=== PATIENT | female | born 1940 | race Caucasian/White ===

== ENCOUNTER → 2017-04-17 | Outpatient (CLI) | payer OTHER ==
--- NOTE | 2017-04-17 13:41 | DIAGNOSTIC IMAGING REPORT ---
LEFT TIBIA/FIBULA 2 VIEWS ROUTINE, LEFT ANKLE MIN 3 VIEWS ROUTINE CLINICAL HISTORY: M79.605 Leg pain, central, left. Left ankle pain. COMPARISON STUDY: None. FINDINGS: There is a left total knee arthroplasty. The bones are osteopenic. Soft tissue swelling within the distal left lower leg and left ankle. Severe osteoarthritis within the left ankle with [id number] articulation and subchondral sclerosis. No acute fracture or dislocation. Plantar heel spur. IMPRESSION: 1. No acute fracture or dislocation within the left tibia, fibula, or left ankle. 2. Severe osteoarthritis within the left ankle. Electronically signed by: Junior Howe M.D. 04/17/2017 1:40 PM Dictated Date/Time: 04/17/2017 1:36 PM
--- NOTE | 2017-04-17 13:42 | DIAGNOSTIC IMAGING REPORT ---
LEFT LOWER EXTREMITY VENOUS DOPPLER HISTORY: M79.605 Leg pain, central, left COMPARISON STUDY: None. FINDINGS: There is normal compressibility, flow, and augmentation within the left lower extremity deep venous system. IMPRESSION: No DVT within the left lower extremity. Electronically signed by: Junior Howe M.D. 04/17/2017 1:41 PM Dictated Date/Time: 04/17/2017 1:40 PM
--- NOTE | 2017-04-17 13:42 | DIAGNOSTIC IMAGING REPORT ---
LEFT TIBIA/FIBULA 2 VIEWS ROUTINE, LEFT ANKLE MIN 3 VIEWS ROUTINE CLINICAL HISTORY: M79.605 Leg pain, central, left. Left ankle pain. COMPARISON STUDY: None. FINDINGS: There is a left total knee arthroplasty. The bones are osteopenic. Soft tissue swelling within the distal left lower leg and left ankle. Severe osteoarthritis within the left ankle with [id number] articulation and subchondral sclerosis. No acute fracture or dislocation. Plantar heel spur. IMPRESSION: 1. No acute fracture or dislocation within the left tibia, fibula, or left ankle. 2. Severe osteoarthritis within the left ankle. Electronically signed by: Junior Howe M.D. 04/17/2017 1:40 PM Dictated Date/Time: 04/17/2017 1:36 PM
== END | disposition home or self-care (01) ==
PROVIDERS: ATTEND Physician Assistant Medical
DX: M79.605 Pain in left leg (principal); M19.072 Primary osteoarthritis, left ankle and foot

== ENCOUNTER → 2017-06-22 | Outpatient (CLI) | payer OTHER ==
--- NOTE | 2017-06-22 15:33 | MAMMOGRAPHY REPORT ---
BILATERAL DIGITAL SCREENING MAMMOGRAM WITH CAD: 06/22/2017 CLINICAL HISTORY: Routine screening. Patient has no complaints. TECHNIQUE: Bilateral CC, MLO and repeat left MLO views were obtained. Current study was also evaluat ed with a Computer Aided Detection (CAD) system. COMPARISON: Comparison is made to exams dated: 06/19/2016 mammogram, 06/18/2015 mammogram, 06/15/2014 m ammogram, 06/13/2013 mammogram, 06/09/2012 mammogram, and 05/28/2011 mammogram - [facility] nter. BREAST COMPOSITION: The tissue of both breasts is almost entirely fatty. FINDINGS: There is minimal vascular calcification in the breasts. A few stable benign-appearing pun ctate microcalcifications. No new suspicious mass, architectural distortion or cluster of microcalci fications is seen. IMPRESSION: ACR BI-RADS CATEGORY 1: NEGATIVE There is no mammographic evidence of malignancy. A 1 year screening mammogram is recommended. The pa tient will receive written notification of the results. Approximately 10% of breast cancers are not detected with mammography. A negative mammographic report should not delay biopsy if a clinically suggestive mass is present. Graciela Herrera M.D. ay/:06/22/2017 14:43:07 Drag Down: Merari NEVAREZ(R)(M), [facility] letter sent: Normal 1/2 BI-RADS Code: ACR BI-RADS Category 1: Negative
== END | disposition home or self-care (01) ==
LOC: C.MAMM 08:16
PROVIDERS: ATTEND Internal Medicine
DX: Z12.31 Encounter for screening mammogram for malignant neoplasm of breast (principal)

== ENCOUNTER → 2017-10-09 | Outpatient (CLI) | payer OTHER ==
[2017-10-09 12:21] LABS: BASO % 0.4 %; BASO ABS # 0.02 K/uL (0-0.2); COMPLETE YES; EOS % 1.8 %; HEMATOCRIT 39.8 % (37-47); IG% 0.2 %; LYMPH % 36.5 %; LYMPH ABS # 1.63 K/uL (1.2-3.4); MEAN CELL VOLUME 100.3 fL (80-100); MEAN CORPUSCULAR HEMOGLOBIN 33.2 pg (25-34); MEAN CORPUSCULAR HGB CONC 33.2 g/dl (32-36); MEAN PLATELET VOLUME 9.3 fL (7.4-10.4); MONO % 7.8 %; NEUT % 53.3 %; PLATELET COUNT 217 K/uL (130-400); RED BLOOD COUNT 3.97 M/uL (4.2-5.4); WHITE BLOOD COUNT 4.46 K/uL (4.8-10.8)
[2017-10-09 12:40] LABS: ALT/SGPT 34 U/L (12-78); AST/SGOT 22 U/L (15-37); BLOOD UREA NITROGEN 23 mg/dl (7-18); BUN/CREATININE RATIO 29.6 (10-20); CALCIUM 8.8 mg/dl (8.5-10.1); CARBON DIOXIDE 31 mmol/L (21-32); CHLORIDE 105 mmol/L (98-107); CHOLESTEROL 178 mg/dl (0-200); CREATININE 0.76 mg/dl (0.60-1.20); GLUCOSE 97 mg/dl (70-99); POTASSIUM 4.4 mmol/L (3.5-5.1); SODIUM 140 mmol/L (136-145); TRIGLYCERIDES 115 mg/dl (0-150); URIC ACID 4.4 mg/dl (2.6-7.2); VERY LOW DENSITY LIPOPROT CALC 23 mg/dl
[2017-10-09 12:50] LABS: ALB/GLOB RATIO 1.1 (0.9-2); ALKALINE PHOSPHATASE 71 U/L (45-117); HDL CHOLESTEROL 60 mg/dl; LDL CHOLESTEROL CALCULATED 95 mg/dl; THYROID STIMULATING HORMONE 0.806 uIu/ml (0.300-4.500)
== END | disposition home or self-care (01) ==
LOC: C.LABBFT 10:08
PROVIDERS: ATTEND Physician Assistant Medical
DX: M19.079 Primary osteoarthritis, unspecified ankle and foot (principal); E78.00 Pure hypercholesterolemia, unspecified

== ENCOUNTER → 2017-10-13 | Outpatient (CLI) | payer OTHER ==
--- NOTE | 2017-10-13 15:23 | DIAGNOSTIC IMAGING REPORT ---
L FOOT MIN 3 VIEWS ROUTINE CLINICAL HISTORY: 77 years-old Female presenting with M19.079 Osteoarthritis of [id number]. TECHNIQUE: Frontal, oblique, and lateral views of the left foot were obtained. COMPARISON: None. FINDINGS: Mild diffuse subcutaneous edema suggested. No acute fracture or malalignment. Prominent bone spur at the origin of the plantar fascia. Degenerative changes noted in the midfoot. IMPRESSION: Degenerative changes in the midfoot. Electronically signed by: Ivan Cary M.D. 10/13/2017 3:22 PM Dictated Date/Time: 10/13/2017 3:19 PM
[2017-10-13 17:10] LABS: FERRITIN 55.1 ng/ml (8.0-388.0)
== END | disposition home or self-care (01) ==
LOC: C.RAD1850 15:07
PROVIDERS: ATTEND Physician Assistant Medical
DX: M19.079 Primary osteoarthritis, unspecified ankle and foot (principal); D64.9 Anemia, unspecified

== ENCOUNTER 2021-01-29 11:20 | Inpatient (IN) ==
[2021-01-29] MEDS ORDERED: DEXAMETHASONE SOD INJ 4 MG/ML VIAL IV STA (11:29)
[2021-01-29] MEDS ORDERED: SODIUM CHLORIDE 0.9% 1000ML 1,000 ML IV STA (11:31)
--- NOTE | 2021-01-29 12:05 | XRay Report ---
XR chest 1V portable CLINICAL HISTORY: Chest pain. COMPARISON STUDY: No previous studies for comparison. FINDINGS: There are median sternotomy wires. No pneumothorax is noted. There may be trace bilateral p leural effusions. Lung volumes are diminished. Interstitial thickening is noted. There is suspected m ild bilateral airspace opacities. There is moderate cardiomegaly. Right hilar prominence is noted. IMPRESSION: 1. Interstitial thickening and suspected bilateral airspace opacities. The findings may reflect pulmo nary edema or an infectious process. Radiographic follow-up is recommended. 2. Possible trace bilateral pleural effusions. 3. Low lung volumes. 4. Cardiomegaly. 5. Right hilar prominence, likely due to pulmonary vessels. However, this should be assessed on follo w-up chest radiographs. ACT 112: Negative or not required by law. Electronically signed by: Chiki Jaime M.D. 01/29/2021 12:04 PM
[2021-01-29 12:21] LABS: Basophils # (auto) 0.03 K/uL (0-0.2); Basophils % (auto) 0.5 %; Eosinophils # (auto) 0.04 K/uL (0-0.5); Eosinophils % (auto) 0.7 %; Hematocrit (blood only) 36.6 % (37-47); Hemoglobin 12.3 g/dL (12.0-16.0); Immature Granulocytes # (auto) 0.01 K/uL (0.00-0.02); Immature Granulocytes % (auto) 0.2 %; Lymphocytes # (auto) 0.99 K/uL (1.2-3.4); Lymphocytes % (auto) 17.9 %; Mean Corpuscular Hemoglobin 33.3 pg (25-34); Mean Corpuscular Hgb Conc 33.6 g/dL (32-36); Mean Corpuscular Volume 99.2 fL (80-100); Mean Platelet Volume 9.5 fL (7.4-10.4); Monocytes # (auto) 0.41 K/uL (0.11-0.59); Monocytes % (auto) 7.4 %; Neutrophils # (auto) 4.06 K/uL (1.4-6.5); Neutrophils % (auto) 73.3 %; Platelet Count 211 K/uL (130-400); RDW Coefficient of Variation 15.3 % (11.5-14.5); RDW Standard Deviation 54.7 fL (36.4-46.3); Red Blood Count 3.69 M/uL (4.2-5.4); White Blood Count 5.54 K/uL (4.8-10.8)
[2021-01-29 12:35] LABS: Partial Thromboplastin Ratio 1.2; Partial Thromboplastin Time 30.7 Seconds (21.0-31.0); Prothrombin Time 10.3 Seconds (9.0-12.0)
[2021-01-29 12:49] LABS: BUN Creatinine Ratio 18.9 (10-20); Creatinine Clr Calc Pharmacy 57.4 ml/min; Est GFR (Non-African American) 60.4; Magnesium 2.3 mg/dl (1.8-2.4); Potassium 4.1 mmol/L (3.5-5.1)
[2021-01-29 12:54] LABS: Troponin I 0.032 ng/ml (0-0.045)
[2021-01-29 12:58] LABS: Influenza A virus by PCR Negative (Neg); Influenza B virus by PCR Negative (Neg); RSV by PCR Negative (Neg); SARS CoV2 RNA(COVID-19) InHosp NEGATIVE (Negative)
[2021-01-29] MEDS ORDERED: FUROSEMIDE 40 MG/4 ML VIAL IV STA (13:10)
[2021-01-29] MEDS ORDERED: OPTIRAY 320 125ml IV ONE (13:26)
--- NOTE | 2021-01-29 13:44 | CT Scan Report ---
CT ANGIOGRAM OF THE CHEST CLINICAL HISTORY: Atypical chest pain. Dyspnea. COMPARISON STUDY: Chest x-ray dated 01/29/2021. TECHNIQUE: Following the IV administration of 120 cc of Optiray 320, CT angiogram of the chest was pe rformed from the upper abdomen to the thoracic inlet utilizing the pulmonary embolus protocol. Images are reviewed in the axial, sagittal, and coronal planes. 3-D MIPS images are created and assessed. I V contrast was administered without complication. A dose lowering technique was utilized adhering to the principles of ALARA. CT DOSE: 654.16 mGy.cm FINDINGS: Thyroid: Normal in size and heterogeneous in attenuation. Thoracic aorta: There is atherosclerotic calcification of the thoracic aorta, which is normal in kimber kalpesh and demonstrates standard 3-vessel arch anatomy. No dissection is seen. Pulmonary vasculature: The pulmonary trunk is normal in caliber. There are no filling defects identif ied in main, lobar, or segmental pulmonary branches to suggest pulmonary embolus. Evaluation of the p eripheral branches is degraded by motion artifact. Heart: The patient is status post midline sternotomy. The heart is enlarged and without pericardial e ffusion. The coronary arteries, aortic valve leaflets, and mitral annulus are densely calcified. Lungs and pleural spaces: Evaluation of the lung parenchyma is degraded by motion artifact. Diffuse i ntralobular septal thickening is seen throughout both lungs with associated groundglass change. There are moderate pleural effusions with associated atelectasis. There are scattered calcified granulomas . Mediastinum: There is no mediastinal lymphadenopathy. Cassi: Clear. Axillae: There is no axillary lymphadenopathy. Upper abdomen: Calcified gallstones and/or gallbladder wall calcifications are partially imaged. A sm all hiatal hernia is noted. Partially visualized upper abdominal viscera is otherwise within normal l imits. Skeletal structures: The skeletal structures are osteopenic. Degenerative change is noted in the shou lders and thoracic spine. No lytic or blastic bony lesions are seen. IMPRESSION: 1. There is no evidence of pulmonary embolus in the main, lobar, or segmental pulmonary arteries. 2. Cardiomegaly with evidence of congestive failure. 3. Diffuse groundglass change likely represents pulmonary edema. Correlate clinically for evidence of a superimposed infectious/inflammatory pneumonitis. 4. Moderate pleural effusions. 5. Calcified gallstones and/or gallbladder wall calcifications are partially visualized. This could b e further assessed with a right upper quadrant ultrasound if clinically warranted. 6. Additional findings as above. ACT 112: Negative or not required by law. Electronically signed by: Ricky Hammer M.D. 01/29/2021 1:43 PM
--- NOTE | 2021-01-29 14:51 | Electrocardiogram Report ---
Test Reason : Blood Pressure : / mmHG Vent. Rate : 084 BPM Atrial Rate : 084 BPM P-R Int : 200 ms QRS Dur : 108 ms QT Int : 406 ms P-R-T Axes : 060 039 183 degrees QTc Int : 479 ms Normal sinus rhythm Possible Left atrial enlargement Abnormal ECG When compared with ECG of 25-FEB-2005 14:14, QRS duration has increased Nonspecific T wave abnormality, worse in Inferior leads T wave inversion now evident in Lateral leads QT has lengthened Confirmed by Myron Brown ([id number]) on 01/29/2021 2:51:04 PM Referred By: REFERRED SELF Confirmed By:Myron Brown
--- NOTE | 2021-01-29 15:42 | History & Physical Report ---
Date of Service January 29, 2021 Assessment & Plan (1) CHF (congestive heart failure): Patient with acute on chronic failure, currently her physical exam and activity restrictions are likely potentiating each other symptoms - Will get an ECHO to evaluate her valves- high suspicion for Aortic and Mitral Valve dysfunction - Diurese with another 40mg lasix tonight- then re-assess in morning- do not want to drop her pre-load to aggressivly - Continue her Metoprolol and may need an increase- evaluate following ECHo - Pulmonary congestion evident on CT scan and CXR- with likely transudative pleural effusions- diurese (2) Murmur: As above, consistent with Aortic and Mitral systolic murmurs. (3) History of aortic valve replacement: As above - Cardiology consulted to assist with medical evaluation (4) HTN (hypertension): Well controlled - Continue metoprolol - Continue risk reduction with ASA, statin - Consider SEAN following ECHO - Will get one more set of Troponins. (5) Arthritis: Chronic with bilateral knees - Hold NSAIDs while in house - Tylenol 650mg Q4 - Can add on lidocaine patch or cream if needed for discomfort (6) Pleural effusion: Likely transudative with history and physical exam - no acute need for intervention - diurese will be slow but should decrease - follow clinically History of Present Illness Chief Complaint: shortness of breath Primary Care Provider: Chester Garcia MD 80 YOF with past medical history of Arthritis, bilateral knee replacements, Aortic-bioprosthetic valve replacement (2008), mild mitral regurge, HTN, HLD, obesity. Patient came to the emergency room for 3 days of increased dyspnea and chest pain. The pain is in the center of her chest and is a burning pain, not a pain that she normal gets with her reflex. The pain would come and go, she does NOT notice that it gets worse with activity. The pain does not radiate and maybe associated with her shortness of breath. Denies any nausea vomiting. Her dyspnea is significantly worse, she gets short of breath walking ~25-30 feet, she normally has 1 pillow orthopnea and used 3 pillows last night and unable to sleep much, she also has 12 steps at home to go up and has to stop about every 3 steps to take a break. She thinks that possibly the dyspnea has been going on a little longer but is unsure. She is followed by Dr. Carney for cardiology was last seen in May and had an ECHO done at that time (EF 60-65%, normal prosthetic valve, mild MR diastolic dysfunction grade II). In the ER the patient had a CT scan of the chest which was negative for PE, CXR, ECG, elevated BNP. Was given 40 mg IV Lasix and Decadron 6mg IV. Hospitalist team was notified for admission. Patient will be admitted to obtain an ECHO to evaluate her heart valve and function, diurese, and monitor telemetry. Allergies Allergy/AdvReac Type Severity Reaction Status Date / Time No Known Allergies Allergy Unknown PT NOT Verified 01/29/21 14:02 ALLERGIC TO OXYCODONE-HAD BEFORE WITHOUT PROB Home Medications Medication Instructions Recorded Confirmed Type aspirin 325 mg tablet 325 mg PO DAILY tab 05/24/19 01/29/21 History cholecalciferol (vitamin D3) 25 1,000 units PO DAILY cap 05/24/19 01/29/21 History mcg (1,000 unit) capsule coenzyme Q10 100 mg capsule 100 mg PO DAILY cap 05/24/19 01/29/21 History cranberry 400 mg capsule 400 mg PO DAILY 05/24/19 01/29/21 History multivitamin 1 tab PO DAILY 05/24/19 01/29/21 History potassium 99 mg tablet 99 mg PO DAILY tab 06/06/19 01/29/21 History vitamin E acetate 1 tab PO DAILY 06/06/20 01/29/21 History zinc sulfate 1 tab PO DAILY 06/06/20 01/29/21 History atorvastatin 80 mg tablet 80 mg PO DAILY #90 tab 08/28/20 01/29/21 Rx celecoxib 200 mg capsule 200 mg PO DAILY #90 cap 01/08/21 01/29/21 Rx metoprolol tartrate 25 mg tablet 25 mg PO BID #180 tab 01/28/21 01/29/21 Rx Past Med/Surg History Medical History (Updated 01/29/21 @ 18:05 by Ricky Enriquez) Arthritis HLD (hyperlipidemia) HTN (hypertension) Hypercholesterolemia Spinal stenosis Surgical History (Updated 01/29/21 @ 15:29 by MEGAN Blancas) History of aortic valve replacement 2008, Dr Quintero, [facility] [place] History of back surgery History of cataract surgery History of total knee arthroplasty B/L, 2004, Dr Tavares History of tubal ligation Hx of repair of rotator cuff right, 1992, Dr Tavares Family History Mother Coronary heart disease Father Malignant neoplasm of pancreas Denies family history of Ovarian cancer Prostate cancer Myocardial infarction Breast cancer Colorectal cancer Social History Smoking Status: Former smoker Tobacco Type: Cigarettes Age Started Using Tobacco: 15; Age Quit Using Tobacco: 52; packs per day: 1; Years Smoked: 37; Cigarettes Per Day: 20; Number of Years Since Quit: 27; Second Hand Exposure: No; Do You Dip or Chew Tobacco: No; Hx Alcohol Use: No Hx Substance Use: No Preferred Language: Bulgarian Communication Ability: Effective Visual Impairment: No Limitations Hearing Ability: Normal Embedded Software Developer Required: No Beliefs That Will Affect Care: None marital status: Current Living Situation: Significant Other current occupational status: retired Feels Safe at Home: Yes Safety Concerns: Feels Safe At This Time Childhood Exposure to Second-Hand Smoke: No Dental Care, Regularly: No Physical Activity Frequency: Does not Exercise Seatbelt Use: always Sunscreen Use: Yes Assistive Devices: None Review of Systems Review of Systems: REVIEW OF SYSTEMS: Constitutional: No fever, sweats or chills Eyes: No diplopia, no worsening or blurred vision ENT: normal hearing, no trouble swallowing Respiratory: (+) dyspnea at rest or on exertion, No cough, sputum, Cardiovascular: (+) chest pain, (-) tightness or palpitations Abdomen: No pain, nausea, vomiting, diarrhea or constipation Musculoskeletal: No joint pain, calf pain, swelling Neurologic: No weakness, numbness/tingling, or balance problems Psychiatric: No anxiety or depression Skin: No rash or itch Physical Exam Physical Exam: PHYSICAL EXAM: General: awake, alert, no apparent distress Head: Normocephalic, atraumatic ENT: PERRL, EOMI, no pharyngeal exudate, mucous membranes moist Neuro: AAO x 3, speech clear and appropriate, strength intact bilaterally 5/5, sensation intact and equal all extremities and dermatomes, no pronator drift Chest: equal rise and fall of the chest, no accessory muscle use, can not lay flat, no heaves or thrills, bilateral scattered crackles to auscultation, on 2lNC Cardiac: Regular rate and rhythm, telemetry, reviewed, skin warm dry, cap refill <3 seconds, peripheral pulses +2 no JVD, systolic murmurs best heard at RSB and LSB with radiation to the carotids as well as to the axillae. Mitral is high pitched crescendo decrescendo, Aortic is crescendo. GI: NABS x 4 quadrants, soft, nontender to palpation, no rebound, guarding or tenderness : Spontaneously voiding, no pain, no CVA tenderness, Extremities: Normal inspection, no peripheral edema or erythema, calfs nontender to palpation Psych: Normal mood and affect Skin: no rash or erythema Results & Data Results & Data ([facility]) Vital Signs (Past 12 Hours) Vital Signs Temp Pulse Resp BP Pulse Ox 01/29/21 14:00 64 20 149/74 H 98 01/29/21 13:38 76 28 H 126/72 99 01/29/21 13:16 61 18 131/63 100 01/29/21 13:00 64 19 117/68 100 01/29/21 12:45 62 24 119/52 L 99 01/29/21 12:30 62 23 119/51 L 100 01/29/21 12:16 68 22 123/55 L 99 01/29/21 12:03 70 24 142/56 H 99 01/29/21 12:01 76 23 132/60 99 01/29/21 12:00 71 22 98 01/29/21 11:45 70 22 122/65 98 01/29/21 11:42 72 18 98 01/29/21 11:34 70 18 148/79 H 98 01/29/21 11:32 89 L 01/29/21 11:23 36.2 C L 101 H 20 145/71 H 89 L Laboratory Results Abnormal lab results 01/29/21 01/29/21 Range/Units 11:54 11:54 RBC 3.69 L (4.2-5.4) M/uL Hct 36.6 L (37-47) % RDW Std Deviation 54.7 H (36.4-46.3) fL RDW Coeff of Lynnette 15.3 H (11.5-14.5) % Lymph # (Auto) 0.99 L (1.2-3.4) K/uL Chloride 108 H (98-107) mmol/L Glucose 116 H (70-99) mg/dl NT-Pro-B Natriuret Pep 6993 H (0-1800) pg/ml Diagnostic Findings XR chest 1V portable CLINICAL HISTORY: Chest pain. COMPARISON STUDY: No previous studies for comparison. FINDINGS: There are median sternotomy wires. No pneumothorax is noted. There may be trace bilateral pleural effusions. Lung volumes are diminished. Interstitial thickening is noted. There is suspected mild bilateral airspace opacities. There is moderate cardiomegaly. Right hilar prominence is noted. IMPRESSION: 1. Interstitial thickening and suspected bilateral airspace opacities. The findings may reflect pulmonary edema or an infectious process. Radiographic follow-up is recommended. 2. Possible trace bilateral pleural effusions. 3. Low lung volumes. 4. Cardiomegaly. 5. Right hilar prominence, likely due to pulmonary vessels. However, this should be assessed on follow-up chest radiographs. CT ANGIOGRAM OF THE CHEST CLINICAL HISTORY: Atypical chest pain. Dyspnea. COMPARISON STUDY: Chest x-ray dated 01/29/2021. TECHNIQUE: Following the IV administration of 120 cc of Optiray 320, CT angiogram of the chest was performed from the upper abdomen to the thoracic inlet utilizing the pulmonary embolus protocol. Images are reviewed in the axial, sagittal, and coronal planes. 3-D MIPS images are created and assessed. IV contrast was administered without complication. A dose lowering technique was utilized adhering to the principles of ALARA. CT DOSE: 654.16 mGy.cm FINDINGS: Thyroid: Normal in size and heterogeneous in attenuation. Thoracic aorta: There is atherosclerotic calcification of the thoracic aorta, which is normal in caliber and demonstrates standard 3-vessel arch anatomy. No dissection is seen. Pulmonary vasculature: The pulmonary trunk is normal in caliber. There are no filling defects identified in main, lobar, or segmental pulmonary branches to suggest pulmonary embolus. Evaluation of the peripheral branches is degraded by motion artifact. Heart: The patient is status post midline sternotomy. The heart is enlarged and without pericardial effusion. The coronary arteries, aortic valve leaflets, and mitral annulus are densely calcified. Lungs and pleural spaces: Evaluation of the lung parenchyma is degraded by motion artifact. Diffuse intralobular septal thickening is seen throughout both lungs with associated groundglass change. There are moderate pleural effusions with associated atelectasis. There are scattered calcified granulomas. Mediastinum: There is no mediastinal lymphadenopathy. Cassi: Clear. Axillae: There is no axillary lymphadenopathy. Upper abdomen: Calcified gallstones and/or gallbladder wall calcifications are partially imaged. A small hiatal hernia is noted. Partially visualized upper abdominal viscera is otherwise within normal limits. Skeletal structures: The skeletal structures are osteopenic. Degenerative change is noted in the shoulders and thoracic spine. No lytic or blastic bony lesions are seen. IMPRESSION: 1. There is no evidence of pulmonary embolus in the main, lobar, or segmental pulmonary arteries. 2. Cardiomegaly with evidence of congestive failure. 3. Diffuse groundglass change likely represents pulmonary edema. Correlate clinically for evidence of a superimposed infectious/inflammatory pneumonitis. 4. Moderate pleural effusions. 5. Calcified gallstones and/or gallbladder wall calcifications are partially visualized. This could be further assessed with a right upper quadrant ultrasound if clinically warranted. 6. Additional findings as above. Medications Administered Home Medications aspirin 325 mg tablet 325 mg PO DAILY tab 05/24/19 [History Confirmed 01/29/21] cholecalciferol (vitamin D3) 25 mcg (1,000 unit) capsule 1,000 units PO DAILY cap 05/24/19 [History Confirmed 01/29/21] coenzyme Q10 100 mg capsule 100 mg PO DAILY cap 05/24/19 [History Confirmed 01/29/21] cranberry 400 mg capsule 400 mg PO DAILY 05/24/19 [History Confirmed 01/29/21] multivitamin 1 tab PO DAILY 05/24/19 [History Confirmed 01/29/21] potassium 99 mg tablet 99 mg PO DAILY tab 06/06/19 [History Confirmed 01/29/21] vitamin E acetate 1 tab PO DAILY 06/06/20 [History Confirmed 01/29/21] zinc sulfate 1 tab PO DAILY 06/06/20 [History Confirmed 01/29/21] atorvastatin 80 mg tablet 80 mg PO DAILY #90 tab 08/28/20 [Rx Confirmed 01/29/21] celecoxib 200 mg capsule 200 mg PO DAILY #90 cap 01/08/21 [Rx Confirmed 01/29/21] metoprolol tartrate 25 mg tablet 25 mg PO BID #180 tab 01/28/21 [Rx Confirmed 01/29/21] Dexamethasone (Dexamethasone Sod Inj 4 Mg/Ml Vial) 6 mg IV NOW STA Stop: 01/29/21 11:30 Last Admin: 01/29/21 11:55 Dose: 6 mg Documented by: [id number] Furosemide (Furosemide 40 Mg/4 Ml Vial) 40 mg IV NOW STA Stop: 01/29/21 13:11 Last Admin: 01/29/21 13:20 Dose: 40 mg Documented by: [id number] Sodium Chloride (Nss 1000ml) 1,000 mls @ 999 mls/hr IV .Q1H1M STA Stop: 01/29/21 12:31 Last Admin: 01/29/21 11:55 Dose: Not Given Documented by: [id number] Ioversol (Optiray 320 125ml) 120 ml IV ONCE ONE Stop: 01/29/21 13:27 Last Admin: 01/29/21 13:26 Dose: 120 ml Documented by: [id number] ECG Additional Comments: Test Reason : Vent. Rate : 084 BPM Atrial Rate : 084 BPM P-R Int : 200 ms QRS Dur : 108 ms QT Int : 406 ms P-R-T Axes : 060 039 183 degrees QTc Int : 479 ms Normal sinus rhythm Possible Left atrial enlargement Abnormal ECG When compared with ECG of 25-FEB-2005 14:14, QRS duration has increased Nonspecific T wave abnormality, worse in Inferior leads T wave inversion now evident in Lateral leads QT has lengthened Confirmed by Myron Brown ([id number]) on 01/29/2021 2:51:04 PM Code Status & VTE Plan Code Status CODE: FULL VTE: Lovenox 40 QD VTE Prophylaxis Plan VTE Prophylaxis will be ordered: Yes Supervising Physician Co-Signing Physician Notes Attending Attestation: Pt seen and examined, chart reviewed, admit care plan d/w MEGAN Ames. I agree w/ the ortiz components of his documentation. 80yo female with known valvular heart disease - s/p AVR (bovine) in 2008 - follows w/ Dr Carney. Presents with worsening dyspnea and edema with clinical/radiographic evidence of decompensated CHF. PMH, PSH, allergies, meds, sochx, famhx - reviewed of note - patient is not on diuretics at home VSS, mild hypoxia gen - NAD, obese neck - JVD present heart - 3/6 holosystolic murmur RUSB; 1-2/6 systolic murmur LLSB w/ radiation to axillae; RRR, s1 s2 lungs - bibasilar rales abd - soft ext - 1+ edema b/l labs reviewed imaging and EKG reviewed A/P: 1. acute/chronic diastolic CHF 2. h/o valvular heart disease s/p AVR 2008; now with significant aortic murmur worrisome for worsening AVR function diurese echo cards consult cont beta daniel, asa, statin Branden Ramirez MD PG Care Time/CCT Total # of Minutes Spent Total Time Spent with Patient: Total time spent is greater than 50% in coordination of care (as documented) at patient's floor/unit and/or counseling patient: Coding Level of Care Code 95744 Initial Inpt Care Lvl 2 Diagnoses CHF (congestive heart failure) I50.31 Heart failure chronicity: acute Heart failure type: diastolic Murmur R01.1 History of aortic valve replacement Z95.2 HTN (hypertension) I10 Hypertension type: essential hypertension Arthritis M19.90 Pleural effusion J90 (1) CHF (congestive heart failure) Heart failure chronicity: acute Heart failure type: diastolic Qualified Code(s): I50.31 - Acute diastolic (congestive) heart failure (2) HTN (hypertension) Hypertension type: essential hypertension Qualified Code(s): I10 - Essential (primary) hypertension
[2021-01-29] MEDS ORDERED: ONDANSETRON INJ 2 MG/ML 2 ML VIAL IV PRN (17:49)
[2021-01-29] MEDS ORDERED: POLYETHYLENE (MIRALAX) 17 GM PACK PO PRN (17:49)
[2021-01-29] MEDS ORDERED: ACETAMINOPHEN 325 MG TAB PO PRN (17:49)
--- NOTE | 2021-01-29 17:57 | Emergency Department Note ---
History of Present Illness General Chief complaint: Shortness of Breath/Dyspnea Stated complaint: SOB, CHEST PAIN Time Seen by Provider: 01/29/21 11:28 History of Present Illness Provider complaint: Shortness of breath Onset (ago): week(s) 1 Location: chest Radiation: non-radiation Severity: mild Pain Consistency: + intermittent Maximum Pain Intensity: 3 Current Pain Intensity: 0 Quality: + aching Relieved By: + none Exacerbated By: + none Associated symptoms: + chest pain and + shortness of breath; no cough, no fever/chills, no headaches, no nausea/vomiting and no syncope 72-year-old female presents emergency department for chest pain difficulty breathing. Patient reports her symptoms on for last week. No hemoptysis. Patient does not use home oxygen. No recent travel. Patient does state that she has been vaccinated against COVID-19. No fevers or loss of taste or smell. No nausea vomiting diarrhea hematuria. Home Medications Medication Instructions Recorded Confirmed Type aspirin 325 mg tablet 325 mg PO DAILY tab 05/24/19 01/29/21 History cholecalciferol (vitamin D3) 25 1,000 units PO DAILY cap 05/24/19 01/29/21 History mcg (1,000 unit) capsule coenzyme Q10 100 mg capsule 100 mg PO DAILY cap 05/24/19 01/29/21 History cranberry 400 mg capsule 400 mg PO DAILY 05/24/19 01/29/21 History multivitamin 1 tab PO DAILY 05/24/19 01/29/21 History potassium 99 mg tablet 99 mg PO DAILY tab 06/06/19 01/29/21 History vitamin E acetate 1 tab PO DAILY 06/06/20 01/29/21 History zinc sulfate 1 tab PO DAILY 06/06/20 01/29/21 History atorvastatin 80 mg tablet 80 mg PO DAILY #90 tab 08/28/20 01/29/21 Rx celecoxib 200 mg capsule 200 mg PO DAILY #90 cap 01/08/21 01/29/21 Rx metoprolol tartrate 25 mg tablet 25 mg PO BID #180 tab 01/28/21 01/29/21 Rx Allergies Allergy/AdvReac Type Severity Reaction Status Date / Time No Known Allergies Allergy Unknown PT NOT Verified 01/29/21 14:02 ALLERGIC TO OXYCODONE-HAD BEFORE WITHOUT PROB Past Med/Surg History Medical History (Updated 01/29/21 @ 18:05 by Ricky Enriquez) Arthritis HLD (hyperlipidemia) HTN (hypertension) Hypercholesterolemia Spinal stenosis Surgical History (Updated 01/29/21 @ 15:29 by MEGAN Blancas) History of aortic valve replacement 2008, Dr Quintero, [facility] [place] History of back surgery History of cataract surgery History of total knee arthroplasty B/L, 2004, Dr Tavares History of tubal ligation Hx of repair of rotator cuff right, 1992, Dr Tavares Family History Mother Coronary heart disease Father Malignant neoplasm of pancreas Denies family history of Ovarian cancer Prostate cancer Myocardial infarction Breast cancer Colorectal cancer Social History Smoking Status: Former smoker Tobacco Type: Cigarettes Age Started Using Tobacco: 15; Age Quit Using Tobacco: 52; packs per day: 1; Years Smoked: 37; Cigarettes Per Day: 20; Number of Years Since Quit: 27; Second Hand Exposure: No; Hx Alcohol Use: No Hx Substance Use: No Preferred Language: Belarusian Visual Impairment: No Limitations Hearing Ability: Normal marital status: Current Living Situation: Significant Other current occupational status: retired Feels Safe at Home: Yes Childhood Exposure to Second-Hand Smoke: No Dental Care, Regularly: No Physical Activity Frequency: Does not Exercise Seatbelt Use: always Sunscreen Use: Yes Review of Systems A total of 10 systems reviewed and were otherwise negative Physical Exam Vital Signs Vital Signs - 24 hr 01/29/21 11:23 01/29/21 11:32 01/29/21 11:34 Temperature 36.2 C L Temperature Source Temporal Artery Scan Pulse Rate 101 H 70 Pulse Rate from SpO2 Sensor 72 Respiratory Rate 20 18 Blood Pressure 145/71 H 148/79 H Blood Pressure Mean 95 102 Pulse Oximetry 89 L 89 L 98 Oxygen Delivery Method Room Air Room Air Oxygen Flow Rate 0 Sepsis Recent Fever Within 48 Hours No Sepsis New/Unexplained Change in Mental Status No Sepsis Action Taken by Nursing No Action Required Oxygen Flow Rate - Titration 2 Pulse Oximetry Post Tiitration 91 01/29/21 11:42 01/29/21 11:45 01/29/21 12:00 Temperature Temperature Source Pulse Rate 72 70 71 Pulse Rate from SpO2 Sensor 73 70 72 Respiratory Rate 18 22 22 Blood Pressure 122/65 Blood Pressure Mean 84 Pulse Oximetry 98 98 98 Oxygen Delivery Method Oxygen Flow Rate Sepsis Recent Fever Within 48 Hours Sepsis New/Unexplained Change in Mental Status Sepsis Action Taken by Nursing Oxygen Flow Rate - Titration Pulse Oximetry Post Tiitration 01/29/21 12:01 01/29/21 12:03 01/29/21 12:16 Temperature Temperature Source Pulse Rate 76 70 68 Pulse Rate from SpO2 Sensor 68 70 67 Respiratory Rate 23 24 22 Blood Pressure 132/60 142/56 H 123/55 L Blood Pressure Mean 84 84 77 Pulse Oximetry 99 99 99 Oxygen Delivery Method Oxygen Flow Rate Sepsis Recent Fever Within 48 Hours Sepsis New/Unexplained Change in Mental Status Sepsis Action Taken by Nursing Oxygen Flow Rate - Titration Pulse Oximetry Post Tiitration 01/29/21 12:30 01/29/21 12:45 01/29/21 13:00 Temperature Temperature Source Pulse Rate 62 62 64 Pulse Rate from SpO2 Sensor 63 62 64 Respiratory Rate 23 24 19 Blood Pressure 119/51 L 119/52 L 117/68 Blood Pressure Mean 73 74 84 Pulse Oximetry 100 99 100 Oxygen Delivery Method Nasal Cannula Nasal Cannula Oxygen Flow Rate 2 2 Sepsis Recent Fever Within 48 Hours Sepsis New/Unexplained Change in Mental Status Sepsis Action Taken by Nursing Oxygen Flow Rate - Titration Pulse Oximetry Post Tiitration 01/29/21 13:16 01/29/21 13:38 01/29/21 14:00 Temperature Temperature Source Pulse Rate 61 76 64 Pulse Rate from SpO2 Sensor 64 76 64 Respiratory Rate 18 28 H 20 Blood Pressure 131/63 126/72 149/74 H Blood Pressure Mean 85 90 99 Pulse Oximetry 100 99 98 Oxygen Delivery Method Nasal Cannula Nasal Cannula Nasal Cannula Oxygen Flow Rate 2 2 2 Sepsis Recent Fever Within 48 Hours Sepsis New/Unexplained Change in Mental Status Sepsis Action Taken by Nursing Oxygen Flow Rate - Titration Pulse Oximetry Post Tiitration 01/29/21 14:15 01/29/21 14:31 01/29/21 14:46 Temperature Temperature Source Pulse Rate 64 92 H 70 Pulse Rate from SpO2 Sensor 66 73 65 Respiratory Rate 23 25 H 24 Blood Pressure 153/90 H 145/68 H 129/73 Blood Pressure Mean 111 93 91 Pulse Oximetry 98 99 99 Oxygen Delivery Method Oxygen Flow Rate Sepsis Recent Fever Within 48 Hours Sepsis New/Unexplained Change in Mental Status Sepsis Action Taken by Nursing Oxygen Flow Rate - Titration Pulse Oximetry Post Tiitration Physical Exam GENERAL: He is oriented to person, place, and time. He appears well-developed and well-nourished. He does not appear distressed. HENT: Exam performed. - Head: Normocephalic and atraumatic. - Right Ear: External ear normal. No mastoid tenderness. - Left Ear: External ear normal. No mastoid tenderness. - Mouth/Throat: The oropharynx is clear and moist. No trismus in the jaw. No dental abscesses or uvula swelling. No oropharyngeal exudate or tonsillar abscesses. EYES: Conjunctivae and EOM are normal. Pupils are equal, round, and reactive to light. Right eye exhibits no discharge. Left eye exhibits no discharge. No scleral icterus. NECK: Normal range of motion. Neck supple. No JVD present. No spinous process tenderness present. No carotid bruit present. No rigidity. No tracheal deviation and normal range of motion present. No Brudzinski's sign and no Kernig's sign noted. CV: Normal rate, regular rhythm, systolic murmur and intact distal pulses. There is no peripheral edema. Palpable radial pulses bue. PULM/CHEST: Effort normal and breath sounds normal. No respiratory distress. No stridor. He has no wheezes. He has no rales. - Chest Wall: He exhibits no tenderness. ABD: The abdomen is soft. Bowel sounds are normal. He has no distension. No mass is present. There is no tenderness. There is no rebound, no guarding, no Donato's sign and no tenderness at McBurney's point. Rovsig negative. MUSC/SKEL: Normal range of motion. There is no peripheral edema, tenderness or deformity. LYMPH: No cervical adenopathy. NEURO: He is alert and oriented to person, place, and time. He has normal strength. No cranial nerve deficit or sensory deficit. Coordination and gait normal. GCS eye subscore is 4. GCS verbal subscore is 5. GCS motor subscore is 6. Cerebellar tests wnl. SKIN: Skin is warm and dry. He is not diaphoretic. PSYCH: He has a normal mood and affect. Behavior is normal. Judgment and thought content normal. Course Course 1128: The patient was evaluated in room B7. A complete history and physical exam was performed Cardiac monitoring: An order was placed for continuous cardiac monitoring. The monitor shows a rate of 80 with sinus rhythm Patient was found to be hypoxic on room air on arrival in the emergency department. Patient is placed on 2 L nasal cannula supplemental oxygen which improved the patient's oxygen saturation. 1410: Vital signs stable on supplemental oxygen. Labs show an elevated proBNP of 6993. Chest x-ray does show fluid overload and cardiomegaly on chest x-ray. Patient be given Lasix 40 mg IV push [facility] will be [facility]. Administered Medications Discontinued Medications Dexamethasone (Dexamethasone Sod Inj 4 Mg/Ml Vial) 6 mg IV NOW STA Stop: 01/29/21 11:30 Last Admin: 01/29/21 11:55 Dose: 6 mg Documented by: [id number] Furosemide (Furosemide 40 Mg/4 Ml Vial) 40 mg IV NOW STA Stop: 01/29/21 13:11 Last Admin: 01/29/21 13:20 Dose: 40 mg Documented by: [id number] Sodium Chloride (Nss 1000ml) 1,000 mls @ 999 mls/hr IV .Q1H1M STA Stop: 01/29/21 12:31 Last Admin: 01/29/21 11:55 Dose: Not Given Documented by: [id number] Ioversol (Optiray 320 125ml) 120 ml IV ONCE ONE Stop: 01/29/21 13:27 Last Admin: 01/29/21 13:26 Dose: 120 ml Documented by: [id number] Critical Care Time Critical Care Time: Yes Total Critical Care Time: 46 I have personally spent greater than 46 minutes of critical care time in the direct management of this patient. This includes bedside care, interpretation of diagnostic studies, and testing, discussion with consultants, patient, and family members, and other required patient management activities. This 46 m inutes is in excess of all separately billable procedures. Medical Decision Making Laboratory Data Result diagrams: 01/29/21 11:54 01/29/21 11:54 Lab Results 01/29/21 01/29/21 01/29/21 Range/Units 11:54 11:54 11:54 WBC 5.54 (4.8-10.8) K/uL RBC 3.69 L (4.2-5.4) M/uL Hgb 12.3 (12.0-16.0) g/dL Hct 36.6 L (37-47) % MCV 99.2 (80-100) fL MCH 33.3 (25-34) pg MCHC 33.6 (32-36) g/dL RDW Std Deviation 54.7 H (36.4-46.3) fL RDW Coeff of Lynnette 15.3 H (11.5-14.5) % Plt Count 211 (130-400) K/uL MPV 9.5 (7.4-10.4) fL Immature Gran % (Auto) 0.2 % Neut % (Auto) 73.3 % Lymph % (Auto) 17.9 % [place] % (Auto) 7.4 % Eos % (Auto) 0.7 % Baso % (Auto) 0.5 % Neut # (Auto) 4.06 (1.4-6.5) K/uL Lymph # (Auto) 0.99 L (1.2-3.4) K/uL [place] # (Auto) 0.41 (0.11-0.59) K/uL Eos # (Auto) 0.04 (0-0.5) K/uL Baso # (Auto) 0.03 (0-0.2) K/uL Immature Gran # (Auto) 0.01 (0.00-0.02) K/uL PT 10.3 (9.0-12.0) Seconds INR 1.0 (0.9-1.1) APTT 30.7 (21.0-31.0) Seconds PTT Ratio 1.2 Sodium 140 (136-145) mmol/L Potassium 4.1 (3.5-5.1) mmol/L Chloride 108 H (98-107) mmol/L Carbon Dioxide 29 (21-32) mmol/L Anion Gap 3.0 (3-11) BUN 17 (7-18) mg/dl Creatinine 0.91 (0.6-1.2) mg/dl Est Cr Clr Drug Dosing 57.4 ml/min Est GFR ( Amer) 70.0 Est GFR (Non-Af Amer) 60.4 BUN/Creatinine Ratio 18.9 (10-20) Glucose 116 H (70-99) mg/dl Calcium 9.0 (8.5-10.1) mg/dl Magnesium 2.3 (1.8-2.4) mg/dl Troponin I 0.032 (0-0.045) ng/ml NT-Pro-B Natriuret Pep 6993 H (0-1800) pg/ml Lipase 114 (73-393) U/L COVID-19 Eval Order SARS-CoV-2 (PCR) (Negative) Influenza Type A (PCR) (Neg) Influ A Molecular Assay Influenza Type B (PCR) (Neg) Influ B Molecular Assay RSV (RT-PCR) (Neg) 01/29/21 01/29/21 01/29/21 Range/Units 11:54 11:58 11:58 WBC (4.8-10.8) K/uL RBC (4.2-5.4) M/uL Hgb (12.0-16.0) g/dL Hct (37-47) % MCV (80-100) fL MCH (25-34) pg MCHC (32-36) g/dL RDW Std Deviation (36.4-46.3) fL RDW Coeff of Lynnette (11.5-14.5) % Plt Count (130-400) K/uL MPV (7.4-10.4) fL Immature Gran % (Auto) % Neut % (Auto) % Lymph % (Auto) % [place] % (Auto) % Eos % (Auto) % Baso % (Auto) % Neut # (Auto) (1.4-6.5) K/uL Lymph # (Auto) (1.2-3.4) K/uL [place] # (Auto) (0.11-0.59) K/uL Eos # (Auto) (0-0.5) K/uL Baso # (Auto) (0-0.2) K/uL Immature Gran # (Auto) (0.00-0.02) K/uL PT (9.0-12.0) Seconds INR (0.9-1.1) APTT (21.0-31.0) Seconds PTT Ratio Sodium (136-145) mmol/L Potassium (3.5-5.1) mmol/L Chloride (98-107) mmol/L Carbon Dioxide (21-32) mmol/L Anion Gap (3-11) BUN (7-18) mg/dl Creatinine (0.6-1.2) mg/dl Est Cr Clr Drug Dosing ml/min Est GFR ( Amer) Est GFR (Non-Af Amer) BUN/Creatinine Ratio (10-20) Glucose (70-99) mg/dl Calcium (8.5-10.1) mg/dl Magnesium (1.8-2.4) mg/dl Troponin I (0-0.045) ng/ml NT-Pro-B Natriuret Pep (0-1800) pg/ml Lipase (73-393) U/L COVID-19 Eval Order CovFluRsv at [facility] SARS-CoV-2 (PCR) NEGATIVE (Negative) Influenza Type A (PCR) Negative (Neg) Influ A Molecular Assay Cancelled Influenza Type B (PCR) Negative (Neg) Influ B Molecular Assay Cancelled RSV (RT-PCR) Negative (Neg) Imaging Data Radiologist's Impression: Chest CTA 01/29/21 11:31 CT ANGIOGRAM OF THE CHEST CLINICAL HISTORY: Atypical chest pain. Dyspnea. COMPARISON STUDY: Chest x-ray dated 01/29/2021. TECHNIQUE: Following the IV administration of 120 cc of Optiray 320, CT angiogram of the chest was performed from the upper abdomen to the thoracic inlet utilizing the pulmonary embolus protocol. Images are reviewed in the axial, sagittal, and coronal planes. 3-D MIPS images are created and assessed. IV contrast was administered without complication. A dose lowering technique wa s utilized adhering to the principles of ALARA. CT DOSE: 654.16 mGy.cm FINDINGS: Thyroid: Normal in size and heterogeneous in attenuation. Thoracic aorta: There is atherosclerotic calcification of the thoracic aorta, which is normal in caliber and demonstrates standard 3-vessel arch anatomy. No dissection is seen. Pulmonary vasculature: The pulmonary trunk is normal in caliber. There are no filling defects identified in main, lobar, or segmental pulmonary branches to suggest pulmonary embolus. Evaluation of the peripheral branches is degraded by motion artifact. Heart: The patient is status post midline sternotomy. The heart is enlarged and without pericardial effusion. The coronary arteries, aortic valve leaflets, and mitral annulus are densely calcified. Lungs and pleural spaces: Evaluation of the lung parenchyma is degraded by motion artifact. Diffuse intralobular septal thickening is seen throughout both lungs with associated groundglass change. There are moderate pleural effusions with associated atelectasis. There are scattered calcified granulomas. Mediastinum: There is no mediastinal lymphadenopathy. Cassi: Clear. Axillae: There is no axillary lymphadenopathy. Upper abdomen: Calcified gallstones and/or gallbladder wall calcifications are partially imaged. A small hiatal hernia is noted. Partially visualized upper abdominal viscera is otherwise within normal limits. Skeletal structures: The skeletal structures are osteopenic. Degenerative change is noted in the shoulders and thoracic spine. No lytic or blastic bony lesions are seen. IMPRESSION: 1. There is no evidence of pulmonary embolus in the main, lobar, or segmental pulmonary arteries. 2. Cardiomegaly with evidence of congestive failure. 3. Diffuse groundglass change likely represents pulmonary edema. Correlate clinically for evidence of a superimposed infectious/inflammatory pneumonitis. 4. Moderate pleural effusions. 5. Calcified gallstones and/or gallbladder wall calcifications are partially visualized. This could be further assessed with a right upper quadrant ultrasound if clinically warranted. 6. Additional findings as above. ACT 112: Negative or not required by law. Electronically signed by: Ricky Hammer M.D. 01/29/2021 1:43 PM Chest X-Ray 01/29/21 11:31 XR chest 1V portable CLINICAL HISTORY: Chest pain. COMPARISON STUDY: No previous studies for comparison. FINDINGS: There are median sternotomy wires. No pneumothorax is noted. There may be trace bilateral pleural effusions. Lung volumes are diminished. Interstitial thickening is noted. There is suspected mild bilateral airspace opacities. There is moderate cardiomegaly. Right hilar prominence is noted. IMPRESSION: 1. Interstitial thickening and suspected bilateral airspace opacities. The findings may reflect pulmonary edema or an infectious process. Radiographic follow-up is recommended. 2. Possible trace bilateral pleural effusions. 3. Low lung volumes. 4. Cardiomegaly. 5. Right hilar prominence, likely due to pulmonary vessels. However, this should be assessed on follow-up chest radiographs. ACT 112: Negative or not required by law. Electronically signed by: Chiki Jaime M.D. 01/29/2021 12:04 PM ECG Data Indication: + SOB/dyspnea Rate (beats per minute): 84 Rhythm: + normal sinus ECG Intervals/blocks: + Normal QRS, + Normal VA and + Normal QT-c ECG ST segments: + Normal ST segments MDM Narrative 1128: The patient was evaluated in room B7. A complete history and physical exam was performed Cardiac monitoring: An order was placed for continuous cardiac monitoring. The monitor shows a rate of 80 with sinus rhythm Patient was found to be hypoxic on room air on arrival in the emergency department. Patient is placed on 2 L nasal cannula supplemental oxygen which improved the patient's oxygen saturation. 1410: Vital signs stable on supplemental oxygen. Labs show an elevated proBNP of 6993. Chest x-ray does show fluid overload and cardiomegaly on chest x-ray. Patient be given Lasix 40 mg IV push [facility] will be notified. Impression & Plan Hypoxia, CHF (congestive heart failure) Discharge Plan Visit Data Chief Complaint: Shortness of Breath/Dyspnea Stated Complaint: SOB, CHEST PAIN ED Provider: Ricky Enriquez Discharge Problem: Hypoxia, CHF (congestive heart failure) Patient Disposition: Admitted As Inpatient Discharge Instructions Interventions: ED Discharge Assessment Last Done: 01/29/21 17:50 Discharge Problem: CHF (congestive heart failure) Qualifiers: Heart failure type: unspecified Heart failure chronicity: unspecified Qualified Code(s): I50.9 - Heart failure, unspecified
[2021-01-29] MEDS ORDERED: FUROSEMIDE 40 MG in SYRINGE 0 ML IV ONE (21:00)
[2021-01-29] MEDS ORDERED: FUROSEMIDE 40 MG/4 ML VIAL IV ONE (21:00)
[2021-01-29] MEDS: ENOXAPARIN INJ 40 MG/0.4 ML SYR SQ SCH (22:33)
[2021-01-29] MEDS: METOPROLOL TARTRATE 25 MG TAB PO SCH (22:34)
[2021-01-30 07:18] LABS: Basophils # (auto) 0.01 K/uL (0-0.2); Basophils % (auto) 0.1 %; Hematocrit (blood only) 34.9 % (37-47); Hemoglobin 11.4 g/dL (12.0-16.0); Immature Granulocytes # (auto) 0.01 K/uL (0.00-0.02); Immature Granulocytes % (auto) 0.1 %; Lymphocytes # (auto) 1.17 K/uL (1.2-3.4); Lymphocytes % (auto) 17.2 %; Mean Corpuscular Hemoglobin 32.2 pg (25-34); Mean Corpuscular Hgb Conc 32.7 g/dL (32-36); Mean Corpuscular Volume 98.6 fL (80-100); Mean Platelet Volume 9.2 fL (7.4-10.4); Monocytes # (auto) 0.56 K/uL (0.11-0.59); Monocytes % (auto) 8.2 %; Neutrophils # (auto) 5.04 K/uL (1.4-6.5); Neutrophils % (auto) 74.4 %; Platelet Count 190 K/uL (130-400); RDW Coefficient of Variation 15.2 % (11.5-14.5); RDW Standard Deviation 54.5 fL (36.4-46.3); Red Blood Count 3.54 M/uL (4.2-5.4); White Blood Count 6.79 K/uL (4.8-10.8)
[2021-01-30 07:46] LABS: BUN Creatinine Ratio 24.2 (10-20); Calcium 8.5 mg/dl (8.5-10.1); Creatinine Clr Calc Pharmacy 60.8 ml/min; Est GFR (African American) 76.1; Est GFR (Non-African American) 65.6; Magnesium 2.2 mg/dl (1.8-2.4); Potassium 3.5 mmol/L (3.5-5.1)
[2021-01-30] MEDS: ATORVASTATIN 40 MG TAB PO SCH (08:42)
[2021-01-30] MEDS: METOPROLOL TARTRATE 25 MG TAB PO SCH (08:42)
[2021-01-30] MEDS: ASPIRIN 325 MG ECTAB PO SCH (08:42)
[2021-01-30] MEDS: ZINC SULFATE 220 MG CAPSULE PO SCH (08:42)
[2021-01-30] MEDS: CHOLECALCIFEROL 1,000 UNITS 25 MCG TAB PO SCH (08:42)
[2021-01-30] MEDS ORDERED: NON-FORMULARY MEDICATION (Coenzyme Q10 100 mg capsule) PO SCH (09:00)
--- NOTE | 2021-01-30 09:22 | Cardiology Consultation ---
Date of Consultation January 30, 2021 Assessment & Plan (1) Aortic stenosis, severe: Mrs. De Luna is a 80 year old female with a history of Hypertension, Hypercholesterolemia, Aortic Valve Disease s/p Bioprosthetic AVR 2008, Arthritis, Spinal Stenosis, and LV Diastolic Dysfunction who was admitted on 01/29/21 with Acute Diastolic CHF secondary to Severely Narrowed Bioprosthetic Aortic Valve, LVH, and Diastolic Dysfunction. She presented to [facility] ER on 01/29/21 after presenting with SOB/STOUT which began late last year and has gradually worsened over time. Over the past week her SOB/STOUT has gotten much worse -- to the point that she could only climb up 3 stairs and then would need to stop to catch her breath. She has also had orthopnea and PND. Within the past 3 days she has developed intermittent burning chest pain that appears to be pleuritic and/or related to the increased work of breathing -- this does not radiate, is not exertional, and is without any associated symptoms. She specifically denies any associated nausea, vomiting, or diaphoresis. Her Pro-BNP on admission was elevated at 6993 pg/ml. CXR showed pulmonary edema, bilateral pleural effusions, and cardiomegaly. CTA Chest showed bilateral pleural effusions, and pulmonary edema consistent with CHF. Echocardiogram 01/30/21 shows normal LV systolic function with normal wall motion, LVH, bioprosthetic AVR is severely narrowed (SILVIO 0.38 cm2) with a velocity > 5 meters/sec and a peak gradient 100 mmHg, and mild to moderate mitral regurgitation. Patient has responded to IV Lasix with a negative fluid balance 3510 mL, and she is much less SOB today. We had a long discussion today regarding her echocardiographic findings at length, and we discussed how valvular heart disease contributes to the development of heart failure. Patient verbalized understanding of these discussions. Recommend the followin. Increase Lopressor to 50 mg b.i.d.. 2. She received IV Lasix 20 mg today x 1 dose -- she continues to diurese. Consider discharging her on Dyazide 37.5-25 mg every other day. 3. Maintain a low sodium diet. 4. Monitor daily body weights. 5. Daily BMP and serum Mg level. 6. Refer patient back to [facility] for further evaluation and treatment. She can be seen there as an outpatient. (2) Acute diastolic CHF (congestive heart failure): -- As outlined above. (3) History of aortic valve replacement: Bioprosthetic AVR was performed by Dr. Quintero in 2008. -- Calculated aortic valve area on Echocardiogram 01/30/21 is 0.38 cm2, with a velocity > 5 meters/sec, and a peak gradient of 100 mmHg. (4) HTN (hypertension): -- Blood pressures have been elevated earlier in this hospitalization, however with medication changes and diuretic -- her blood pressures have improved. -- Increase Lopressor to 50 mg b.i.d. to treat both diastolic CHF and hypertension. -- At discharge consider starting her on Dyazide 37.5-25 mg every other day, although diuretics should be used with caution due to her severe aortic stenosis. (5) Hypercholesterolemia: -- Continue Atorvastatin 80 mg daily. History of Present Illness Reason for Consultation: -- CHF. Requesting Physician: Theresa Butterfield MD Attending Physician: Gilberto Carney MD History of Present Illness Mrs. De Luna is a 80 year old female with a history of Hypertension, Hypercholesterolemia, Aortic Valve Disease s/p Bioprosthetic AVR 2008, Arthritis, Spinal Stenosis, and LV Diastolic Dysfunction who presented to [facility] on 01/29/21 complaining of SOB/STOUT which began late last year and has gradually worsened over time. Over the past week her SOB/STOUT has gotten much worse -- to the point that she could only climb up 3 stairs and then would need to stop to catch her breath. She has also had orthopnea and PND. Within the past 3 days she has developed intermittent burning chest pain that appears to be pleuritic or related to the increased work of breathing -- this does not radiate, and is without any associated symptoms. She specifically denies any associated nausea, vomiting, or diaphoresis. Patient states that she has lost about 20 pounds over the past several months and has not had a recent body or fluid weight gain. She denies any exertional chest pain, heaviness, tightness, or pressure. She denies any exertional neck, back, jaw, or arm pain. She denies any syncope or near syncope. Patient did eat ham this past Thursday at [facility]. Her Pro-BNP on admission was elevated at 6993 pg/ml. CXR showed pulmonary edema, bilateral pleural effusions, and cardiomegaly. CTA Chest showed bilateral pleural effusions, and pulmonary edema consistent with CHF. Allergies Allergy/AdvReac Type Severity Reaction Status Date / Time No Known Allergies Allergy Unknown PT NOT Verified 01/29/21 14:02 ALLERGIC TO OXYCODONE-HAD BEFORE WITHOUT PROB Home Medications Medication Instructions Recorded Confirmed Type aspirin 325 mg tablet 325 mg PO DAILY tab 05/24/19 01/29/21 History cholecalciferol (vitamin D3) 25 1,000 units PO DAILY cap 05/24/19 01/29/21 History mcg (1,000 unit) capsule coenzyme Q10 100 mg capsule 100 mg PO DAILY cap 05/24/19 01/29/21 History cranberry 400 mg capsule 400 mg PO DAILY 05/24/19 01/29/21 History multivitamin 1 tab PO DAILY 05/24/19 01/29/21 History potassium 99 mg tablet 99 mg PO DAILY tab 06/06/19 01/29/21 History vitamin E acetate 1 tab PO DAILY 06/06/20 01/29/21 History zinc sulfate 1 tab PO DAILY 06/06/20 01/29/21 History atorvastatin 80 mg tablet 80 mg PO DAILY #90 tab 08/28/20 01/29/21 Rx celecoxib 200 mg capsule 200 mg PO DAILY #90 cap 01/08/21 01/29/21 Rx metoprolol tartrate 25 mg tablet 25 mg PO BID #180 tab 01/28/21 01/29/21 Rx Patient History Medical History (Updated 01/30/21 @ 10:07 by Cuauhtemoc Abdi PA-C) Arthritis HLD (hyperlipidemia) HTN (hypertension) Hypercholesterolemia Spinal stenosis Surgical History (Updated 01/29/21 @ 15:29 by MEGAN Blancas) History of aortic valve [place] 2008, [place] [facility] [place] of [place] surgery History of cataract surgery History of total knee arthroplasty B/L, 2004, Dr Tavares History of tubal ligation Hx of repair of rotator cuff right, 1992, Dr Tavares Family History Mother Coronary heart disease Father Malignant neoplasm of pancreas Denies family history of Ovarian cancer Prostate cancer Myocardial infarction Breast cancer Colorectal cancer Social History (Reviewed 01/29/21 @ 15:19 by BIBI Blancas Smoking Status: Former smoker Tobacco Type: Cigarettes Age Started Using Tobacco: 15; Age Quit Using Tobacco: 52; packs per day: 1; Years Smoked: 37; Cigarettes Per Day: 20; Number of Years Since Quit: 27; Second Hand Exposure: No; Do You Dip or Chew Tobacco: No; Hx Alcohol Use: No Hx Substance Use: No Preferred Language: Portuguese Communication Ability: Effective Visual Impairment: No Limitations Hearing Ability: Normal Lead Assistant Manager Required: No Beliefs That Will Affect Care: None marital status: Current Living Situation: Significant Other current occupational status: retired Feels Safe at Home: Yes Safety Concerns: Feels Safe At This Time Childhood Exposure to Second-Hand Smoke: No Dental Care, Regularly: No Physical Activity Frequency: Does not Exercise Seatbelt Use: always Sunscreen Use: Yes Assistive Devices: Denture - Lower and Glasses Review of Systems Review of Systems: All systems reviewed & are unremarkable except as noted in Subjective Physical Exam Physical Exam: GENERAL: Patient in no acute distress. HEENT: Head is atraumatic, normocephalic. EOM's intact. Facies symmetric. No perioral cyanosis. NECK: No JVD. JVP is elevated. Carotid upstrokes are + 2 bilaterally with a transmitted murmur vs bruits. CHEST/LUNGS: Absent breath sounds in bilateral bases, scattered crackles in lower lung taylor. CVS: S1 and S2 are regular with a grade 3-4/6 basal systolic murmur heard best at the right 2nd ICS that radiates to the LSB, suprasternal notch and bilateral carotids. No diastolic murmurs. No gallops or rubs. PMI is nonpalpable. No lifts, heaves, or thrills. No abdominal aortic or renal bruits. Median sternotomy scar is present. ABDOMINAL EXAM: Bowel sounds are present. No masses, organomegaly, or tenderness. EXTREMITIES: No clubbing or cyanosis. Trace bipedal and ankle edema. Intact radial pulses bilaterally. NEUROLOGIC EXAM: Patient is awake, alert, and oriented. Pleasant and cooperative. Answers questions appropriately. Speech is clear. Normal movement in all 4 extremities. Gait pattern was not assessed. ECHOCARDIOGRAM 01/30/21: -- Normal LV systolic function, normal wall motion. -- LVH. -- Bioprosthetic AVR is severely narrowed, velocity > 5 meters/sec, peak gradient 100 mmHg. -- Mild to moderate mitral regurgitation. EKG 01/29/21: -- NSR with possible left atrial enlargement, ST and T wave abnormality, consider lateral ischemia. -- Abnormal EKG. -- When compared to 02/25/05 tracing: QRS duration increased, QT lengthened, non- specific T wave abnormality worse in inferior leads, T wave inversion in lateral leads. Results & Data ([facility]) Vital Signs (Past 12 Hours) Vital Signs Temp Pulse Pulse Resp BP Pulse Ox 01/30/21 07:00 36.9 C 77 20 139/60 98 01/30/21 03:36 36.7 C 79 15 106/68 98 01/30/21 00:30 36.4 C L 67 20 117/69 98 01/29/21 22:30 83 Laboratory Results Laboratory Results - last 24 hr 01/29/21 01/29/21 01/29/21 11:54 11:54 11:54 WBC 5.54 RBC 3.69 L Hgb 12.3 Hct 36.6 L MCV 99.2 MCH 33.3 MCHC 33.6 RDW Std Deviation 54.7 H RDW Coeff of Lynnette 15.3 H Plt Count 211 MPV 9.5 Immature Gran % (Auto) 0.2 Neut % (Auto) 73.3 Lymph % (Auto) 17.9 [place] % (Auto) 7.4 Eos % (Auto) 0.7 Baso % (Auto) 0.5 Neut # (Auto) 4.06 Lymph # (Auto) 0.99 L [place] # (Auto) 0.41 Eos # (Auto) 0.04 Baso # (Auto) 0.03 Immature Gran # (Auto) 0.01 PT 10.3 INR 1.0 APTT 30.7 PTT Ratio 1.2 Sodium 140 Potassium 4.1 Chloride 108 H Carbon Dioxide 29 Anion Gap 3.0 BUN 17 Creatinine 0.91 Est Cr Clr Drug Dosing 57.4 Est GFR ( Amer) 70.0 Est GFR (Non-Af Amer) 60.4 BUN/Creatinine Ratio 18.9 Glucose 116 H Calcium 9.0 Magnesium 2.3 Troponin I 0.032 NT-Pro-B Natriuret Pep 6993 H Triglycerides Cholesterol LDL Cholesterol, Calc VLDL Cholesterol, Calc HDL Cholesterol Cholesterol/HDL Ratio Lipase 114 COVID-19 Eval Order SARS-CoV-2 (PCR) Influenza Type A (PCR) Influ A Molecular Assay Influenza Type B (PCR) Influ B Molecular Assay RSV (RT-PCR) 01/29/21 01/29/21 01/29/21 11:54 11:58 11:58 WBC RBC Hgb Hct MCV MCH MCHC RDW Std Deviation RDW Coeff of Lynnette Plt Count MPV Immature Gran % (Auto) Neut % (Auto) Lymph % (Auto) [place] % (Auto) Eos % (Auto) Baso % (Auto) Neut # (Auto) Lymph # (Auto) [place] # (Auto) Eos # (Auto) Baso # (Auto) Immature Gran # (Auto) PT INR APTT PTT Ratio Sodium Potassium Chloride Carbon Dioxide Anion Gap BUN Creatinine Est Cr Clr Drug Dosing Est GFR ( Amer) Est GFR (Non-Af Amer) BUN/Creatinine Ratio Glucose Calcium Magnesium Troponin I NT-Pro-B Natriuret Pep Triglycerides Cholesterol LDL Cholesterol, Calc VLDL Cholesterol, Calc HDL Cholesterol Cholesterol/HDL Ratio Lipase COVID-19 Eval Order CovFluRsv at [facility] SARS-CoV-2 (PCR) NEGATIVE Influenza Type A (PCR) Negative Influ A Molecular Assay Cancelled Influenza Type B (PCR) Negative Influ B Molecular Assay Cancelled RSV (RT-PCR) Negative 01/29/21 01/30/21 01/30/21 18:49 06:37 06:37 WBC 6.79 RBC 3.54 L Hgb 11.4 L Hct 34.9 L MCV 98.6 MCH 32.2 MCHC 32.7 RDW Std Deviation 54.5 H RDW Coeff of Lynnette 15.2 H Plt Count 190 MPV 9.2 Immature Gran % (Auto) 0.1 Neut % (Auto) 74.4 Lymph % (Auto) 17.2 [place] % (Auto) 8.2 Eos % (Auto) 0.0 Baso % (Auto) 0.1 Neut # (Auto) 5.04 Lymph # (Auto) 1.17 L [place] # (Auto) 0.56 Eos # (Auto) 0.00 Baso # (Auto) 0.01 Immature Gran # (Auto) 0.01 PT INR APTT PTT Ratio Sodium 139 Potassium 3.5 Chloride 103 Carbon Dioxide 30 Anion Gap 6.0 BUN 21 H Creatinine 0.85 Est Cr Clr Drug Dosing 60.8 Est GFR ( Amer) 76.1 Est GFR (Non-Af Amer) 65.6 BUN/Creatinine Ratio 24.2 H Glucose 107 H Calcium 8.5 Magnesium 2.2 Troponin I 0.039 NT-Pro-B Natriuret Pep Triglycerides 72 Cholesterol 119 LDL Cholesterol, Calc 60 VLDL Cholesterol, Calc 14 HDL Cholesterol 45 Cholesterol/HDL Ratio 3 Lipase COVID-19 Eval Order SARS-CoV-2 (PCR) Influenza Type A (PCR) Influ A Molecular Assay Influenza Type B (PCR) Influ B Molecular Assay RSV (RT-PCR) Diagnostic Findings CTA CHEST 01/29/21: 1. There is no evidence of pulmonary embolus in the main, lobar, or segmental pulmonary arteries. 2. Cardiomegaly with evidence of congestive failure. 3. Diffuse ground glass change likely represents pulmonary edema. Correlate clinically for evidence of a superimposed infectious/inflammatory pneumonitis. 4. Moderate pleural effusions. 5. Calcified gallstones and/or gallbladder wall calcifications are partially visualized. This could be further assessed with a right upper quadrant ultrasound if clinically warranted. CXR 01/29/21: 1. Interstitial thickening and suspected bilateral airspace opacities. The findings may reflect pulmonary edema or an infectious process. Radiographic follow-up is recommended. 2. Possible trace bilateral pleural effusions. 3. Low lung volumes. 4. Cardiomegaly. 5. Right hilar prominence, likely due to pulmonary vessels. However, this should be assessed on follow-up chest radiographs. Medications Administered Medications aspirin 325 mg tablet 325 mg PO DAILY tab 05/24/19 [History Confirmed 01/29/21] cholecalciferol (vitamin D3) 25 mcg (1,000 unit) capsule 1,000 units PO DAILY cap 05/24/19 [History Confirmed 01/29/21] coenzyme Q10 100 mg capsule 100 mg PO DAILY cap 05/24/19 [History Confirmed 01/29/21] cranberry 400 mg capsule 400 mg PO DAILY 05/24/19 [History Confirmed 01/29/21] multivitamin 1 tab PO DAILY 05/24/19 [History Confirmed 01/29/21] potassium 99 mg tablet 99 mg PO DAILY tab 06/06/19 [History Confirmed 01/29/21] vitamin E acetate 1 tab PO DAILY 06/06/20 [History Confirmed 01/29/21] zinc sulfate 1 tab PO DAILY 06/06/20 [History Confirmed 01/29/21] atorvastatin 80 mg tablet 80 mg PO DAILY #90 tab 08/28/20 [Rx Confirmed 01/29/21] celecoxib 200 mg capsule 200 mg PO DAILY #90 cap 01/08/21 [Rx Confirmed 01/29/21] metoprolol tartrate 25 mg tablet 25 mg PO BID #180 tab 01/28/21 [Rx Confirmed 01/29/21] Home Medications Acetaminophen (Acetaminophen 325 Mg Tab) 650 mg PO Q4H PRN PRN Reason: Pain or Fever Stop: 02/28/21 17:48 Aspirin (Aspirin 325 Mg Ectab) 325 mg PO DAILY WADE Stop: 03/01/21 08:59 Last Admin: 01/30/21 08:42 Dose: 325 mg Documented by: Atorvastatin Calcium (Atorvastatin 40 Mg Tab) 80 mg PO DAILY [facility] Stop: 03/01/21 08:59 Last Admin: 01/30/21 08:42 Dose: 80 mg Documented by: Enoxaparin Sodium (Enoxaparin Inj 40 Mg/0.4 Ml Syr) 40 mg SQ Q24H [facility] Stop: 02/28/21 18:59 Last Admin: 01/29/21 22:33 Dose: 40 mg Documented by: Furosemide 20 mg/ Syringe 2 mls @ 4 mls/min IV 0945 ONE Stop: 01/30/21 09:46 Metoprolol Tartrate (Metoprolol Tartrate 25 Mg Tab) 25 mg PO BID [facility] Stop: 02/28/21 20:59 Last Admin: 01/30/21 08:42 Dose: 25 mg Documented by: Ondansetron HCl (Ondansetron Inj 2 Mg/Ml 2 Ml Vial) 4 mg IV Q6H PRN PRN Reason: Nausea Stop: 02/28/21 17:48 Polyethylene Glycol (Polyethylene (Miralax) 17 Gm Pack) 17 gm PO DAILY PRN PRN Reason: Constipation Stop: 02/28/21 17:48 Vitamin D (Cholecalciferol 1,000 Units 25 Mcg Tab) 1,000 units PO DAILY [facility] Stop: 03/01/21 08:59 Last Admin: 01/30/21 08:42 Dose: 1,000 units Documented by: Zinc Sulfate (Zinc Sulfate 220 Mg Capsule) 220 mg PO DAILY WADE Stop: 03/01/21 08:59 Last Admin: 01/30/21 08:42 Dose: 220 mg Documented by: PG Care Time/CCT Total # of Minutes Spent Total Time Spent with Patient: Total time spent is greater than 50% in coordination of care (as documented) at patient's floor/unit and/or counseling patient:65 Coding Level of Care Code 27279 Initial Inpt Care Lvl 3 Diagnoses Aortic stenosis, severe I35.0 Acute diastolic CHF (congestive heart failure) I50.31 History of aortic valve replacement Z95.2 HTN (hypertension) I10 Hypercholesterolemia E78.00
[2021-01-30] MEDS ORDERED: FUROSEMIDE 20 MG in SYRINGE 0 ML IV ONE (09:45)
--- NOTE | 2021-01-30 18:21 | Hospitalist Progress Note ---
Date of Service January 30, 2021 Assessment & Plan (1) CHF (congestive heart failure): Patient with acute on chronic diastolic congestive heart failure, presented with increasing shortness of breath, PND, and orthopnea With elevated proBNP at 6993, chest x-ray with pulmonary edema and bilateral pleural effusions and cardiomegaly; CTA chest showed bilateral pleural effusions and pulmonary edema. Now significantly improved after IV diuresis, is net -3.5 L Echocardiogram with preserved EF but with development of severe aortic stenosis of her bioprosthetic valve, as well as mild/moderate MR -Gave 1 dose of IV Lasix this morning -We will hold off on further IV diuretics for now but may give another dose in the morning if needed- do not want to drop her pre-load too aggressively - Continue her Metoprolol and increase to 50 mg p.o. twice daily - Pulmonary congestion evident on CT scan and CXR- with likely transudative pleural effusions- diurese, hypoxia has now resolved Cardiology suggest sending home on Dyazide every other day upon discharge (2) Hypoxia: With acute respiratory failure with hypoxia upon admission Pulse ox was 89% and required 2 L She is now weaned off oxygen with diuresis (3) Aortic stenosis, severe: Echocardiogram on 01/30 shows severe aortic stenosis of the bioprosthetic aortic valve Symptom management as above, increasing beta-daniel, diuresis cautiously Will need referral for valve replacement as an outpatient as per cardiology Appreciate cardiology consultation (4) History of aortic valve replacement: As above - Cardiology consulted to assist with medical evaluation (5) HTN (hypertension): Well controlled - Continue metoprolol but increase to 50 mg p.o. twice daily - Continue risk reduction with ASA, statin (6) Arthritis: Chronic with bilateral knees - Hold NSAIDs while in house - Tylenol 650mg Q4 - Can add on lidocaine patch or cream if needed for discomfort (7) Pleural effusion: Likely transudative with history and physical exam - no acute need for intervention - diurese will be slow but should decrease - follow clinically (8) Hypercholesterolemia: Continue atorvastatin, aspirin (9) CKD (chronic kidney disease) stage 2, GFR 60-89 ml/min: -Avoid nephrotoxins -renally dose meds when appropriate -follow BMP Creatinine is at baseline (10) DVT prophylaxis: Lovenox SQ Disposition-continued stay, but possible discharge to home tomorrow if continues to improve Admission and Anticipated Discharge Date Admission Date: January 29, 2021 Results & Data Results & Data ([facility]) Vital Signs (Past 12 Hours) Vital Signs Temp Pulse Pulse Resp BP Pulse Ox 01/30/21 16:36 36.7 C 78 19 117/75 94 01/30/21 16:00 74 01/30/21 12:00 36.5 C 74 18 132/74 93 01/30/21 10:19 69 01/30/21 07:00 36.9 C 77 20 139/60 98 PG Care Time/CCT Total # of Minutes Spent Total Time Spent with Patient: Total time spent is greater than 50% in coordination of care (as documented) at patient's floor/unit and/or counseling patient: Coding Level of Care Code 22414 Subseq Hosp Care Lvl 3 Diagnoses CHF (congestive heart failure) I50.9 Heart failure chronicity: unspecified Heart failure type: unspecified Hypoxia R09.02 Aortic stenosis, severe I35.0 History of aortic valve replacement Z95.2 HTN (hypertension) I10 Hypertension type: essential hypertension Arthritis M19.90 Pleural effusion J90 Hypercholesterolemia E78.00 CKD (chronic kidney disease) stage 2, GFR 60-89 ml/min N18.2 DVT prophylaxis Z29.9 (1) CHF (congestive heart failure) Heart failure chronicity: unspecified Heart failure type: unspecified Qualified Code(s): I50.9 - Heart failure, unspecified (2) HTN (hypertension) Hypertension type: essential hypertension Qualified Code(s): I10 - Essential (primary) hypertension
[2021-01-30] MEDS: ENOXAPARIN INJ 40 MG/0.4 ML SYR SQ SCH (19:35)
[2021-01-30] MEDS: METOPROLOL TARTRATE 50 MG TAB PO SCH (20:09)
[2021-01-31 05:56] LABS: Basophils # (auto) 0.02 K/uL (0-0.2); Basophils % (auto) 0.3 %; Eosinophils # (auto) 0.06 K/uL (0-0.5); Eosinophils % (auto) 0.8 %; Hematocrit (blood only) 35.4 % (37-47); Hemoglobin 11.6 g/dL (12.0-16.0); Immature Granulocytes # (auto) 0.01 K/uL (0.00-0.02); Immature Granulocytes % (auto) 0.1 %; Lymphocytes # (auto) 1.99 K/uL (1.2-3.4); Lymphocytes % (auto) 27.8 %; Mean Corpuscular Hemoglobin 32.3 pg (25-34); Mean Corpuscular Hgb Conc 32.8 g/dL (32-36); Mean Corpuscular Volume 98.6 fL (80-100); Mean Platelet Volume 9.3 fL (7.4-10.4); Monocytes # (auto) 0.59 K/uL (0.11-0.59); Monocytes % (auto) 8.3 %; Neutrophils # (auto) 4.48 K/uL (1.4-6.5); Neutrophils % (auto) 62.7 %; Platelet Count 187 K/uL (130-400); RDW Coefficient of Variation 15.1 % (11.5-14.5); RDW Standard Deviation 54.5 fL (36.4-46.3); Red Blood Count 3.59 M/uL (4.2-5.4); White Blood Count 7.15 K/uL (4.8-10.8)
[2021-01-31 06:26] LABS: BUN Creatinine Ratio 31.5 (10-20); Calcium 8.3 mg/dl (8.5-10.1); Creatinine Clr Calc Pharmacy 60.6 ml/min; Est GFR (Non-African American) 64.7; Magnesium 2.5 mg/dl (1.8-2.4); Potassium 3.5 mmol/L (3.5-5.1)
[2021-01-31] MEDS: CHOLECALCIFEROL 1,000 UNITS 25 MCG TAB PO SCH (09:15)
[2021-01-31] MEDS: ASPIRIN 325 MG ECTAB PO SCH (09:15)
[2021-01-31] MEDS: METOPROLOL TARTRATE 50 MG TAB PO SCH (09:16)
[2021-01-31] MEDS: ATORVASTATIN 40 MG TAB PO SCH (09:16)
[2021-01-31] MEDS: ZINC SULFATE 220 MG CAPSULE PO SCH (09:16)
[2021-01-31] MEDS ORDERED: TRIAMTERENE/HCTZ 37.5/25MG CAP PO SCH (09:30)
--- NOTE | 2021-01-31 10:55 | Discharge Summary ---
Date of Service January 31, 2021 Admission HPI Per Admitting Provider 80 YOF with past medical history of Arthritis, bilateral knee replacements, Aortic-bioprosthetic valve replacement (2008), mild mitral regurge, HTN, HLD, obesity. Patient came to the emergency room for 3 days of increased dyspnea and chest pain. The pain is in the center of her chest and is a burning pain, not a pain that she normal gets with her reflex. The pain would come and go, she does NOT notice that it gets worse with activity. The pain does not radiate and maybe associated with her shortness of breath. Denies any nausea vomiting. Her dyspnea is significantly worse, she gets short of breath walking ~25-30 feet, she normally has 1 pillow orthopnea and used 3 pillows last night and unable to sleep much, she also has 12 steps at home to go up and has to stop about every 3 steps to take a break. She thinks that possibly the dyspnea has been going on a little longer but is unsure. She is followed by Dr. Carney for cardiology was last seen in May and had an ECHO done at that time (EF 60-65%, normal prosthetic valve, mild MR diastolic dysfunction grade II). In the ER the patient had a CT scan of the chest which was negative for PE, CXR, ECG, elevated BNP. Was given 40 mg IV Lasix and Decadron 6mg IV. Hospitalist team was notified for admission. Patient will be admitted to obtain an ECHO to evaluate her heart valve and function, diurese, and monitor telemetry. Principal Diagnosis Acute on chronic diastolic CHF, Severe aortic stenosis Discharge Exam Constitutional WD/WN, vitals as above Eyes + anicteric sclerae Neck trachea midline, no thyromegaly Respiratory normal respiratory effort, lungs clear to auscultation Cardiovascular Rate/Rhythm: regular rate and regular rhythm Heart Sounds: + murmur (3/6 ALONSO at RUSB) Extremities: + edema (trace pitting edema R> L leg) Chest (Breasts) Chest: normal inspection of chest Gastrointestinal (Abdomen) normal bowel sounds, soft, nontender, no hepatosplenomegaly Musculoskeletal Extremities: extremities normal to inspection; no cyanosis and no clubbing Skin no rashes, warm and dry Neurologic moves all extremities and awake; no focal motor deficits Psychiatric A+Ox3, euthymic affect Lymphatic no lymphedema Discharge Data Allergies Allergy/AdvReac Type Severity Reaction Status Date / Time No Known Allergies Allergy Unknown PT NOT Verified 01/29/21 14:02 ALLERGIC TO OXYCODONE-HAD BEFORE WITHOUT PROB Consultations 01/29/21 14:09 ED Decision to Admit Stat 01/29/21 17:49 Consult Cardiology Routine Ordered Studies 01/29/21 11:31 CT angio chest PE protocol Stat ECHO CXR Hospital Course (1) CHF (congestive heart failure): Patient with acute on chronic diastolic congestive heart failure, presented with increasing shortness of breath, PND, and orthopnea With elevated proBNP at 6993, chest x-ray with pulmonary edema and bilateral pleural effusions and cardiomegaly; CTA chest showed bilateral pleural effusions and pulmonary edema. Now significantly improved after IV diuresis, is net -4 L Echocardiogram with preserved EF but with development of severe aortic stenosis of her bioprosthetic valve, as well as mild/moderate MR -dc to home on Dyazide every other day as per Cardio recommendation CHF instructions given - do not want to drop her pre-load too aggressively - Continue her Metoprolol and increased to 50 mg p.o. twice daily - Pulmonary congestion evident on CT scan and CXR- with likely transudative pleural effusions- diurese, hypoxia has now resolved Cardiology to arrange outpt fu with [facility] for eval for repeat valve replacement (2) Hypoxia: With acute respiratory failure with hypoxia upon admission Pulse ox was 89% and required 2 L She is now weaned off oxygen with diuresis (3) Aortic stenosis, severe: Echocardiogram on 01/30 shows severe aortic stenosis of the bioprosthetic aortic valve Symptom management as above, increasing beta-daniel, diuresis cautiously Will need referral for valve replacement as an outpatient as per cardiology Appreciate cardiology consultation (4) History of aortic valve replacement: As above - Cardiology consulted to assist with medical evaluation (5) HTN (hypertension): Well controlled - Continue metoprolol but increase to 50 mg p.o. twice daily - Continue risk reduction with ASA, statin (6) Arthritis: Chronic with bilateral knees - continue Celebrex (7) Pleural effusion: Likely transudative with history and physical exam diuresed (8) Hypercholesterolemia: Continue atorvastatin, aspirin (9) CKD (chronic kidney disease) stage 2, GFR 60-89 ml/min: -Avoid nephrotoxins -renally dose meds when appropriate -follow BMP as outpt with CHF clinic Creatinine is at baseline (10) DVT prophylaxis: Lovenox SQ Disposition-dc to home Total Time Total Time Spent Total Time Spent (In Minutes): 35 min Total Time Includes: Examination of the Patient, Discharge Planning, Medication Reconciliation and Communication With Other Providers (Dr. Carney) Discharge Plan Discharge Items Patient Disposition: Home - Self-Care Reason For Visit: SOB Discharge Diagnosis: Acute on chronic diastolic CHF, Severe aortic stenosis Condition on Discharge: Fair Activity: As commented below Bathing: No limitations Exercise/Sports: As tolerated Non-emergency contact: Primary Care Provider and Motion Study Technician Call non-emergency contact if: you have any medication questions and your symptoms worsen Follow-up/Referrals: Chester Garcia III, MD [Primary Care Provider] - 02/05/21 9:00 am (Follow up within 1-2 weeks.) Diet: Heart Healthy and Low Sodium (2gm) Addtl Attending Provider Instructions: You were admitted with congestive heart failure secondary to your worsening aortic valve stenosis. Your aortic valve stenosis is now severe and you will need to be evaluated at [facility] for a repeat valve replacement. This will be arranged for you through Dr. Carney's office. You were given diuretics and will continue on Dyazide (a water pill) to be taken every other day. Your metoprolol dose was also increased to 50mg twice a day. Call your Primary Care doctor if any of the following symptoms or problems start or get worse: * Shortness of breath or difficulty breathing * Wake up at night short of breath * Chest pain * Cough * Swelling of your hands, feet, or legs * More fatigued or tired with your normal activity * Palpitations - sudden fast heart beats WEIGHT * Weigh yourself every morning after using the bathroom. * Use the same scale. * Wear the same amount of clothing. * Write your weight down on a chart. * Call your Primary Care doctor if you gain more than 2-3 pounds in 1-2 days. MEDICATIONS * Use this discharge instruction sheet for medication instructions. * Take your medications at the time your doctor ordered. * Do not skip a dose of your medicines. * If you miss a dose of medicine, take it as soon as possible, but DO NOT DOUBLE A DOSE. * Read your medicine information when you get home. * Know all of the side effects of your medicine. If in doubt, ask your pharmacist * Call your Primary Care doctor's office if you have any side effects. * Be sure all of your doctors know what medicine and herbs you take (including cold, flu, and herbal medicine). Take the following with you to your follow-up doctor appointments: * Weight Chart * Medication List * List of questions Do not drink excessive alcohol, beer or wine. Pending Studies at Discharge: No Stand-Alone Forms: My [facility] Medications and DC Order Prescriptions: New triamterene-hydrochlorothiazid 37.5-25 mg Capsule 1 cap PO Q2D Qty: 15 RF: 0 metoprolol tartrate 50 mg Tablet 50 mg PO BID Qty: 60 RF: 0 Continued atorvastatin 80 mg tablet 80 mg PO DAILY Qty: 90 RF: 3 celecoxib 200 mg capsule 200 mg PO DAILY Qty: 90 RF: 3 cranberry 400 mg capsule 400 mg PO DAILY RF: 0 multivitamin [Daily Multi-Vitamin] tablet 1 tab PO DAILY RF: 0 coenzyme Q10 100 mg capsule 100 mg PO DAILY RF: 0 aspirin 325 mg tablet 325 mg PO DAILY RF: 0 cholecalciferol (vitamin D3) 1,000 unit capsule 1,000 units PO DAILY RF: 0 potassium 99 mg tablet 99 mg PO DAILY RF: 0 zinc sulfate 1 tab PO DAILY RF: 0 vitamin E acetate 1 tab PO DAILY RF: 0 Discontinued metoprolol tartrate 25 mg tablet 25 mg PO BID Qty: 180 RF: 3 Discharge Orders: Discharge Order (Routine); Ordered 01/31/21 Ordered By: Theresa Butterfield Admission Data Admit Date/Time: 01/29/21 15:10 Attending Provider: Theresa Butterfield Admit Provider: Branden Ramirez Primary Care Provider: Chester Garcia III Other Providers: Branden Ramirez ; Myron Brown Coding Level of Care Code D/C Day Management >30 mins Diagnoses CHF (congestive heart failure) I50.9 Heart failure chronicity: unspecified Heart failure type: unspecified Hypoxia R09.02 Aortic stenosis, severe I35.0 History of aortic valve replacement Z95.2 HTN (hypertension) I10 Hypertension type: essential hypertension Arthritis M19.90 Pleural effusion J90 Hypercholesterolemia E78.00 CKD (chronic kidney disease) stage 2, GFR 60-89 ml/min N18.2 DVT prophylaxis Z29.9
--- NOTE | 2021-01-31 13:05 | Cardiology Progress Note ---
Date of Service January 31, 2021 Assessment & Plan (1) Aortic stenosis, severe: -severe bioprosthetic valve stenosis on current echocardiogram. -likely the etiology of her CHF presentation. -will arrange a consultation with [facility] surgery [facility]. (2) Acute diastolic CHF (congestive heart failure): -has responded well to intravenous diuretics -diuretic therapy as recommended by Mr. Abdi yesterday. (3) History of aortic valve replacement: -bioprosthetic aortic valve placed in 2008. (4) HTN (hypertension): -improved control on increased dose of metoprolol tartrate. (5) Hypercholesterolemia: -continue atorvastatin. Admission and Anticipated Discharge Date Admission Date: January 29, 2021 Subjective The patient is resting comfortably at the bedside without complaints of chest pain dyspnea. She is anxious for hospital discharge. Physical Exam Physical Exam: In general he is a well-developed well-nourished white female acute distress. HEENT exam is negative. Neck is supple with delayed and prolonged carotid upstrokes. No obvious bruits or transmitted murmurs. Jugular venous pressure is flat at 90. Cardiovascular exam reveals a regular rhythm with a 3/6 crescendo decrescendo systolic murmur heard last at the base. S2 is not audible at the apex. Lungs are clear without rales, rhonchi or wheezes. Abdomen is soft without bruits. Extremities reveal intact radial artery pulses bilaterally. There is trace pretibial edema. Results & Data ([facility]) Vital Signs (Past 12 Hours) Vital Signs Temp Pulse Resp BP Pulse Ox 01/31/21 11:52 36.4 C L 66 18 101/62 91 01/31/21 07:23 36.4 C L 66 18 101/62 91 01/31/21 04:25 36.5 C 72 20 106/63 92 PG Care Time/CCT Total # of Minutes Spent Total Time Spent with Patient: Total time spent is greater than 50% in coordination of care (as documented) at patient's floor/unit and/or counseling patient: Coding Level of Care Code 47613 Subseq Hosp Care Lvl 3 Diagnoses Aortic stenosis, severe I35.0 Acute diastolic CHF (congestive heart failure) I50.31 History of aortic valve replacement Z95.2 HTN (hypertension) I10 Hypercholesterolemia E78.00
== END 2021-01-31 12:45 | disposition home or self-care (01) | DRG 291 ==
LOC: ED 11:20 → EDINP 15:10 → SUATTDRO 15:10 → EDINP 20:17 → 2S 20:35

== ENCOUNTER 2021-03-13 15:31 | Inpatient (IN) ==
--- NOTE | 2021-03-13 17:01 | XRay Report ---
XR chest 1V portable CLINICAL HISTORY: Shortness of breath. COMPARISON STUDY: Chest radiograph March 04, 2021. FINDINGS: Median sternotomy wires are noted. There is cardiomegaly. No pneumothorax is present. Inter stitial thickening consistent with pulmonary edema has progressed. There are moderate left and small right pleural effusions. IMPRESSION: 1. Progression of pulmonary edema since prior exam of March 04, 2021. 2. Moderate left and small right pleural effusions. ACT 112: Negative or not required by law. Electronically signed by: Chiki Jaime M.D. 03/13/2021 4:59 PM
--- NOTE | 2021-03-13 17:08 | Emergency Department Note ---
Impression & Plan Aortic stenosis, severe, Acute exacerbation of CHF (congestive heart failure), Elevated troponin, Elevated brain natriuretic peptide (BNP) level, Hypoxia, Hyponatremia, Renal insufficiency, Hypokalemia ED Provider Note NAME: YUMIKO GUEVARA AGE: 80 SEX: F ARRIVES VIA: Ambulance INFORMANT: Patient, ED PROVIDER(S): Mitch Mak MD CHIEF COMPLAINT: Shortness of breath. PLAN: Disposition: Admit MEDICAL DECISION MAKING: The patient is a pleasant 80-year-old woman with a past medical history of chronic diastolic heart failure, aortic stenosis with severe bioprosthetic disease with [place] [facility] [place] next week for evaluation and additional recommendations for possible TAVR, hypertension who presents to the emergency department with worsening shortness of breath and edema in her lower extremities in the setting of going away for the weekend to [facility] and reports she had worsening shortness of breath throughout the trip and particularly worse today where she could not catch her breath with minimal exertion. She reports she has been weighing herself daily and her weights are down but her legs have become more swollen than they ever are. She reports she maintained a low-sodium diet while she was on her trip but her family kept urging her to drink fluids to stay hydrated. Review of the patient's recent CHF visit on 03/04 document a dry weight of 197 pounds and was noted to be 209 pounds in the clinic. Recommendations for low-sodium diet were reviewed. Her outpatient BNP from that visit was 19,000 increased from prior. Her last echocardiogram showed normal LV size and low normal systolic function with EF of 50-55%. A heart cath on 02/22 2021 showed chronic total occlusion of RCA, 80% mid circumflex lesion and patent LAD with nonobstructive disease. On arrival the patient is mildly dyspneic but no acute distress, afebrile with stable vital signs. Her O2 saturation is 89% on room air and was placed on nasal cannula. She has diminished breath sounds at the bases. She has 2+ bilateral lower extremity pitting edema. There is no discoloration or calf tenderness. EKG demonstrates sinus rhythm with ST abnormalities that are similar morphology to prior without overt ST elevation or depression. X-ray shows progressed pulmonary edema and bilateral pleural effusions. WBC, H/H and platelets within normal limits. Chemistry without metabolic acidosis. Creatinine 1.56 increased from prior with BUN/creatinine>20 suggestive of prerenal etiology suspected to be related to CHF. LFTs are newly elevated from prior though the patient denies any abdominal pain and thus likely related to CHF/hepatic congestion. Troponin is elevated at 0.357 without prior similar elevations likely related to volume overload as BNP >35K uptrending from prior at 19K. COVID-19 PCR was negative. Limited bedside cardiac ultrasound was performed and demonstrates trace-small pericardial effusion as well as dilated LV with suspected mildly reduced EF per MAPSE ~10mm. Moderate-sized bilateral pleural effusions also noted. IV lasix and potassium repletion administered. Patient agrees with plan for admission. Case was discussed with ISAAC Mendoza hospitalist, who will evaluate the patient for admission. Triage Nursing notes reviewed and agree them. Prior medical records reviewed Vital Signs: reviewed and remarkable for hypoxia. Differential diagnosis: Reactive airway disease, pneumonia, pneumothorax, COPD, CHF, infections, cardiac ischemia, pulmonary embolism, musculoskeletal, gastrointestinal, as well as other pathologies. ER treatment provided: See below. Diagnostics interpreted by me: ECG: Sinus rhythm, 73 bpm, ST and T wave abnormality without overt ST elevation or depression, similar morphology to prior. Cardiac Monitoring: An order for continuous cardiac monitoring was placed and demonstrated Sinus rhythm, 73 bpm, no ectopy. Laboratory studies: See below Imaging studies: See below Consultation(s): Case was discussed with ISAAC Mendoza hospitalist, who will evaluate the patient for admission. HPI: The patient is a pleasant 80-year-old woman with a past medical history of chronic diastolic heart failure, aortic stenosis with severe bioprosthetic disease with [place] [facility] [place] next week for evaluation and additional recommendations for possible TAVR, hypertension who presents emergency department with worsening shortness of breath and edema in her lower extremities in the setting of going away for the weekend to [facility] and reports she had worsening shortness of breath throughout the trip and particularly worse today where she could not catch her breath with minimal exertion. She reports she has been weighing herself daily and her weights are down but her legs have become more swollen than they ever are. She reports she maintained a low-sodium diet while she was on her trip but her family kept urging her to drink fluids to stay hydrated. Review of the patient's recent CHF visit on 03/04 document a dry weight of 197 pounds and was noted to be 209 pounds in the clinic. Recommendations for low-sodium diet were reviewed. Her outpatient BNP from that visit was 19,000 increased from prior. Her last echocardiogram showed normal LV size and low normal systolic function with EF of 50-55%. A heart cath on 02/22 2021 showed chronic total occlusion of RCA, 80% mid circumflex lesion and patent LAD with nonobstructive disease. ROS: See above HPI for pertinent positives & negatives. A total of 10 systems reviewed and were otherwise negative. PAST MEDICAL HISTORY:See Below PAST SURGICAL HISTORY:See Below FAMILY HISTORY:See Below SOCIAL HISTORY:See Below HOME MEDICATIONS:See Below ALLERGIES:See Below VITALS:See Below PHYSICAL EXAMINATION: GENERAL: Awake, alert, mildly dyspneic-appearing, in no distress HENT: Normocephalic, atraumatic. Oropharynx unremarkable. EYES: Normal conjunctiva. Sclera non-icteric. NECK: Supple. No nuchal rigidity. FROM. Mild JVD. RESPIRATORY: Diminished BS at the bases, otherwise clear to auscultation. CARDIAC: Regular rate, normal rhythm. Extremities warm and well perfused. Pulses equal. ABDOMEN: Soft, non-distended. No tenderness to palpation. No rebound or guarding. No masses. RECTAL: Deferred. MUSCULOSKELETAL: Chest examination reveals no tenderness. The back is symmetrical on inspection without obvious abnormality. There is no CVA tendernes s to palpation. No joint edema. LOWER EXTREMITIES: Calves are equal size bilaterally and non-tender. 2+ BLE pitting edema. No discoloration. NEURO: Normal sensorium. No sensory or motor deficits noted. SKIN: No rash or jaundice noted. Mitch Mak MD Past Med/Surg History Medical History Arthritis CKD (chronic kidney disease) stage 2, GFR 60-89 ml/min HLD (hyperlipidemia) HTN (hypertension) Hypercholesterolemia Spinal stenosis Surgical History History of aortic valve replacement 2008, [place] [facility] [place] of back surgery History of cataract surgery History of total knee arthroplasty B/L, 2004, Dr Tavares History of tubal ligation Hx of repair of rotator cuff right, 1992, Dr Tavares Family History Mother Coronary heart disease Father Malignant neoplasm of pancreas Denies family history of Ovarian cancer Prostate cancer Myocardial infarction Breast cancer Colorectal cancer Social History Smoking Status: Former smoker Tobacco Type: Cigarettes Age Started Using Tobacco: 15; Age Quit Using Tobacco: 52; packs per day: 1; Years Smoked: 37; Cigarettes Per Day: 20; Number of Years Since Quit: 27; Second Hand Exposure: No; Hx Alcohol Use: No Hx Substance Use: No Preferred Language: Upper Sorbian Communication Ability: Effective Visual Impairment: No Limitations Hearing Ability: Normal Botany Teacher Required: No Beliefs That Will Affect Care: None marital status: Current Living Situation: Significant Other Current Living Situation Comment: with Partner Filippo Richter current occupational status: retired Other Information That Helps Us Care for You: No Feels Safe at Home: Yes Safety Concerns: Feels Safe At This Time Childhood Exposure to Second-Hand Smoke: No Dental Care, Regularly: No Physical Activity Frequency: Does not Exercise Seatbelt Use: always Sunscreen Use: Yes Assistive Devices: Denture - Upper, Denture - Lower, Glasses and Walker Allergies Allergies Allergy/AdvReac Type Severity Reaction Status Date / Time No Known Allergies Allergy Unknown PT NOT Verified 03/13/21 15:55 ALLERGIC TO OXYCODONE-HAD BEFORE WITHOUT PROB Home Meds Home Medications Medication Instructions Recorded Confirmed aspirin 325 mg tablet 325 mg PO DAILY tab 05/24/19 03/13/21 cholecalciferol (vitamin D3) 25 1,000 units PO DAILY cap 05/24/19 03/13/21 mcg (1,000 unit) capsule coenzyme Q10 100 mg capsule 100 mg PO DAILY cap 05/24/19 03/13/21 cranberry 400 mg capsule 400 mg PO DAILY 05/24/19 03/13/21 multivitamin 1 tab PO DAILY 05/24/19 03/13/21 furosemide [Lasix] 80 mg PO DAILY 03/13/21 03/13/21 Previous Rx's Medication Instructions Recorded atorvastatin 80 mg tablet 80 mg PO DAILY #90 tab 08/28/20 metoprolol tartrate 50 mg PO BID #60 tab 01/31/21 potassium gluconate 595 mg (99 mg) 595 mg PO DAILY #30 tab 03/04/21 tablet Results & Data (ED) Vital Signs Vital Signs - 24 hr 05/19/21 15:41 03/13/21 15:51 03/13/21 16:01 Temperature 37.0 C Temperature Source Oral Pulse Rate 72 72 Pulse Rate [Apical] Pulse Rate from SpO2 Sensor 74 Pulse Rhythm [Apical] Pulse Strength [Apical] Respiratory Rate 18 21 Respiratory Effort / Characteristics Spontaneous Respiratory Depth Normal Respiratory Pattern Regular Blood Pressure 98/54 L Blood Pressure [Right Arm] 101/53 L Blood Pressure Mean 68 Blood Pressure Mean [Right Arm] 69 Blood Pressure Position [Right Arm] Pulse Oximetry 89 L 100 Oxygen Delivery Method Room Air Sepsis Recent Fever Within 48 Hours No Sepsis New/Unexplained Change in Mental Status No Sepsis Action Taken by Nursing No Action Required 03/13/21 16:31 03/13/21 16:52 03/13/21 17:01 Temperature Temperature Source Pulse Rate 83 87 74 Pulse Rate [Apical] Pulse Rate from SpO2 Sensor 83 78 74 Pulse Rhythm [Apical] Pulse Strength [Apical] Respiratory Rate 24 21 34 H Respiratory Effort / Characteristics Respiratory Depth Respiratory Pattern Blood Pressure 99/77 L 104/65 Blood Pressure [Right Arm] Blood Pressure Mean 84 78 Blood Pressure Mean [Right Arm] Blood Pressure Position [Right Arm] Pulse Oximetry 98 100 100 Oxygen Delivery Method Sepsis Recent Fever Within 48 Hours Sepsis New/Unexplained Change in Mental Status Sepsis Action Taken by Nursing 03/13/21 17:10 03/13/21 17:20 03/13/21 17:30 Temperature Temperature Source Pulse Rate 78 75 70 Pulse Rate [Apical] Pulse Rate from SpO2 Sensor 78 85 70 Pulse Rhythm [Apical] Pulse Strength [Apical] Respiratory Rate 15 22 19 Respiratory Effort / Characteristics Respiratory Depth Respiratory Pattern Blood Pressure Blood Pressure [Right Arm] Blood Pressure Mean Blood Pressure Mean [Right Arm] Blood Pressure Position [Right Arm] Pulse Oximetry 99 98 99 Oxygen Delivery Method Sepsis Recent Fever Within 48 Hours Sepsis New/Unexplained Change in Mental Status Sepsis Action Taken by Nursing 03/13/21 17:31 03/13/21 17:40 03/13/21 17:50 Temperature Temperature Source Pulse Rate 74 72 73 Pulse Rate [Apical] Pulse Rate from SpO2 Sensor 82 75 76 Pulse Rhythm [Apical] Pulse Strength [Apical] Respiratory Rate 19 17 17 Respiratory Effort / Characteristics Respiratory Depth Respiratory Pattern Blood Pressure 116/65 Blood Pressure [Right Arm] Blood Pressure Mean 82 Blood Pressure Mean [Right Arm] Blood Pressure Position [Right Arm] Pulse Oximetry 99 100 100 Oxygen Delivery Method Sepsis Recent Fever Within 48 Hours Sepsis New/Unexplained Change in Mental Status Sepsis Action Taken by Nursing 03/13/21 18:00 03/13/21 19:56 03/13/21 19:58 Temperature Temperature Source Pulse Rate 71 Pulse Rate [Apical] 75 Pulse Rate from SpO2 Sensor 71 Pulse Rhythm [Apical] Regular Pulse Strength [Apical] Normal Respiratory Rate 19 18 Respiratory Effort / Characteristics Non-Labored Respiratory Depth Normal Respiratory Pattern Blood Pressure 114/61 Blood Pressure [Right Arm] 119/56 L Blood Pressure Mean 78 Blood Pressure Mean [Right Arm] 77 Blood Pressure Position [Right Arm] Sitting Pulse Oximetry 100 100 Oxygen Delivery Method Room Air Room Air Sepsis Recent Fever Within 48 Hours Sepsis New/Unexplained Change in Mental Status Sepsis Action Taken by Nursing Laboratory Data Attestation: I reviewed the patient's lab results. Result diagrams: 03/13/21 16:59 03/13/21 16:59 Lab Results 03/13/21 03/13/21 03/13/21 Range/Units 16:59 16:59 16:59 WBC 10.26 (4.8-10.8) K/uL RBC 4.29 (4.2-5.4) M/uL Hgb 14.0 (12.0-16.0) g/dL Hct 41.2 (37-47) % MCV 96.0 (80-100) fL MCH 32.6 (25-34) pg MCHC 34.0 (32-36) g/dL RDW Std Deviation 55.7 H (36.4-46.3) fL RDW Coeff of Lynnette 16.4 H (11.5-14.5) % Plt Count 223 (130-400) K/uL MPV 9.7 (7.4-10.4) fL Immature Gran % (Auto) 0.2 % Neut % (Auto) 81.8 % Lymph % (Auto) 11.6 % Shoshone % (Auto) 6.3 % Eos % (Auto) 0.0 % Baso % (Auto) 0.1 % Neut # (Auto) 8.39 H (1.4-6.5) K/uL Lymph # (Auto) 1.19 L (1.2-3.4) K/uL Shoshone # (Auto) 0.65 H (0.11-0.59) K/uL Eos # (Auto) 0.00 (0-0.5) K/uL Baso # (Auto) 0.01 (0-0.2) K/uL Immature Gran # (Auto) 0.02 (0.00-0.02) K/uL PT 12.0 (9.0-12.0) Seconds INR 1.2 H (0.9-1.1) APTT 28.2 (21.0-31.0) Seconds PTT Ratio 1.1 Sodium 129 L (136-145) mmol/L Potassium 3.4 L (3.5-5.1) mmol/L Chloride 88 L (98-107) mmol/L Carbon Dioxide 27 (21-32) mmol/L Anion Gap 14.0 H (3-11) BUN 49 H (7-18) mg/dl Creatinine 1.56 H (0.6-1.2) mg/dl Est Cr Clr Drug Dosing Not Reportable Est GFR ( Amer) 36.5 ml/min Est GFR (Non-Af Amer) 31.5 ml/min BUN/Creatinine Ratio 31.5 H (10-20) Glucose 124 H (70-99) mg/dl Calcium 9.4 (8.5-10.1) mg/dl Phosphorus 4.7 (2.5-4.9) mg/dl Magnesium 2.9 H (1.8-2.4) mg/dl Total Bilirubin 5.2 H (0.2-1) mg/dl Direct Bilirubin 0.7 H (0-0.2) mg/dl AST 174 H (15-37) U/L ALT 233 H (12-78) U/L Alkaline Phosphatase 162 H (45-117) U/L Troponin I 0.357 H* (0-0.045) ng/ml NT-Pro-B Natriuret Pep > 92761 H (0-1800) pg/ml Total Protein 7.1 (6.4-8.2) gm/dl Albumin 3.6 (3.4-5.0) gm/dl Globulin 3.5 (2.5-4.0) gm/dl Albumin/Globulin Ratio 1.0 (0.9-2) COVID-19 Eval Order SARS-CoV-2 (PCR) (Negative) 03/13/21 03/13/21 03/13/21 Range/Units 17:15 17:15 20:08 WBC (4.8-10.8) K/uL RBC (4.2-5.4) M/uL Hgb (12.0-16.0) g/dL Hct (37-47) % MCV (80-100) fL MCH (25-34) pg MCHC (32-36) g/dL RDW Std Deviation (36.4-46.3) fL RDW Coeff of Lynnette (11.5-14.5) % Plt Count (130-400) K/uL MPV (7.4-10.4) fL Immature Gran % (Auto) % Neut % (Auto) % Lymph % (Auto) % [place] % (Auto) % Eos % (Auto) % Baso % (Auto) % Neut # (Auto) (1.4-6.5) K/uL Lymph # (Auto) (1.2-3.4) K/uL [place]oshone # (Auto) (0.11-0.59) K/uL Eos # (Auto) (0-0.5) K/uL Baso # (Auto) (0-0.2) K/uL Immature Gran # (Auto) (0.00-0.02) K/uL PT 11.9 (9.0-12.0) Seconds INR 1.2 H (0.9-1.1) APTT 27.6 (21.0-31.0) Seconds PTT Ratio 1.0 Sodium (136-145) mmol/L Potassium (3.5-5.1) mmol/L Chloride (98-107) mmol/L Carbon Dioxide (21-32) mmol/L Anion Gap (3-11) BUN (7-18) mg/dl Creatinine (0.6-1.2) mg/dl Est Cr Clr Drug Dosing Est GFR ( Amer) ml/min Est GFR (Non-Af Amer) ml/min BUN/Creatinine Ratio (10-20) Glucose (70-99) mg/dl Calcium (8.5-10.1) mg/dl Phosphorus (2.5-4.9) mg/dl Magnesium (1.8-2.4) mg/dl Total Bilirubin (0.2-1) mg/dl Direct Bilirubin (0-0.2) mg/dl AST (15-37) U/L ALT (12-78) U/L Alkaline Phosphatase (45-117) U/L Troponin I (0-0.045) ng/ml NT-Pro-B Natriuret Pep (0-1800) pg/ml Total Protein (6.4-8.2) gm/dl Albumin (3.4-5.0) gm/dl Globulin (2.5-4.0) gm/dl Albumin/Globulin Ratio (0.9-2) COVID-19 Eval Order Covid19 at [facility] SARS-CoV-2 (PCR) NEGATIVE (Negative) 03/13/21 Range/Units 20:08 WBC (4.8-10.8) K/uL RBC (4.2-5.4) M/uL Hgb (12.0-16.0) g/dL Hct (37-47) % MCV (80-100) fL MCH (25-34) pg MCHC (32-36) g/dL RDW Std Deviation (36.4-46.3) fL RDW Coeff of Lynnette (11.5-14.5) % Plt Count (130-400) K/uL MPV (7.4-10.4) fL Immature Gran % (Auto) % Neut % (Auto) % Lymph % (Auto) % [place] % (Auto) % Eos % (Auto) % Baso % (Auto) % Neut # (Auto) (1.4-6.5) K/uL Lymph # (Auto) (1.2-3.4) K/uL [place] # (Auto) (0.11-0.59) K/uL Eos # (Auto) (0-0.5) K/uL Baso # (Auto) (0-0.2) K/uL Immature Gran # (Auto) (0.00-0.02) K/uL PT (9.0-12.0) Seconds INR (0.9-1.1) APTT (21.0-31.0) Seconds PTT Ratio Sodium (136-145) mmol/L Potassium (3.5-5.1) mmol/L Chloride (98-107) mmol/L Carbon Dioxide (21-32) mmol/L Anion Gap (3-11) BUN (7-18) mg/dl Creatinine (0.6-1.2) mg/dl Est Cr Clr Drug Dosing Est GFR ( Amer) ml/min Est GFR (Non-Af Amer) ml/min BUN/Creatinine Ratio (10-20) Glucose (70-99) mg/dl Calcium (8.5-10.1) mg/dl Phosphorus (2.5-4.9) mg/dl Magnesium (1.8-2.4) mg/dl Total Bilirubin (0.2-1) mg/dl Direct Bilirubin (0-0.2) mg/dl AST (15-37) U/L ALT (12-78) U/L Alkaline Phosphatase (45-117) U/L Troponin I 0.412 H* (0-0.045) ng/ml NT-Pro-B Natriuret Pep (0-1800) pg/ml Total Protein (6.4-8.2) gm/dl Albumin (3.4-5.0) gm/dl Globulin (2.5-4.0) gm/dl Albumin/Globulin Ratio (0.9-2) COVID-19 Eval Order SARS-CoV-2 (PCR) (Negative) Administered Medications Heparin Sodium/Dextrose (Heparin Sodium/Dextrose) 25,000 units in 500 mls @ 17 mls/hr IV .Q24H WADE; Protocol Stop: 04/12/21 21:39 Last Admin: 03/13/21 22:35 Dose: 850 units/hr, 17 mls/hr Documented by: [id number] Cosigned by: [id number] Metoprolol Tartrate (Metoprolol Tartrate 50 Mg Tab) 50 mg PO BID WADE Stop: 04/12/21 23:24 Last Admin: 03/14/21 00:08 Dose: 50 mg Documented by: [id number] Discontinued Medications Furosemide (Furosemide 40 Mg/4 Ml Vial) 80 mg IV NOW STA Stop: 03/13/21 18:31 Last Admin: 03/13/21 20:06 Dose: 80 mg Documented by: [id number] Heparin Sodium (Porcine) (Heparin Sod (Porcine) 1000 Unit/Ml) 4,000 units IV NOW ONE Stop: 03/13/21 21:41 Last Admin: 03/13/21 22:35 Dose: 4,000 units Documented by: [id number] Cosigned by: [id number] Heparin Sodium (Porcine) (Heparin Sod (Porcine) 1000 Unit/Ml) Confirm Administered Dose 1,000 units .ROUTE .STK-MED ONE Stop: 03/13/21 21:15 Last Admin: 03/13/21 22:36 Dose: Not Given Documented by: [id number] Heparin Sodium/Dextrose (Heparin Iv Adult Wt-Based Low-Dose With Bolus Protocol) 1 ea IV NOW STA; Protocol Stop: 03/13/21 20:35 Last Admin: 03/13/21 22:36 Dose: Not Given Documented by: [id number] Heparin Sodium/Dextrose (Heparin 85962 Unit/500 Ml D5w) Confirm Administered Dose 25,000 units IV .STK-MED ONE Stop: 03/13/21 21:15 Last Admin: 03/13/21 22:36 Dose: Not Given Documented by: [id number] Potassium Chloride (K Ramirez / Wtr) 10 meq in 100 mls @ 100 mls/hr IV Q1H WADE Stop: 03/13/21 20:29 Last Infusion: 03/14/21 01:49 Dose: 0 mls/hr Documented by: [id number] Admin: 03/14/21 00:07 Dose: 100 mls/hr Documented by: [id number] Infusion: 03/13/21 21:06 Dose: 100 mls/hr Documented by: [id number] Admin: 03/13/21 20:06 Dose: 100 mls/hr Documented by: [id number] Potassium Chloride (Potassium Chloride Crtab 20 Meq Tabcr) 20 meq PO NOW STA Stop: 03/13/21 19:40 Last Admin: 03/14/21 00:08 Dose: 20 meq Documented by: [id number] Imaging Data Radiologist's Impression: Chest X-Ray 03/13/21 16:24 XR chest 1V portable CLINICAL HISTORY: Shortness of breath. COMPARISON STUDY: Chest radiograph March 04, 2021. FINDINGS: Median sternotomy wires are noted. There is cardiomegaly. No pneumothorax is present. Interstitial thickening consistent with pulmonary edema has progressed. There are moderate left and small right pleural effusions. IMPRESSION: 1. Progression of pulmonary edema since prior exam of March 04, 2021. 2. Moderate left and small right pleural effusions. ACT 112: Negative or not required by law. Electronically signed by: Chiki Jaime M.D. 03/13/2021 4:59 PM Discharge Plan Visit Data Chief Complaint: Shortness of Breath/Dyspnea ED Provider: Mitch Mak Discharge Problem: Aortic stenosis, severe, Acute exacerbation of CHF (congestive heart failure), Elevated troponin, Elevated brain natriuretic peptide (BNP) level, Hypoxia, Hyponatremia, Renal insufficiency, Hypokalemia Patient Disposition: Admitted As Inpatient Discharge Instructions Interventions: ED Discharge Assessment Last Done: 03/13/21 22:47 Discharge Problem: Acute exacerbation of CHF (congestive heart failure) Qualifiers: Heart failure type: unspecified Qualified Code(s): I50.9 - Heart failure, unspecified
[2021-03-13 17:12] LABS: Basophils # (auto) 0.01 K/uL (0-0.2); Basophils % (auto) 0.1 %; Hematocrit (blood only) 41.2 % (37-47); Immature Granulocytes # (auto) 0.02 K/uL (0.00-0.02); Immature Granulocytes % (auto) 0.2 %; Lymphocytes # (auto) 1.19 K/uL (1.2-3.4); Lymphocytes % (auto) 11.6 %; Mean Corpuscular Hemoglobin 32.6 pg (25-34); Mean Platelet Volume 9.7 fL (7.4-10.4); Monocytes # (auto) 0.65 K/uL (0.11-0.59); Monocytes % (auto) 6.3 %; Neutrophils # (auto) 8.39 K/uL (1.4-6.5); Neutrophils % (auto) 81.8 %; Platelet Count 223 K/uL (130-400); RDW Coefficient of Variation 16.4 % (11.5-14.5); RDW Standard Deviation 55.7 fL (36.4-46.3); Red Blood Count 4.29 M/uL (4.2-5.4); White Blood Count 10.26 K/uL (4.8-10.8)
[2021-03-13 17:24] LABS: INR 1.2 (0.9-1.1); Partial Thromboplastin Ratio 1.1; Partial Thromboplastin Time 28.2 Seconds (21.0-31.0)
[2021-03-13 17:28] LABS: Alanine Aminotransferase 233 U/L (12-78); Albumin Level 3.6 gm/dl (3.4-5.0); Aspartate Aminotransferase 174 U/L (15-37); BUN Creatinine Ratio 31.5 (10-20); Bilirubin Direct 0.7 mg/dl (0-0.2); Blood Urea Nitrogen 49 mg/dl (7-18); Calcium 9.4 mg/dl (8.5-10.1); Carbon Dioxide 27 mmol/L (21-32); Chloride 88 mmol/L (98-107); Est GFR (African American) 36.5 ml/min; Est GFR (Non-African American) 31.5 ml/min; Glucose 124 mg/dl (70-99); Magnesium 2.9 mg/dl (1.8-2.4); Potassium 3.4 mmol/L (3.5-5.1); Sodium 129 mmol/L (136-145)
[2021-03-13 17:50] LABS: Alkaline Phosphatase 162 U/L (45-117); Bilirubin,Total 5.2 mg/dl (0.2-1); Globulin 3.5 gm/dl (2.5-4.0); NT Pro B Type Natriuretic Pept > 35000 pg/ml (0-1800); Phosphorus 4.7 mg/dl (2.5-4.9); Total Protein 7.1 gm/dl (6.4-8.2); Troponin I 0.357 ng/ml (0-0.045)
[2021-03-13] MEDS ORDERED: FUROSEMIDE 40 MG/4 ML VIAL IV STA (18:30)
[2021-03-13] MEDS ORDERED: POTASSIUM CHLORIDE CRTAB 20 MEQ TABCR PO STA (19:39)
--- NOTE | 2021-03-13 19:48 | History & Physical Report ---
Date of Service March 13, 2021 Assessment & Plan (1) NSTEMI (non-ST elevated myocardial infarction): With known CAD and in acute heart failure volume overload, difficult to know at this time the cause - She will be started on Heparin drip---> adult low dose with bolus - Continue to trend her troponin and ECG q6 hours - Not with active chest pain or angina at this time - Continue her ASA - Continue her Metoprolol unless HF decompensation worsens (2) Aortic stenosis, severe: Severe aortic stenosed bioprosthetic aortic valve - follow diuresing following the 80mg IV Lasix - monitor MAP and hemodynamic response - continue oral Lasix can change to more conventional IV dose in the morning (3) Chronic diastolic congestive heart failure: Currently hemodynamically stable. ECHO 02/13- EF 50-55% with moderate MR and severe - warm peripherals, with pulmonary edema and 3+ edema and congestive hepatopathy via labs - She was discharged on Dyazide 37.5/25 mg QOD, she states she hasn't taken this - will add back in the morning with her oral Lasix, pending that she remains hemodynamically stable with diuresis as above (4) CKD (chronic kidney disease) stage 2, GFR 60-89 ml/min: ABDIRIZAK type II on CKD - likely pre-renal in the setting of her heart failure exacerbation - Follow renal labs in the morning (5) Hypercholesterolemia: Continue statin (6) HTN (hypertension): As above (7) Pleural effusion: Chronic likley transudative with her HF, no acute needs at this time - continue diuresing (8) Hyponatremia: Hypervolemic hyponatremia - follow with diuresing (9) Elevated liver enzymes: Likely related to congestive hepatopathy - INR 1.2 - Follow CMP in the morning - INR q6 hours while on heparin History of Present Illness Primary Care Provider: Chester Garcia MD 80 YOF with past medical history of Arthritis, bilateral knee replacements, Aortic-bioprosthetic valve replacement (2008), mild mitral regurge, HTN, HLD, obesity. Patient was recently in January for HF exacerbation and confirmation that her prosthetic aortic valve was severely stenosed. She was referred to [facility] for evaluation and she would be a candidate for TAVR, she is to have an appointment on Thursday to get her TAVR, protocol CT scans done and meet with the CT surgeons at that time. She had a cardiac cath done at that time as well with failed PCI to the RCA secondary to complete total occlusion with robust left to right collaterals, heavily calcified LCX with 80% stenosis. Patient called EMS today for worsening dyspnea and worsening of her edema to her lower extremities bilaterally. She is more fatigued appearing than her last visit and she reports that she is not sleeping well secondary to her legs being more swollen, dyspnea, and her chronic back pain. She went camping this week with her family and denies any dietary indiscretion. She had to use the furniture to help her get around in the camper. She has not been having any chest pain, but has been experiencing more dyspnea as above and nausea the past 2 days, which has kept her from eating. In the ER she had a troponin [place] 0[place] [address]. She was given 80 mg Lasix IV. Her ECG shows sinus rhythm with increase t-wave inversion in her lateral/anterior leads, and flattening of her T waves in V2-V3 and poor r-wave in V3 with comparison to her January ECG. She will be started on heparin drip and admitted to the PCU. I reviewed her case with Dr. Brock over the phone. Cardiology will be consulted to assist with management. Allergies Allergy/AdvReac Type Severity Reaction Status Date / Time No Known Allergies Allergy Unknown PT NOT Verified 03/13/21 15:55 ALLERGIC TO OXYCODONE-HAD BEFORE WITHOUT PROB Home Medications Medication Instructions Recorded Confirmed Type aspirin 325 mg tablet 325 mg PO DAILY tab 05/24/19 03/13/21 History cholecalciferol (vitamin D3) 25 1,000 units PO DAILY cap 05/24/19 03/13/21 History mcg (1,000 unit) capsule coenzyme Q10 100 mg capsule 100 mg PO DAILY cap 05/24/19 03/13/21 History cranberry 400 mg capsule 400 mg PO DAILY 05/24/19 03/13/21 History multivitamin 1 tab PO DAILY 05/24/19 03/13/21 History atorvastatin 80 mg tablet 80 mg PO DAILY #90 tab 08/28/20 03/13/21 Rx metoprolol tartrate 50 mg PO BID #60 tab 01/31/21 03/13/21 Rx potassium gluconate 595 mg (99 mg) 595 mg PO DAILY #30 tab 03/04/21 03/13/21 Rx tablet furosemide [Lasix] 80 mg PO DAILY 03/13/21 03/13/21 History Past Med/Surg History Medical History Arthritis CKD (chronic kidney disease) stage 2, GFR 60-89 ml/min HLD (hyperlipidemia) HTN (hypertension) Hypercholesterolemia Spinal stenosis Surgical History [place] 2008, [place] [facility] [place] of back surgery History of cataract surgery History of total knee arthroplasty B/L, 2004, Dr Tavares History of tubal ligation Hx of repair of rotator cuff right, 1992, Dr Tavares Family History Mother Coronary heart disease Father Malignant neoplasm of pancreas Denies family history of Ovarian cancer Prostate cancer Myocardial infarction Breast cancer Colorectal cancer Social History Smoking Status: Former smoker Tobacco Type: Cigarettes Age Started Using Tobacco: 15; Age Quit Using Tobacco: 52; packs per day: 1; Years Smoked: 37; Cigarettes Per Day: 20; Number of Years Since Quit: 27; Second Hand Exposure: No; Hx Alcohol Use: No Hx Substance Use: No Preferred Language: German Communication Ability: Effective Visual Impairment: No Limitations Hearing Ability: Normal Medical Instructor Required: No Beliefs That Will Affect Care: None marital status: Current Living Situation: Significant Other Current Living Situation Comment: with Partner Filippo Richter current occupational status: retired Other Information That Helps Us Care for You: No Feels Safe at Home: Yes Safety Concerns: Feels Safe At This Time Childhood Exposure to Second-Hand Smoke: No Dental Care, Regularly: No Physical Activity Frequency: Does not Exercise Seatbelt Use: always Sunscreen Use: Yes Assistive Devices: Denture - Upper, Denture - Lower, Glasses and Walker Review of Systems Review of Systems: REVIEW OF SYSTEMS: Constitutional: No fever, sweats or chills Eyes: No diplopia, no worsening or blurred vision ENT: normal hearing, no trouble swallowing Respiratory: (+) dyspnea at rest or on exertion, No cough, sputum, Cardiovascular: No chest pain, tightness or palpitations Abdomen: No pain, nausea, vomiting, diarrhea or constipation Musculoskeletal: No joint pain, calf pain, swelling Neurologic: No weakness, numbness/tingling, or balance problems Psychiatric: No anxiety or depression Skin: No rash or itch Physical Exam Physical Exam: PHYSICAL EXAM: General: awake, alert, no apparent distress Head: Normocephalic, atraumatic ENT: PERRL, EOMI, no pharyngeal exudate, mucous membranes moist Neuro: AAO x 3, speech clear and appropriate, strength intact bilaterally 5/5, sensation intact and equal all extremities and dermatomes, no pronator drift Chest: equal rise and fall of the chest, no accessory muscle use, can not lay flat, no heaves or thrills, bilateral scattered crackles to auscultation, on 2lNC Cardiac: Regular rate and rhythm, telemetry reviewed, skin warm dry, cap refill <3 seconds, peripheral pulses +2 no JVD, systolic murmurs best heard at RSB and LSB with radiation to the carotids as well as to the axillae. GI: nausea, NABS x 4 quadrants, soft, nontender to palpation, no rebound, guarding or tenderness : Romeo placed, no pain, no CVA tenderness, Extremities: Normal inspection, no peripheral edema or erythema, calfs nontender to palpation Psych: Normal mood and affect Skin: no rash or erythema Results & Data Results & Data ([facility]) Vital Signs (Past 12 Hours) Vital Signs Temp Pulse Resp BP BP Pulse Ox 03/13/21 18:00 71 19 114/61 100 03/13/21 17:50 73 17 100 03/13/21 17:40 72 17 100 03/13/21 17:31 74 19 116/65 99 03/13/21 17:30 70 19 99 03/13/21 17:20 75 22 98 03/13/21 17:10 78 15 99 03/13/21 17:01 74 34 H 100 03/13/21 16:52 87 21 104/65 100 03/13/21 16:31 83 24 99/77 L 98 03/13/21 16:01 72 21 98/54 L 100 03/13/21 15:51 101/53 L 03/13/21 15:41 37.0 C 72 18 89 L Laboratory Results Abnormal lab results 03/13/21 03/13/21 03/13/21 Range/Units 16:59 16:59 16:59 RDW Std Deviation 55.7 H (36.4-46.3) fL RDW Coeff of Lynnette 16.4 H (11.5-14.5) % Neut # (Auto) 8.39 H (1.4-6.5) K/uL Lymph # (Auto) 1.19 L (1.2-3.4) K/uL [place] # (Auto) 0.65 H (0.11-0.59) K/uL INR 1.2 H (0.9-1.1) Sodium 129 L (136-145) mmol/L Potassium 3.4 L (3.5-5.1) mmol/L Chloride 88 L (98-107) mmol/L Anion Gap 14.0 H (3-11) BUN 49 H (7-18) mg/dl Creatinine 1.56 H (0.6-1.2) mg/dl BUN/Creatinine Ratio 31.5 H (10-20) Glucose 124 H (70-99) mg/dl Magnesium 2.9 H (1.8-2.4) mg/dl Total Bilirubin 5.2 H (0.2-1) mg/dl Direct Bilirubin 0.7 H (0-0.2) mg/dl AST 174 H (15-37) U/L ALT 233 H (12-78) U/L Alkaline Phosphatase 162 H (45-117) U/L Troponin I 0.357 H* (0-0.045) ng/ml NT-Pro-B Natriuret Pep > 96978 H (0-1800) pg/ml 03/13/21 03/13/21 Range/Units 20:08 20:08 RDW Std Deviation (36.4-46.3) fL RDW Coeff of Lynnette (11.5-14.5) % Neut # (Auto) (1.4-6.5) K/uL Lymph # (Auto) (1.2-3.4) K/uL [place] # (Auto) (0.11-0.59) K/uL INR 1.2 H (0.9-1.1) Sodium (136-145) mmol/L Potassium (3.5-5.1) mmol/L Chloride (98-107) mmol/L Anion Gap (3-11) BUN (7-18) mg/dl Creatinine (0.6-1.2) mg/dl BUN/Creatinine Ratio (10-20) Glucose (70-99) mg/dl Magnesium (1.8-2.4) mg/dl Total Bilirubin (0.2-1) mg/dl Direct Bilirubin (0-0.2) mg/dl AST (15-37) U/L ALT (12-78) U/L Alkaline Phosphatase (45-117) U/L Troponin I 0.412 H* (0-0.045) ng/ml NT-Pro-B Natriuret Pep (0-1800) pg/ml Diagnostic Findings Chest X-Ray 03/13/21 16:24 XR chest 1V portable CLINICAL HISTORY: Shortness of breath. COMPARISON STUDY: Chest radiograph March 04, 2021. FINDINGS: Median sternotomy wires are noted. There is cardiomegaly. No pneumothorax is present. Interstitial thickening consistent with pulmonary edema has progressed. There are moderate left and small right pleural effusions. IMPRESSION: 1. Progression of pulmonary edema since prior exam of March 04, 2021. 2. Moderate left and small right pleural effusions. Electronically signed by: Chiki Jaime M.D. 03/13/2021 4:59 PM Medications Administered Home Medications aspirin 325 mg tablet 325 mg PO DAILY tab 05/24/19 [History Confirmed 03/13/21] cholecalciferol (vitamin D3) 25 mcg (1,000 unit) capsule 1,000 units PO DAILY cap 05/24/19 [History Confirmed 03/13/21] coenzyme Q10 100 mg capsule 100 mg PO DAILY cap 05/24/19 [History Confirmed 03/13/21] cranberry 400 mg capsule 400 mg PO DAILY 05/24/19 [History Confirmed 03/13/21] multivitamin 1 tab PO DAILY 05/24/19 [History Confirmed 03/13/21] atorvastatin 80 mg tablet 80 mg PO DAILY #90 tab 08/28/20 [Rx Confirmed 03/13/21] metoprolol tartrate 50 mg PO BID #60 tab 01/31/21 [Rx Confirmed 03/13/21] potassium gluconate 595 mg (99 mg) tablet 595 mg PO DAILY #30 tab 03/04/21 [Rx Confirmed 03/13/21] furosemide [Lasix] 80 mg PO DAILY 03/13/21 [History Confirmed 03/13/21] Active Medications Heparin Sodium (Porcine) (Heparin Sod (Porcine) 1000 Unit/Ml) 1 units IV NOW ONE Stop: 03/13/21 20:50 Heparin Sodium/Dextrose (Heparin Iv Adult Wt-Based Low-Dose With Bolus Protocol) 1 ea N/A NOW STA; Protocol Stop: 03/13/21 20:35 Heparin Sodium/Dextrose (Heparin Sodium/Dextrose) 25,000 units in 500 mls @ 0.02 mls/hr IV .Q24H WADE; Protocol Stop: 04/12/21 20:48 Potassium Chloride (Potassium Chloride Crtab 20 Meq Tabcr) 20 meq PO NOW STA Stop: 03/13/21 19:40 ECG Additional Comments: Normal sinus rhythm Cannot rule out Anterior infarct (cited on or before 13-MAR-2021) Marked ST abnormality, possible lateral subendocardial injury Abnormal ECG Code Status & VTE Plan Code Status CODE: FULL VTE: SCD's, Heparin drip VTE Prophylaxis Plan VTE Prophylaxis will be ordered: Yes Critical Care Time Total Critical Care Time: 20 Supervising Physician Co-Signing Physician Notes Patient seen and examined, chart reviewed, case discussed with MEGAN Sherman and I agree with his assessment and plan as above. Briefly, patient is a 80yo C female s/p bioprosthetic AVR with severe stenosis of prosthetic - planning for a TAVR in the future presenting with LE edema, STOUT and fatigue. On exam she is afebrile, HD stable, NAD Skin - no rash HEENT - NC/AT, PERRL MMM Hear t- +S1/S2, regular, holo-ALONSO at LSB across precordium to bilateral carotids Lungs- +Crackles in bilateral bases, no rhonchi/wheeze, no distress Abd - +BS, soft, NT/ND Ext - 3+ edema to knees, feet cool to touch, palpable pulses 1+ Neuro - no focal deficits Labs and images reviewed. Patient with elevated BNP as well as troponin EKG with concern for anterior ST changes Assessment/Plan - suspect acute decompensated CHF secondary to aortic valve pathology -Given Lasix 80mg IV in ER - will monitor I/O as well as hemodynamics - caution with preload reduction in severe -Heparin gtt for possible NSTEMI -Trend troponin -Cardiology consultation appreciated -Remainder of plan as above PG Care Time/CCT Total # of Minutes Spent Total Time Spent with Patient: Total time spent is greater than 50% in coordination of care (as documented) at patient's floor/unit and/or counseling patient: Total Critical Care Time: 20 Coding Level of Care Code 08507 Initial Inpt Care Lvl 3 Diagnoses NSTEMI (non-ST elevated myocardial infarction) I21.4 Aortic stenosis, severe I35.0 Chronic diastolic congestive heart failure I50.32 CKD (chronic kidney disease) stage 2, GFR 60-89 ml/min N18.2 Hypercholesterolemia E78.00 HTN (hypertension) I10 Hypertension type: essential hypertension Pleural effusion J90 Hyponatremia E87.1 Elevated liver enzymes R74.8 (1) HTN (hypertension) Hypertension type: essential hypertension Qualified Code(s): I10 - Essential (primary) hypertension
[2021-03-13] MEDS: POTASSIUM CHLORIDE / WTR 10 MEQ/100 ML PLCT IV SCH (20:06)
[2021-03-13 20:30] LABS: INR 1.2 (0.9-1.1); Partial Thromboplastin Time 27.6 Seconds (21.0-31.0); Prothrombin Time 11.9 Seconds (9.0-12.0)
[2021-03-13] MEDS ORDERED: Heparin IV Adult Wt-Based Low-Dose WITH Bolus Protocol IV STA (20:34)
[2021-03-13] MEDS ORDERED: HEPARIN 25000 UNIT/500 ML D5W IV ONE (21:14)
[2021-03-13] MEDS ORDERED: HEPARIN SOD (PORCINE) 1000 UNIT/ML ONE (21:14)
[2021-03-13] MEDS ORDERED: HEPARIN SODIUM/DEXTROSE 25,000 UNITS/500 ML BAG IV SCH (21:40)
[2021-03-13] MEDS ORDERED: HEPARIN SOD (PORCINE) 1000 UNIT/ML IV ONE (21:40)
[2021-03-13] MEDS ORDERED: POLYETHYLENE (MIRALAX) 17 GM PACK PO PRN (23:25)
[2021-03-14] MEDS: POTASSIUM CHLORIDE / WTR 10 MEQ/100 ML PLCT IV SCH (00:07)
[2021-03-14] MEDS: METOPROLOL TARTRATE 50 MG TAB PO SCH ×3 (00:08→20:26)
[2021-03-14 05:24] LABS: Albumin Level 3.2 gm/dl (3.4-5.0); BUN Creatinine Ratio 33.4 (10-20); Calcium 8.5 mg/dl (8.5-10.1); Creatinine Clr Calc Pharmacy 34.5 ml/min; Est GFR (African American) 39.9 ml/min; Est GFR (Non-African American) 34.4 ml/min; Potassium 3.6 mmol/L (3.5-5.1)
[2021-03-14 05:33] LABS: Partial Thromboplastin Ratio > 5.3
[2021-03-14 05:38] LABS: Bilirubin,Total 4.5 mg/dl (0.2-1); Globulin 3.2 gm/dl (2.5-4.0); Partial Thromboplastin Time > 139.0 Seconds (21.0-31.0); Total Protein 6.4 gm/dl (6.4-8.2); Troponin I 0.619 ng/ml (0-0.045)
[2021-03-14 07:35] LABS: Partial Thromboplastin Ratio 3.1
[2021-03-14 07:38] LABS: Partial Thromboplastin Time 81.2 Seconds (21.0-31.0)
[2021-03-14] MEDS: ATORVASTATIN 40 MG TAB PO SCH (08:05)
[2021-03-14] MEDS: TRIAMTERENE/HCTZ 37.5/25MG CAP PO SCH (08:05)
[2021-03-14] MEDS: ASPIRIN 325 MG ECTAB PO SCH (08:05)
[2021-03-14] MEDS: CHOLECALCIFEROL 1,000 UNITS 25 MCG TAB PO SCH (08:05)
[2021-03-14] MEDS ORDERED: NITROGLYCERIN SL 0.4 MG/TAB TAB SL PRN (08:28)
[2021-03-14] MEDS ORDERED: MoRPHine SULFATE 2 MG/ML CARP IV PRN (08:28)
[2021-03-14] MEDS ORDERED: FUROSEMIDE 80 MG TAB PO SCH (09:00)
[2021-03-14 14:23] LABS: Partial Thromboplastin Ratio 1.9
[2021-03-14 14:24] LABS: Partial Thromboplastin Time 49.3 Seconds (21.0-31.0)
--- NOTE | 2021-03-14 17:23 | Medical Student Progress Note ---
Date of Service March 14, 2021 Assessment & Plan (1) Acute exacerbation of CHF (congestive heart failure): Indy De Luna is a 80-year-old female with a PMHx of HFpEF, aortic stenosis with bioprosthetic valve replacement, CAD with chronic total RCA occlusion with collaterals, HTN, and HLD who presented to [facility] emergency department due to worsening shortness of breath and leg swelling. In the emergency department, ECG showed ST and T wave abnormalities and troponin was elevated to 0.357. Medical management for acute coronary syndrome and heart failure exacerbation was initiated. Of note, the patient currently has a scheduled cardiology consult in [place] on scheduled for March 18 to discuss TAVR. 1. NSTEMI * Patient has known history of CAD. Cardiac catheterization performed 02/22/21 revealed chronic total RCA occlusion with robust collaterals as well as a heavily calcified, occlusive LCX with 80% stenosis. * ECG: ST and T wave abnormalities in the inferolateral leads. QT prolongation and multiple PVCs * Troponin appears to have peaked and is now downtrending. (0.357 --> 0.412 --> 0.619 --> 0.530) Continue trending. * Continue ASA 325 mg, IV Heparin, and Metoprolol 50 mg BID * Nitroglycerin PRN * Cardiology consulted 2. HFpEF * Echocardiogram (01/30/21): Normal LV size and low-normal function. EF 50-55%. Moderate concentric LV hypertrophy. Mild LA dilation. Severe stenosis of the bioprosthetic AV valve. Mild-moderate MR. Moderate pulmonary HTN * IV Lasix given at time of admission. Continue PO Lasix 80 mg daily * NT-proBNP > 68034 * Low-sodium diet * Dry weight: 197 lbs 3. Aortic Stenosis Patient has severe aortic stenosis with bioprosthetic valve replacement in 2008. Most recent echo revealed severe stenosis of the bioprosthetic AV valve. She is currently scheduled for a cardiology consult in [place] on March 18 to discuss TAVR 4. Hyperlipidemia * Continue home Atorvastatin 80 mg 5. Hypertension * Continue home Dyazide (Triamterene/HCTZ) 6. Acute Kidney Injury * Elevated Cr of 1.56 with a BUN/Cr ratio of 31.5 at time of admission, which suggests prerenal etiology. Mild creatinine downtrend to 1.45 * Continue PO lasix * Recheck labs in AM Code Status: Full Code F/E/N: Low-sodium diet. Daily CMP VTE PPx: SCDs. Heparin Drip Dispo: PCU Heart failure type: unspecified Qualified Code(s): I50.9 - Heart failure, unspecified Admission and Anticipated Discharge Date Admission Date: March 13, 2021 Supervising Attestation Patient seen and examined with MS4 Lorenzo Lockwood. Agree with history, exam findings, assessment and plan of care as outlined with the following updates: In brief, Ms. De Luna is a 80 year old female with history of CAD, HFpEF, and bioprostetic aortic valve, CKD admitted with NSTEMI and heart failure. This morning, feeling a bit better. Does feel that the legs are a bit less edematous following lasix on admission. Denies chest pain. Dyspnea with mild exertion. No acute distress. Systolic murmur. Lungs clear to ascultation. +1 pitting edema to the mid almeida. 1. NSTEMI. Troponin has peaked. heparin gtt. Appreciate cardiology recomme ndations. 2. HFpEF. in exacerbation as evidence by pleural effusion/pulm vascular congestion. s.p lasix in the ED, continue gentle diuresis in light of her severe stenosis of the bioprosthetic aortic valve. Wean O2. I/O's and daily standing weights. Appreciate cardiology input on diuresis as well. 3. Aortic stenosis. Bioprosthetic valve. Has an appointment for replacement with [facility] on Thursday. 4. ABDIRIZAK on CKD. ?secondary to fluid overload. Monitor as we diurese. 5. Hyponatremia. Secondary to fluid overload. Expect that this will continue to improve as we diurese. 6. Transaminitis. Possibly secondary to vascular congestion. If not improving with diuresis, consider additional imaging to evaluate. Dispo: pending clinical improvement. Subjective Patient says that her shortness of breath is about the same as yesterday. At home, she is only able to walk 5-10 steps before coming short of breath. At this time, she denies any chest pain or palpitations. She also denies cough, fever, or chills. At the time of our meeting this morning, the patient has not yet been out of bed today. When seated, she denies lightheadedness, dizziness, headache, or vision change. She also denies any abdominal pain, nausea, or vomiting. However, she does endorse mild mid-lower back pain that she attributes to laying in the hospital bed. She notes that her legs still appear more swollen than her baseline. She denies any lower extremity pain. Review of Systems Constitutional: as per Subjective / HPI Eyes: no problem reported Ear, Nose, Mouth, Throat: no problem reported Respiratory: as per Subjective / HPI Cardiovascular: as per Subjective / HPI Gastrointestinal: as per Subjective / HPI Genitourinary: no problem reported Integumentary: no problem reported Neurologic: no problem reported Psychiatric: no problem reported Physical Exam Constitutional: + obese and cooperative; no acute distress Eyes: PERRL, conjunctivae normal, anicteric sclerae ENMT: external ear and nose normal, oropharynx normal Neck: normal visual inspection Respiratory: normal respiratory effort, lungs clear to auscultation Cardiovascular: Rate/Rhythm: regular rate and regular rhythm Heart Sounds: normal S1, normal S2 and + murmur (3/6 systolic ejection murmur loudest at the LUSB) Vessels: no JVD Extremities: normal capillary refill and + edema (bilateral lower extremities. 2+ pitting edema up to mid almeida) Gastrointestinal (Abdomen): normal bowel sounds, soft, nontender, no hepatosplenomegaly Skin: no rashes, warm and dry Psychiatric: A+Ox3, euthymic affect Results & Data ([facility]) Vital Signs (Past 12 Hours) Vital Signs Temp Pulse Pulse Resp BP Pulse Ox 03/14/21 15:54 36.3 C L 74 18 93/57 L 95 03/14/21 10:56 36.3 C L 69 19 100/65 96 03/14/21 09:36 67 03/14/21 08:03 36.7 C 75 17 109/59 L 93
--- NOTE | 2021-03-14 17:56 | Cardiology Consultation ---
Date of Consultation March 14, 2021 Assessment & Plan (1) Acute exacerbation of CHF (congestive heart failure): She presented with pulmonary vascular congestion and edema consistent with decompensated heart failure. She has preserved LV systolic function but severe aortic stenosis. She will require some diuresis. This will need to be done gently given her valvular heart disease. Hopefully we can improve her symptoms and continue ambulatory evaluation for her anticipated valve replacement and coronary intervention. (2) Elevated troponin: Mild elevation. Not indicative of an acute coronary syndrome. She was started on heparin last night as the etiology of the elevation was unclear. However, I think we can stop heparin in simply continue a daily aspirin. (3) Aortic stenosis, severe: Secondary to degenerated bioprosthetic valve. Unclear if she will require surgical intervention or percutaneous intervention. Scheduled to be evaluated on Thursday. Hopefully we can affect some diuresis and improve her symptoms otherwise she may need to be transferred for more urgent evaluation. (4) Coronary disease: Possibly amenable to percutaneous intervention. It seems they are trying to avoid additional sternotomy given the prior history of open heart surgery. I do not think her biomarker elevations are related to an acute coronary syndrome. She does not have symptoms consistent with coronary insufficiency or angina. Most her symptoms likely related to her severe aortic stenosis. Will continue daily aspirin and high-dose atorvastatin. History of Present Illness Reason for Consultation: Dyspnea, aortic stenosis, coronary artery disease Requesting Physician: Chetan Attending Physician: Nevin Benton DO History of Present Illness The patient is a 72-year-old woman with a prior history of a bioprosthetic aortic valve replacement in 2008. Recently she has been experiencing symptoms due to degeneration of the bioprosthetic valve and development of severe aortic stenosis. Symptoms primarily involve dyspnea and activity intolerance. Over the past few days she has been severely limited due to dyspnea. She states that even walking short distances produces severe dyspnea. He has had some difficulty sleeping and described an element of orthopnea. She has not described overt dizziness, lightheadedness or syncope. She has not been aware of palpitations. She has not been experiencing chest pain except brief episodes which she describes as burning. Is not exertional in nature and appear to be somewhat random. She states that her breathing is fine if she is at rest. She has noticed some lower extremity edema that she thought was improved today. Currently has some symptoms of left back discomfort. Allergies Allergy/AdvReac Type Severity Reaction Status Date / Time No Known Allergies Allergy Unknown PT NOT Verified 03/13/21 15:55 ALLERGIC TO OXYCODONE-HAD BEFORE WITHOUT PROB Home Medications Medication Instructions Recorded Confirmed Type aspirin 325 mg tablet 325 mg PO DAILY tab 05/24/19 03/13/21 History cholecalciferol (vitamin D3) 25 1,000 units PO DAILY cap 05/24/19 03/13/21 History mcg (1,000 unit) capsule coenzyme Q10 100 mg capsule 100 mg PO DAILY cap 05/24/19 03/13/21 History cranberry 400 mg capsule 400 mg PO DAILY 05/24/19 03/13/21 History multivitamin 1 tab PO DAILY 05/24/19 03/13/21 History atorvastatin 80 mg tablet 80 mg PO DAILY #90 tab 08/28/20 03/13/21 Rx metoprolol tartrate 50 mg PO BID #60 tab 01/31/21 03/13/21 Rx potassium gluconate 595 mg (99 mg) 595 mg PO DAILY #30 tab 03/04/21 03/13/21 Rx tablet furosemide [Lasix] 40 mg PO DAILY 03/13/21 03/14/21 History Patient History Medical History Arthritis CKD (chronic kidney disease) stage 2, GFR 60-89 ml/min HLD (hyperlipidemia) HTN (hypertension) Hypercholesterolemia Spinal stenosis Surgical History History of aortic valve replacement 2008, Dr Quintero, [facility] History of back surgery History of cataract surgery History of total knee arthroplasty B/L, 2004, Dr Tavares History of tubal ligation Hx of repair of rotator cuff right, 1992, Dr Tavares Family History Mother Coronary heart disease Father Malignant neoplasm of pancreas Denies family history of Ovarian cancer Prostate cancer Myocardial infarction Breast cancer Colorectal cancer Social History Smoking Status: Former smoker Tobacco Type: Cigarettes Age Started Using Tobacco: 15; Age Quit Using Tobacco: 52; packs per day: 1; Years Smoked: 37; Cigarettes Per Day: 20; Number of Years Since Quit: 27; Second Hand Exposure: No; Hx Alcohol Use: No Hx Substance Use: No Preferred Language: Irish Communication Ability: Effective Visual Impairment: No Limitations Hearing Ability: Normal Braid Folder Required: No Beliefs That Will Affect Care: None marital status: Current Living Situation: Significant Other Current Living Situation Comment: with Partner Filippo Richter current occupational status: retired Other Information That Helps Us Care for You: No Feels Safe at Home: Yes Safety Concerns: Feels Safe At This Time Childhood Exposure to Second-Hand Smoke: No Dental Care, Regularly: No Physical Activity Frequency: Does not Exercise Seatbelt Use: always Sunscreen Use: Yes Assistive Devices: Glasses Review of Systems Review of Systems: All systems reviewed & are unremarkable except as noted in HPI & below Per HPI Physical Exam Physical Exam: She is alert and oriented x3. Mood affect appear normal. She answered all questions appropriately. HEENT: Sclerae are anicteric. Pupils are equal and reactive to light and accommodation. Extraocular movements were intact. Neuro: Cranial nerves intact Neck: Examination of the submandibular region did not reveal any significant lymphadenopathy. Carotids are palpable bilaterally and free of bruits on auscultation. There was no evidence of jugular venous distention. The thyroid was not enlarged. Lungs: Pulmonary congestion noted in both lung taylor. No expiratory wheezing. Normal respiratory effort. Cardiac: The rhythm was regular. S1 and S2 were normal. High-pitched, crescendo systolic murmur. The PMI was not markedly displaced on palpation. Abdomen: The abdomen was soft and nontender. Extremities: Patient has bilateral radial pulses that are equal in intensity. There is no evidence cyanosis or clubbing. Mild lower extremity edema ly. Skin: There are no rashes noted on examination today. Results & Data ([facility]) Vital Signs (Past 12 Hours) Vital Signs Temp Pulse Pulse Resp BP Pulse Ox 03/14/21 15:54 36.3 C L 74 18 93/57 L 95 03/14/21 10:56 36.3 C L 69 19 100/65 96 03/14/21 09:36 67 03/14/21 08:03 36.7 C 75 17 109/59 L 93 Laboratory Results Abnormal Lab Results 03/13/21 03/13/21 03/13/21 17:15 20:08 20:08 PT 11.9 INR 1.2 H APTT 27.6 PTT Ratio 1.0 Sodium Potassium Chloride Carbon Dioxide Anion Gap BUN Creatinine Est Cr Clr Drug Dosing Est GFR ( Amer) Est GFR (Non-Af Amer) BUN/Creatinine Ratio Glucose Calcium Total Bilirubin AST ALT Alkaline Phosphatase Troponin I 0.412 H* Total Protein Albumin Globulin Albumin/Globulin Ratio SARS-CoV-2 (PCR) NEGATIVE 03/13/21 03/14/21 03/14/21 23:30 04:55 04:55 PT INR APTT > 139.0 H* PTT Ratio > 5.3 Sodium 133 L Potassium 3.6 Chloride 92 L Carbon Dioxide 32 Anion Gap 9.0 BUN 48 H Creatinine 1.45 H Est Cr Clr Drug Dosing 34.5 Est GFR ( Amer) 39.9 Est GFR (Non-Af Amer) 34.4 BUN/Creatinine Ratio 33.4 H Glucose 112 H Calcium 8.5 Total Bilirubin 4.5 H AST 187 H ALT 259 H Alkaline Phosphatase 152 H Troponin I 0.492 H* 0.619 H* Total Protein 6.4 Albumin 3.2 L Globulin 3.2 Albumin/Globulin Ratio 1.0 SARS-CoV-2 (PCR) 03/14/21 03/14/21 03/14/21 06:54 08:36 13:51 PT INR APTT 81.2 H* 49.3 H* PTT Ratio 3.1 1.9 Sodium Potassium Chloride Carbon Dioxide Anion Gap BUN Creatinine Est Cr Clr Drug Dosing Est GFR ( Amer) Est GFR (Non-Af Amer) BUN/Creatinine Ratio Glucose Calcium Total Bilirubin AST ALT Alkaline Phosphatase Troponin I 0.530 H* Total Protein Albumin Globulin Albumin/Globulin Ratio SARS-CoV-2 (PCR) Diagnostic Findings Cardiac catheterization performed 02/22/2021: 100% ostial RCA occlusion with [id number] collaterals. 80% mid circumflex lesion. Patent LAD. Performed 01/30/2021: Normal LV systolic function with ejection fraction of 50- 55%. Severe bioprosthetic aortic valve stenosis. Mild to moderate mitral regurgitation. Moderate pulmonary hypertension. PG Care Time/CCT Total # of Minutes Spent Total Time Spent with Patient: Total time spent is greater than 50% in coordination of care (as documented) at patient's floor/unit and/or counseling patient: Coding Level of Care Code 62816 Initial Inpt Care Lvl 3 Diagnoses Acute exacerbation of CHF (congestive heart failure) I50.9 Heart failure type: unspecified Elevated troponin R77.8 Aortic stenosis, severe I35.0 Coronary disease I25.10 (1) Acute exacerbation of CHF (congestive heart failure) Heart failure type: unspecified Qualified Code(s): I50.9 - Heart failure, unspecified
[2021-03-14] MEDS ORDERED: POTASSIUM CHLORIDE CRTAB 20 MEQ TABCR PO ONE (17:57)
--- NOTE | 2021-03-14 18:35 | Electrocardiogram Report ---
Test Reason : Blood Pressure : / mmHG Vent. Rate : 072 BPM Atrial Rate : 072 BPM P-R Int : 190 ms QRS Dur : 106 ms QT Int : 438 ms P-R-T Axes : 063 027 187 degrees QTc Int : 479 ms Normal sinus rhythm Marked ST abnormality, possible lateral subendocardial injury Abnormal ECG When compared with ECG of 13-MAR-2021 15:41, (unconfirmed) No change Confirmed by Miah Brock ([id number]) on 03/14/2021 6:35:07 PM Referred By: REFERRED SELF Confirmed By:Jose Carlos Brock
--- NOTE | 2021-03-14 18:37 | Electrocardiogram Report ---
Test Reason : Blood Pressure : / mmHG Vent. Rate : 066 BPM Atrial Rate : 066 BPM P-R Int : 186 ms QRS Dur : 110 ms QT Int : 470 ms P-R-T Axes : 042 031 197 degrees QTc Int : 492 ms Sinus rhythm with occasional Premature ventricular complexes Left ventricular hypertrophy with repolarization abnormality Prolonged QT Abnormal ECG When compared with ECG of 13-MAR-2021 19:43, (unconfirmed) Premature ventricular complexes are now Present Confirmed by Miah Brock ([id number]) on 03/14/2021 6:36:30 PM Referred By: REFERRED SELF Confirmed By:Jose Carlos Brock
--- NOTE | 2021-03-14 18:39 | Electrocardiogram Report ---
Test Reason : Blood Pressure : / mmHG Vent. Rate : 070 BPM Atrial Rate : 070 BPM P-R Int : 190 ms QRS Dur : 108 ms QT Int : 444 ms P-R-T Axes : 042 027 189 degrees QTc Int : 479 ms Normal sinus rhythm Possible Left atrial enlargement Prolonged QT Abnormal ECG When compared with ECG of 14-MAR-2021 05:54, (unconfirmed) Premature ventricular complexes are no longer Present R-wave progression is later in the precordial leads. T wave inversion less evident in Anterolateral leads Confirmed by Miah Brock ([id number]) on 03/14/2021 6:39:23 PM Referred By: REFERRED SELF Confirmed By:Jose Carlos Brock
[2021-03-14] MEDS: FUROSEMIDE 40 MG in SYRINGE 0 ML IV SCH (20:27)
[2021-03-15] MEDS ORDERED: ACETAMINOPHEN 325 MG TAB ONE (06:37)
[2021-03-15 07:22] LABS: Eosinophils # (auto) 0.01 K/uL (0-0.5); Eosinophils % (auto) 0.1 %; Hematocrit (blood only) 39.6 % (37-47); Hemoglobin 13.5 g/dL (12.0-16.0); Immature Granulocytes # (auto) 0.01 K/uL (0.00-0.02); Immature Granulocytes % (auto) 0.1 %; Mean Corpuscular Hemoglobin 32.5 pg (25-34); Mean Corpuscular Hgb Conc 34.1 g/dL (32-36); Mean Corpuscular Volume 95.4 fL (80-100); Mean Platelet Volume 9.6 fL (7.4-10.4); Monocytes # (auto) 0.75 K/uL (0.11-0.59); Monocytes % (auto) 7.5 %; Neutrophils # (auto) 8.28 K/uL (1.4-6.5); Neutrophils % (auto) 82.3 %; Platelet Count 190 K/uL (130-400); RDW Coefficient of Variation 16.2 % (11.5-14.5); RDW Standard Deviation 55.2 fL (36.4-46.3); Red Blood Count 4.15 M/uL (4.2-5.4); White Blood Count 10.05 K/uL (4.8-10.8)
[2021-03-15 07:54] LABS: Albumin Level 3.2 gm/dl (3.4-5.0); BUN Creatinine Ratio 36.8 (10-20); Calcium 8.8 mg/dl (8.5-10.1); Creatinine Clr Calc Pharmacy 39.5 ml/min; Est GFR (African American) 46.8 ml/min; Est GFR (Non-African American) 40.4 ml/min; Magnesium 2.6 mg/dl (1.8-2.4); Potassium 3.2 mmol/L (3.5-5.1)
[2021-03-15 08:00] LABS: Acanthocytes 1+; Ovalocytes 1+
[2021-03-15] MEDS: ATORVASTATIN 40 MG TAB PO SCH (08:08)
[2021-03-15] MEDS: ASPIRIN 325 MG ECTAB PO SCH (08:08)
[2021-03-15] MEDS: METOPROLOL TARTRATE 50 MG TAB PO SCH ×2 (08:08→20:22)
[2021-03-15] MEDS: FUROSEMIDE 40 MG in SYRINGE 0 ML IV SCH ×2 (08:08→17:41)
[2021-03-15] MEDS: TRIAMTERENE/HCTZ 37.5/25MG CAP PO SCH (08:08)
[2021-03-15] MEDS: CHOLECALCIFEROL 1,000 UNITS 25 MCG TAB PO SCH (08:08)
[2021-03-15 08:15] LABS: Albumin Globulin Ratio 0.9 (0.9-2); Bilirubin,Total 4.3 mg/dl (0.2-1); Globulin 3.4 gm/dl (2.5-4.0); Phosphorus 3.4 mg/dl (2.5-4.9); Total Protein 6.6 gm/dl (6.4-8.2)
[2021-03-15] MEDS: ENOXAPARIN INJ 30 MG/0.3 ML SYR SQ SCH (08:29)
[2021-03-15] MEDS ORDERED: POTASSIUM CHLORIDE 20 MEQ/15 ML UDC PO ONE (10:00)
--- NOTE | 2021-03-15 11:39 | Electrocardiogram Report ---
Test Reason : Blood Pressure : / mmHG Vent. Rate : 079 BPM Atrial Rate : 079 BPM P-R Int : 186 ms QRS Dur : 112 ms QT Int : 422 ms P-R-T Axes : 057 043 220 degrees QTc Int : 483 ms Sinus rhythm with Premature supraventricular complexes Left ventricular hypertrophy with repolarization abnormality Abnormal ECG When compared with ECG of 14-MAR-2021 08:32, Premature supraventricular complexes are now Present T wave inversion more evident in Lateral leads Confirmed by Miah Brock ([id number]) on 03/15/2021 11:39:28 AM Referred By: REFERRED SELF Confirmed By:Jose Carlos Brock
[2021-03-15] MEDS: POTASSIUM CHLORIDE CRTAB 20 MEQ TABCR PO SCH ×2 (13:03→20:23)
--- NOTE | 2021-03-15 17:08 | Medical Student Progress Note ---
Date of Service March 15, 2021 Assessment & Plan (1) Acute exacerbation of CHF (congestive heart failure): Indy De Luna is a 80-year-old female with a PMHx of HFpEF, aortic stenosis with bioprosthetic valve replacement, CAD with chronic total RCA occlusion with collaterals, HTN, and HLD who presented to [facility] emergency department due to worsening shortness of breath and leg swelling. The patient is being managed for a CHF exacerbation. The main culprit of her worsening dyspnea on exertion is likely her severely stenosed bioprosthetic AV valve. She has a scheduled cardiology consult at [facility] on March 18 to discuss TAVR. 1. Heart Failure Exacerbation * Echocardiogram (01/30/21): Normal LV size and low-normal function. EF 50-55%. Moderate concentric LV hypertrophy. Mild LA dilation. Severe stenosis of the bioprosthetic AV valve. Mild-moderate MR. Moderate pulmonary HTN * IV Lasix given at time of admission. Continue PO Lasix 80 mg daily * NT-proBNP > 55638 * Cardiology consult appreciated * Low-sodium diet * Hypokalemic (3.2) on 03/15/21. Repleted. Check daily BMP * Dry weight: 197 lbs 2. Elevated Troponin * Patient has known history of CAD. Cardiac catheterization performed 02/22/21 revealed chronic total RCA occlusion with robust collaterals as well as a heavily calcified, occlusive LCX with 80% stenosis. * ECG: ST and T wave abnormalities in the inferolateral leads. QT prolongation and multiple PVCs * Troponin appears to have peaked and is now downtrending. (0.357 --> 0.412 --> 0.619 --> 0.530) * Continue ASA 325. Heparin discontinued on 03/15/21. * Nitroglycerin PRN 3. Aortic Stenosis Patient has severe aortic stenosis with bioprosthetic valve replacement in 2008. Most recent echo revealed severe stenosis of the bioprosthetic AV valve. She is currently scheduled for a cardiology consult in [place] on March 18 to discuss TAVR 4. Hyperlipidemia * Continue home Atorvastatin 80 mg 5. Hypertension * Continue home Dyazide (Triamterene/HCTZ) 6. Acute Kidney Injury * Elevated Cr of 1.56 with a BUN/Cr ratio of 31.5 at time of admission, which suggests prerenal etiology. Creatinine has downtrended to 1.27 * Recheck labs in AM Code Status: Full Code F/E/N: Low-sodium diet. Daily CMP VTE PPx: SCDs. Lovenox Dispo: Medicine with Telemetry Heart failure type: unspecified Qualified Code(s): I50.9 - Heart failure, unspecified Admission and Anticipated Discharge Date Admission Date: March 13, 2021 Supervising Attestation Attending attestation Pt seen and examined in concert with Dr. Durant, [facility]. In agreement with the documented findings as noted in the resident documentation with any exceptions or additions as noted here. Resting in bed with gradual improvement in shortness of breath and leg swelling. On examination, S1/S2 nl RRR 2/6 ALONSO. Decreased breath sounds at bases. Abd NT/ND BS+ve. 2+ pitting edema to the midshin Severe aortic stenosis s/p bioprosthetic valve in 2008 - see HFpEF as below - has appointment for TAVR March 18, working on coordination btw PT needs and ability to make appointment to determine course of care HFpEF with exacerbation - cardiology consultation - continue diuresis, trend BMP Hypokalemia - repleted, trend BMP Elevated troponin in the setting of CAD - continue ASA. Nitro PRN Else see resident documentation as noted. Subjective Patient denies SOB at rest. However, she is still unable to walk more than a few steps without becoming short of breath. She denies chest pain, palpitations, or lightheadedness. She notes that her back pain continued overnight. However, since receiving morphine during the night, her pain has stopped. Review of Systems Constitutional: no fever and no chills Eyes: no problem reported Ear, Nose, Mouth, Throat: no problem reported Respiratory: + dyspnea and + dyspnea on exertion; no cough Cardiovascular: as per Subjective / HPI and + edema; no calf pain Gastrointestinal: no abdominal pain, no nausea and no vomiting Genitourinary: no problem reported Musculoskeletal: no problem reported Integumentary: no problem reported Neurologic: no problem reported Psychiatric: no problem reported Physical Exam Constitutional: WD/WN, vitals as above no acute distress Eyes: PERRL, conjunctivae normal, anicteric sclerae ENMT: external ear and nose normal, oropharynx normal Neck: normal visual inspection Respiratory: normal respiratory effort; no labored breathing Auscultation: + crackles (bilateral lung bases); no rhonchi and no wheezes Cardiovascular: Rate/Rhythm: regular rate and regular rhythm Heart Sounds: + murmur (systolic ejection murmur loudest at RUSB and LUSB) Vessels: brachial pulses present and radial pulses present; no JVD Extremities: + edema (2+ pitting edema about 3/4 up almeida bilaterally ); no calf tenderness Gastrointestinal (Abdomen): normal bowel sounds, soft, nontender, no hepatosplenomegaly Skin: no rashes, warm and dry Psychiatric: A+Ox3, euthymic affect Results & Data ([facility]) Vital Signs (Past 12 Hours) Vital Signs Temp Pulse Pulse Resp BP Pulse Ox 03/15/21 15:21 36.7 C 83 20 93/61 L 91 03/15/21 15:12 84 03/15/21 11:49 36.3 C L 74 18 98/65 L 95 03/15/21 08:00 72 03/15/21 06:56 36.4 C L 75 18 99/67 L 93
--- NOTE | 2021-03-15 17:16 | Cardiology Progress Note ---
Date of Service March 15, 2021 Assessment & Plan (1) Acute exacerbation of CHF (congestive heart failure): She is responding well to diuresis. Her symptoms appear to be improved based on her ability to get back and forth to the bathroom without limiting dyspnea. I will continue her diuresis. If she is ambulatory and able to get around she could easily be discharged with her scheduled follow-up in [place] on Thursday. If, for some reason, she does not improve or is not ambulatory without severe dyspnea than she would likely have to be transferred directly to [facility] to complete her evaluation and treatment. (2) Elevated troponin: Mild elevation. Not indicative of an acute coronary syndrome. (3) Aortic stenosis, severe: Secondary to degenerated bioprosthetic valve. Unclear if she will require surgical intervention or percutaneous intervention. Scheduled to be evaluated on Thursday. Hopefully we can affect some diuresis and improve her symptoms otherwise she may need to be transferred for more urgent evaluation. (4) Coronary disease: Possibly amenable to percutaneous intervention. It seems they are trying to avoid additional sternotomy given the prior history of open heart surgery. I do not think her biomarker elevations are related to an acute coronary syndrome. She does not have symptoms consistent with coronary insufficiency or angina. Most her symptoms likely related to her severe aortic stenosis. Will continue daily aspirin and high-dose atorvastatin. I will be away from the hospital for the next 2 days. Additional questions can be directed to the on-call college athletic director for [facility] Admission and Anticipated Discharge Date Admission Date: March 13, 2021 Subjective This afternoon the patient reported feeling poorly. She seems quite fatigued and was frustrated by her inability to sleep in the hospital. She states she has been having some difficulty sleeping for few weeks. It does not appear to be overtly related to orthopnea. She continues to have some element of breathing difficulty but was able to make it to the bathroom and back without limiting dyspnea. Review of Systems Review of Systems: Per HPI Physical Exam Physical Exam: She is alert and oriented x3. Mood affect appear normal. She answered all questions appropriately. HEENT: Sclerae are anicteric. Pupils are equal and reactive to light and accommodation. Extraocular movements were intact. Neuro: Cranial nerves intact Lungs: Right lung field appears clear, some decreased breath sounds and crackles at the left base. Cardiac: The rhythm was regular. S1 and S2 were normal. High-pitched, crescendo systolic murmur. The PMI was not markedly displaced on palpation. Abdomen: The abdomen was soft and nontender. Extremities: Patient has bilateral radial pulses that are equal in intensity. There is no evidence cyanosis or clubbing. Mild lower extremity edema bilaterally. Skin: There are no rashes noted on examination today. Results & Data ([facility]) Vital Signs (Past 12 Hours) Vital Signs Temp Pulse Pulse Resp BP Pulse Ox 03/15/21 15:21 36.7 C 83 20 93/61 L 91 03/15/21 15:12 84 03/15/21 11:49 36.3 C L 74 18 98/65 L 95 03/15/21 08:00 72 03/15/21 06:56 36.4 C L 75 18 99/67 L 93 Laboratory Results Abnormal Lab Results 03/15/21 03/15/21 03/15/21 06:54 06:54 07:42 WBC 10.05 RBC 4.15 L Hgb 13.5 Hct 39.6 MCV 95.4 MCH 32.5 MCHC 34.1 RDW Std Deviation 55.2 H RDW Coeff of Lynnette 16.2 H Plt Count 190 MPV 9.6 Immature Gran % (Auto) 0.1 Neut % (Auto) 82.3 Lymph % (Auto) 10.0 [place] % (Auto) 7.5 Eos % (Auto) 0.1 Baso % (Auto) 0.0 Neut # (Auto) 8.28 H Lymph # (Auto) 1.00 L [place] # (Auto) 0.75 H Eos # (Auto) 0.01 Baso # (Auto) 0.00 Immature Gran # (Auto) 0.01 Ovalocytes 1+ Acanthocytes (Spur) 1+ Sodium 130 L Potassium 3.2 L Chloride 90 L Carbon Dioxide 30 Anion Gap 10.0 BUN 47 H Creatinine 1.27 H Est Cr Clr Drug Dosing 39.5 Est GFR ( Amer) 46.8 Est GFR (Non-Af Amer) 40.4 BUN/Creatinine Ratio 36.8 H Glucose 98 POC Glucose 101 H Calcium 8.8 Phosphorus 3.4 D Magnesium 2.6 H Total Bilirubin 4.3 H AST 212 H ALT 344 H Alkaline Phosphatase 160 H Total Protein 6.6 Albumin 3.2 L Globulin 3.4 Albumin/Globulin Ratio 0.9 Diagnostic Findings Cardiac catheterization performed 02/22/2021: 100% ostial RCA occlusion with [id number] collaterals. 80% mid circumflex lesion. Patent LAD. Performed 01/30/2021: Normal LV systolic function with ejection fraction of 50- 55%. Severe bioprosthetic aortic valve stenosis. Mild to moderate mitral regurgitation. Moderate pulmonary hypertension. PG Care Time/CCT Total # of Minutes Spent Total Time Spent with Patient: Total time spent is greater than 50% in coordination of care (as documented) at patient's floor/unit and/or counseling patient: Coding Level of Care Code 57677 Subseq Hosp Care Lvl 2 Diagnoses Acute exacerbation of CHF (congestive heart failure) I50.9 Heart failure type: unspecified Elevated troponin R77.8 Aortic stenosis, severe I35.0 Coronary disease I25.10 (1) Acute exacerbation of CHF (congestive heart failure) Heart failure type: unspecified Qualified Code(s): I50.9 - Heart failure, unspecified
[2021-03-16 06:05] LABS: Hemoglobin 14.3 g/dL (12.0-16.0); Immature Granulocytes # (auto) 0.02 K/uL (0.00-0.02); Immature Granulocytes % (auto) 0.2 %; Lymphocytes % (auto) 8.4 %; Mean Corpuscular Hemoglobin 33.1 pg (25-34); Mean Corpuscular Volume 97.2 fL (80-100); Mean Platelet Volume 9.6 fL (7.4-10.4); Monocytes # (auto) 0.71 K/uL (0.11-0.59); Monocytes % (auto) 6.6 %; Neutrophils % (auto) 84.8 %; Platelet Count 211 K/uL (130-400); RDW Coefficient of Variation 16.1 % (11.5-14.5); RDW Standard Deviation 57.3 fL (36.4-46.3); Red Blood Count 4.32 M/uL (4.2-5.4); White Blood Count 10.73 K/uL (4.8-10.8)
[2021-03-16 06:38] LABS: Albumin Globulin Ratio 0.9 (0.9-2); Albumin Level 3.4 gm/dl (3.4-5.0); BUN Creatinine Ratio 34.8 (10-20); Bilirubin,Total 4.8 mg/dl (0.2-1); Creatinine Clr Calc Pharmacy 39.6 ml/min; Est GFR (African American) 47.7 ml/min; Est GFR (Non-African American) 41.2 ml/min; Globulin 3.7 gm/dl (2.5-4.0); Magnesium 2.6 mg/dl (1.8-2.4); Total Protein 7.1 gm/dl (6.4-8.2)
[2021-03-16] MEDS: ASPIRIN 325 MG ECTAB PO SCH (08:43)
[2021-03-16] MEDS: FUROSEMIDE 40 MG in SYRINGE 0 ML IV SCH ×2 (08:43→17:07)
[2021-03-16] MEDS: METOPROLOL TARTRATE 50 MG TAB PO SCH ×2 (08:43→20:28)
[2021-03-16] MEDS: POTASSIUM CHLORIDE CRTAB 20 MEQ TABCR PO SCH ×3 (08:43→20:28)
[2021-03-16] MEDS: ATORVASTATIN 40 MG TAB PO SCH (08:44)
[2021-03-16] MEDS: TRIAMTERENE/HCTZ 37.5/25MG CAP PO SCH (08:44)
[2021-03-16] MEDS: ENOXAPARIN INJ 30 MG/0.3 ML SYR SQ SCH (08:44)
[2021-03-16] MEDS: CHOLECALCIFEROL 1,000 UNITS 25 MCG TAB PO SCH (08:44)
--- NOTE | 2021-03-16 15:13 | Hospitalist Progress Note ---
Date of Service March 16, 2021 Assessment & Plan (1) Acute exacerbation of CHF (congestive heart failure): Indy De Luna is a 80-year-old female with a PMHx of HFpEF, aortic stenosis with bioprosthetic valve replacement, CAD with chronic total RCA occlusion with collaterals, HTN, and HLD who presented to [facility] emergency department due to worsening shortness of breath and leg swelling. The patient is being managed for a CHF exacerbation. The main culprit of her worsening dyspnea on exertion is likely her severely stenosed bioprosthetic AV valve. She has a scheduled cardiology consult at [facility] on March 18 to discuss TAVR. Ambulatory Dysfunction, multifactorial - Worsening aortic stenosis with deconditioning - On PT evaluation pt recommended for SNF and not safe for discharge home at this time - Anticipate transfer to [facility] [place] [facility] for TAVR evaluation rather than d/c home prior Heart Failure Exacerbation - Elevated BNP > 35k on admission. Echocardiogram (01/30/21): Normal LV size and low-normal function. EF 50-5-5%. Moderate concentric LV hypertrophy. Mild LA dil ation. Severe stenosis of the bioprosthetic AV valve. Mild-moderate MR. Moderate pulmonary HTN - Continue lasix 40mg BID - Cardiology consulted - Low-sodium diet - Dry weight: 197 lbs, pt ~198lbs today Elevated Troponin - Patient has known history of CAD. Cardiac catheterization performed 02/22/21 revealed chronic total RCA occlusion with robust collaterals as well as a heavily calcified, occlusive LCX with 80% stenosis. - ECG: ST and T wave abnormalities in the inferolateral leads. QT prolongation and multiple PVCs - Troponin appears to have peaked, downtrended - no chest pain, low suspicion for ACS today - Continue ASA 325. - Heparin discontinued on 03/15/21. - Nitroglycerin PRN Aortic Stenosis - Patient has severe aortic stenosis with bioprosthetic valve replacement in 2008. - Most recent echo revealed severe stenosis of the bioprosthetic AV valve. - Pending cardiology consult in [place] on March 18 to discuss TAVR Hyperlipidemia - Continue home Atorvastatin 80 mg Hypertension - Continue home Dyazide (Triamterene/HCTZ) Acute Kidney Injury, improving - Elevated Cr of 1.56 with a BUN/Cr ratio of 31.5 - Cr 1.25 today - BMP daily Code Status: Full Code F/E/N: Low-sodium diet. Daily CMP VTE PPx: SCDs. Lovenox Dispo: Medicine with Telemetry (2) Elevated troponin: (3) Elevated brain natriuretic peptide (BNP) level: (4) Hypoxia: (5) Chronic diastolic congestive heart failure: (6) CKD (chronic kidney disease) stage 2, GFR 60-89 ml/min: (7) HTN (hypertension): (8) Aortic stenosis, severe: (9) Pleural effusion: (10) History of aortic valve replacement: (11) Murmur: (12) Coronary disease: Admission and Anticipated Discharge Date Admission Date: March 13, 2021 Supervising Physician Co-Signing Physician Notes Attending attestation Pt seen and examined in concert with Dr. Vinson. In agreement with the documented findings as noted in the resident documentation with any exceptions or additions as noted here. Resting comfortably in bedside chair, tolerating brief transit to washroom. No c/o SOB/pain On examination, S1/S2 nl RRR 2/6 ALONSO. CTAB. Abd NT/ND BS+ve HFpEF w/ severe - cardiology consultation - tolerating furosemide with good UOP. Trend BMP. Continue ASA Ambulatory dysfunction - PT/OT Else see resident documentation as noted. Willy Corbin is seen at the bedside this morning. She reports she feels well, and that her legs look greatly improved from prior. She denies chest pain, difficulty breathing, and pain overnight. She denies increased shortness of breath but endorses some with exertion at occasionally at rest baseline due to her stenosis She reports that she would like to go home if possible before transfer to [place] on Thursday, recognizes that she is weak and may have lost strength which would make it unsafe to do so. No additional questions or concerns at time of morning assessment. Review of Systems Review of Systems: All systems reviewed & are unremarkable except as noted in HPI & below Physical Exam Physical Exam: General: A&Ox3. NAD. Cooperative. HEENT: Atraumatic, normocephalic. Pulm: CTAB A&P. -wheezes, -rales, -rhonchi. Symmetrical chest rise. No increase work of breathing. No respiratory distress. Cardiac: RRR, Systolic murmur at left upper sternal border. Radial pulses intact and symmetrical. Abdominal: Nontender, nondistended, soft. BS present. Extremities: 2+ edema through the calf bilaterally. PT pulses intact and palpable bilaterally. Game Bird Farmer strength 4 -/5 bilaterally, sensation intact in all fingertips to soft touch. Knee flexion/extension 4/5 bilaterally, hip flexion 4 -/5 bilaterally. Sensation intact to soft touch at the ankles. Results & Data Results & Data ([facility]) Vital Signs (Past 12 Hours) Vital Signs Temp Pulse Pulse Resp BP Pulse Ox 03/16/21 14:45 86 03/16/21 12:56 95 03/16/21 11:40 36.7 C 82 18 103/66 92 03/16/21 07:48 36.3 C L 82 18 100/67 92 03/16/21 03:25 36.4 C L 80 16 101/71 94 Resident Activity Tracking Resident Involvement: Resident Care Provided Care Provided: Adult Hospital Medicine (1) Acute exacerbation of CHF (congestive heart failure) Heart failure type: unspecified Qualified Code(s): I50.9 - Heart failure, unspecified (2) HTN (hypertension) Hypertension type: essential hypertension Qualified Code(s): I10 - Essential (primary) hypertension
[2021-03-16] MEDS ORDERED: MoRPHine SULFATE 2 MG/ML CARP IV PRN (20:21)
[2021-03-17 07:09] LABS: BUN Creatinine Ratio 36.6 (10-20); Calcium 8.4 mg/dl (8.5-10.1); Creatinine Clr Calc Pharmacy 41.2 ml/min; Est GFR (African American) 50.1 ml/min; Est GFR (Non-African American) 43.3 ml/min; Potassium 4.5 mmol/L (3.5-5.1)
--- NOTE | 2021-03-17 07:48 | Hospitalist Progress Note ---
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 The patient is being managed for a CHF exacerbation. The main culprit of her worsening dyspnea on exertion is likely her severely stenosed bioprosthetic AV valve. She has a scheduled cardiology consult at [facility] on Thursday, March 18 to discuss TAVR. Ambulatory Dysfunction, multifactorial - Worsening aortic stenosis with deconditioning - On PT evaluation pt recommended for SNF and not safe for discharge home at this time - Anticipate transfer to [facility] for TAVR evaluation rather than d/c home prior Heart Failure Exacerbation - Elevated BNP > 35k on admission. Echocardiogram (01/30/21): Normal LV size and low-normal function. EF 50-55%. Moderate concentric LV hypertrophy. Mild LA dila tion. Severe stenosis of the bioprosthetic AV valve. Mild-moderate MR. Moderate pulmonary HTN. Mean pressure gradient 82, max pressure gradient 132, SILVIO 0.51 cm, peak V2 max 574.9 cm/s. Prior valve area was noted as 0.38 on 02/22 - Continue lasix 40mg BID - Cardiology consulted - Low-sodium diet - 96kg admit to 90.4kg (dry weight ~90kg) Hyponatremia Progressive, 126 today - Suspect hypervolemic hyponatremia 2/2 valvular disease & CHF Thiazide held Serum and urine osmolality, sodium pending - Fluid Restrict 1800cc Elevated Troponin - Patient has known history of CAD. Cardiac catheterization performed 02/22/21 revealed chronic total RCA occlusion with robust collaterals as well as a heavily calcified, occlusive LCX with 80% stenosis. - ECG: ST and T wave abnormalities in the inferolateral leads. QT prolongation and multiple PVCs - Troponin appears to have peaked, downtrended - no chest pain, low suspicion for ACS today - Continue ASA 325. - Heparin discontinued on 03/15/21. - Nitroglycerin PRN Aortic Stenosis - Patient has severe aortic stenosis with bioprosthetic valve replacement in 2008. 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 Daily CMP VTE PPx: SCDs. Lovenox Dispo: Medicine with Telemetry (2) Elevated troponin: (3) Elevated brain natriuretic peptide (BNP) level: (4) Hypoxia: (5) Chronic diastolic congestive heart failure: (6) CKD (chronic kidney disease) stage 2, GFR 60-89 ml/min: (7) HTN (hypertension): (8) Aortic stenosis, severe: (9) Pleural effusion: (10) History of aortic valve replacement: (11) Murmur: (12) Coronary disease: Admission and Anticipated Discharge Date Admission Date: March 13, 2021 Willy Putnam is seen at the bedside this morning. She is in no acute distress. She reports that she had some left lower back pain which improves with positioning and readjustment. She endorses fatigue and shortness of breath with exertion/walking, but is not currently short of breath at rest. She denies chest pain/chest pressure/palpitations. Denies abdominal pain, nausea, vomiting, diarrhea, constipation. Endorses leg swelling that is about the same as prior, no leg pain today or increased swelling. She reports she is anxious to move the next step in her care, but otherwise has no questions or concerns today Review of Systems Review of Systems: All systems reviewed & are unremarkable except as noted in HPI & below Physical Exam Physical Exam: General: A&Ox3. NAD. Cooperative. HEENT: Atraumatic, normocephalic. Thorax: Small, 1 cm, contusion with tenderness to palpation at left lower back/flank. Underlying serratus with increased muscle tone and tender to palpation. No erythema, skin compromise, ulceration, purulence. Pulm: CTAB A&P. -wheezes, -rales, -rhonchi. Symmetrical chest rise. No increase work of breathing. No respiratory distress. Cardiac: RRR, Systolic murmur at left upper sternal border. Radial pulses intact and symmetrical. Abdominal: Nontender, nondistended, soft. BS present. Extremities: 2+ edema through the calf bilaterally. PT pulses intact and palpable bilaterally. Triage Technician strength 4 -/5 bilaterally, sensation intact in all fingertips to soft touch. Knee flexion/extension 4/5 bilaterally, hip flexion 4 -/5 bilaterally. Sensation intact to soft touch at the ankles. Results & Data Results & Data ([facility]) Vital Signs (Past 12 Hours) Vital Signs Temp Pulse Pulse Resp BP Pulse Ox 03/17/21 07:16 36.4 C L 77 18 110/67 91 03/17/21 03:05 36.3 C L 84 18 114/66 94 03/16/21 23:03 75 03/16/21 22:51 36.3 C L 71 16 113/71 94 03/16/21 20:26 85 110/73 (1) Acute exacerbation of CHF (congestive heart failure) Heart failure type: unspecified Qualified Code(s): I50.9 - Heart failure, unspecified (2) HTN (hypertension) Hypertension type: essential hypertension Qualified Code(s): I10 - Essential (primary) hypertension
[2021-03-17] MEDS: FUROSEMIDE 40 MG in SYRINGE 0 ML IV SCH ×2 (07:50→17:08)
[2021-03-17] MEDS: CHOLECALCIFEROL 1,000 UNITS 25 MCG TAB PO SCH (07:51)
[2021-03-17] MEDS: METOPROLOL TARTRATE 50 MG TAB PO SCH (07:51)
[2021-03-17] MEDS: TRIAMTERENE/HCTZ 37.5/25MG CAP PO SCH (07:51)
[2021-03-17] MEDS: ATORVASTATIN 40 MG TAB PO SCH (07:51)
[2021-03-17] MEDS: ASPIRIN 325 MG ECTAB PO SCH (07:51)
[2021-03-17] MEDS: POTASSIUM CHLORIDE CRTAB 20 MEQ TABCR PO SCH ×2 (07:51→13:52)
[2021-03-17] MEDS: ENOXAPARIN INJ 30 MG/0.3 ML SYR SQ SCH (07:52)
[2021-03-17] MEDS ORDERED: LIDOCAINE 5% 1 PATCH TD SCH (09:15)
--- NOTE | 2021-03-17 13:45 | Discharge Summary ---
Date of Service March 17, 2021 Admission HPI Per Admitting Provider 80 YOF with past medical history of Arthritis, bilateral knee replacements, Aortic-bioprosthetic valve replacement (2008), mild mitral regurge, HTN, HLD, obesity. Patient was recently in January for HF exacerbation and confirmation that her prosthetic aortic valve was severely stenosed. She was referred to [facility] for evaluation and she would be a candidate for TAVR, she is to have an appointment on Thursday to get her TAVR, protocol CT scans done and meet with the CT surgeons at that time. She had a cardiac cath done at that time as well with failed PCI to the RCA secondary to complete total occlusion with robust left to right collaterals, heavily calcified LCX with 80% stenosis. Patient called EMS today for worsening dyspnea and worsening of her edema to her lower extremities bilaterally. She is more fatigued appearing than her last visit and she reports that she is not sleeping well secondary to her legs being more swollen, dyspnea, and her chronic back pain. She went camping this week with her family and denies any dietary indiscretion. She had to use the furniture to help her get around in the camper. She has not been having any chest pain, but has been experiencing more dyspnea as above and nausea the past 2 days, which has kept her from eating. In the ER she had a troponin [place] 0.[place] [address]. She was given 80 mg Lasix IV. Her ECG shows sinus rhythm with increase t-wave inversion in her lateral/anterior leads, and flattening of her T waves in V2-V3 and poor r-wave in V3 with comparison to her January ECG. She will be started on heparin drip and admitted to the PCU. I reviewed her case with Dr. Brock over the phone. Cardiology will be consulted to assist with management. Admission Exam Per Admitting Provider PHYSICAL EXAM: General: awake, alert, no apparent distress Head: Normocephalic, atraumatic ENT: PERRL, EOMI, no pharyngeal exudate, mucous membranes moist Neuro: AAO x 3, speech clear and appropriate, strength intact bilaterally 5/5, sensation intact and equal all extremities and dermatomes, no pronator drift Chest: equal rise and fall of the chest, no accessory muscle use, can not lay flat, no heaves or thrills, bilateral scattered crackles to auscultation, on 2lNC Cardiac: Regular rate and rhythm, telemetry reviewed, skin warm dry, cap refill <3 seconds, peripheral pulses +2 no JVD, systolic murmurs best heard at RSB and LSB with radiation to the carotids as well as to the axillae. GI: nausea, NABS x 4 quadrants, soft, nontender to palpation, no rebound, guarding or tenderness : Romeo placed, no pain, no CVA tenderness, Extremities: Normal inspection, no peripheral edema or erythema, calfs nontender to palpation Psych: Normal mood and affect Skin: no rash or erythema Principal Diagnosis Acute on Chronic CHF Severe Aortic Stenosis Discharge Exam General: A&Ox3. NAD. Cooperative. HEENT: Atraumatic, normocephalic. Thorax: Small, 1 cm, contusion with tenderness to palpation at left lower back/flank. Underlying serratus with increased muscle tone and tender to palpation. No erythema, skin compromise, ulceration, purulence. Pulm: CTAB A&P. -wheezes, -rales, -rhonchi. Symmetrical chest rise. No increase work of breathing. No respiratory distress. Cardiac: RRR, Systolic murmur at left upper sternal border. Radial pulses intact and symmetrical. Abdominal: Nontender, nondistended, soft. BS present. Extremities: 2+ edema through the calf bilaterally. PT pulses intact and palpable bilaterally. 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 Knee flexion/extension 4/5 bilaterally, hip flexion 4 -/5 bilaterally. Sensation intact to soft touch at the ankles. Discharge Data Allergies Allergy/AdvReac Type Severity Reaction Status Date / Time No Known Allergies Allergy Unknown PT NOT Verified 03/13/21 15:55 ALLERGIC TO OXYCODONE-HAD BEFORE WITHOUT PROB Consultations 03/13/21 19:15 ED Decision to Admit Stat 03/13/21 23:25 Consult Cardiology Routine Hospital Course (1) Acute exacerbation of CHF (congestive heart failure): Indy De Luna is a 80-year-old female with a PMHx of HFpEF, aortic stenosis with bioprosthetic valve replacement, CAD with chronic total RCA occlusion with collaterals, HTN, and HLD who presented to [facility] emergency department due to worsening shortness of breath and leg swelling. Mrs. De Luna was managed for a CHF exacerbation with worsening dyspnea on exertion likely due to severely stenosed bioprosthetic AV valve. She had a scheduled cardiology consult at [facility] on Thursday, March 18 to discuss TAVR. Due to weakness and worsening of her underlying she was not stable for transfer home, and was functionally limited by fatigue limiting rehab potential. She was transferred directly to [facility] for TAVR/severe evaluation Ambulatory Dysfunction, multifactorial - Worsening aortic stenosis with deconditioning - On PT evaluation pt recommended for SNF and not safe for discharge home at time of transfer - Tranferred to [facility] for TAVR evaluation Heart Failure Exacerbation - Elevated BNP > 35k on admission. Echocardiogram (01/30/21): Normal LV size and low-normal function. EF 50-55%. Moderate concentric LV hypertrophy. Mild LA dilation. Severe stenosis of the bioprosthetic AV valve. Mild-moderate MR. Moderate pulmonary HTN. Mean pressure gradient 82, max pressure gradient 132, SILVIO 0.51 cm, peak V2 max 574.9 cm/s. Prior valve area was also reported as 0.38 on 02/22 - Continue lasix 40mg BID - Cardiology consulted - Low-sodium diet - 96kg admit to 90.4kg (dry weight ~90kg) Aortic Stenosis - Patient has severe aortic stenosis with aortic valve replacement in 2008. 23 mm Mosaic bioprosthetic - Most recent echo revealed severe stenosis - Was pending outpt cardiology consult in [place] on Thursday, March 18 to discuss TAVR History of failed PCI to RCA with total occlusion and collaterals, 80% stenotic LCx, Noted on cath 02/22/21 Hyponatremia Progressive, 126 on day of transfer - Suspect hypervolemic hyponatremia 2/2 valvular disease & CHF Thiazide held Serum and urine osmolality, sodium pending - Fluid Restrict 1800cc Elevated Troponin - Patient has known history of CAD. Cardiac catheterization performed 02/22/21 revealed chronic total RCA occlusion with robust collaterals as well as a heavily calcified, occlusive LCX with 80% stenosis. - ECG: ST and T wave abnormalities in the inferolateral leads. QT prolongation and multiple PVCs - Troponin appear peaked at 0.619, downtrended - No chest pain, low suspicion for ACS - Continue ASA 325. - Heparin discontinued on 03/15/21. - Nitroglycerin PRN Hyperlipidemia - Continued home Atorvastatin 80 mg Hypertension - Dyazide held for hyponatremia as above Acute Kidney Injury, normalized - Elevated Cr of 1.56 with a BUN/Cr ratio of 31.5 on admission, downtrended and Cr ~1.25 at transfer - [facility] daily Code Status: Full Code F/E/N: Low-sodium diet. Daily CMP VTE PPx: SCDs. Lovenox 30mg q24h (2) Elevated troponin: (3) Elevated brain natriuretic peptide (BNP) level: (4) Hypoxia: (5) Chronic diastolic congestive heart failure: (6) CKD (chronic kidney disease) stage 2, GFR 60-89 ml/min: (7) HTN (hypertension): (8) Aortic stenosis, severe: (9) Pleural effusion: (10) History of aortic valve replacement: (11) Murmur: (12) Coronary disease: Total Time Total Time Spent Total Time Spent (In Minutes): See Attending Documentation Discharge Plan Discharge Items Patient Disposition: Transfer Acute [facility] Reason For Visit: HEART FAILURE Discharge Diagnosis: Acute on Chronic CHF Severe Aortic Stenosis Activity: Per Instructions section Non-emergency contact: Primary Care Provider Call non-emergency contact if: you have any medication questions, your symptoms worsen, your pain is not controlled and your pain is worsening Follow-up/Referrals: Chester Garcia III, MD [Primary Care Provider] - Elsie Lowe PA-C [Physician Temporary Help Agency Referral Clerk] - 03/26/21 1:30 pm (Congestive Heart Failure Program Appointment Information Early follow up is essential to managing your heart failure. An appointment has been scheduled for you with the [facility] Heart Failure Program within 7 days of discharge. Anticipate this visit to be 30-60 minutes long. Please expect a farmworker phone call from one of our nurses approximately 48 hours from discharge. They will also be placing an order for lab work to be completed 1-2 days prior to your heart failure follow up appointment. Please be sure to have this done so we can go over the results when you come in. Office Location The cardiology office building is located in front of the hospital at [address] Bring the following with you to your follow-up doctor appointments: Please bring your daily weight log any discharge paperwork all of your medication bottles with you to this visit. 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 The patient is being managed for a CHF exacerbation. The main culprit of her worsening dyspnea on exertion is likely her severely stenosed bioprosthetic AV valve. She has a scheduled cardi ology consult at [facility] on Thursday, March 18 to discuss TAVR. Ambulatory Dysfunction, multifactorial - Worsening aortic stenosis with deconditioning - On PT evaluation pt recommended for SNF and not safe for discharge home at time of transfer - Tranferred to [facility] for TAVR evaluation Heart Failure Exacerbation - Elevated BNP > 35k on admission. Echocardiogram (01/30/21): Normal LV size and low-normal function. EF 50-55%. Moderate concentric LV hypertrophy. Mild LA dilation. Severe stenosis of the bioprosthetic AV valve. Mild-moderate MR. Moderate pulmonary HTN. Mean pressure gradient 82, max pressure gradient 132, SILVIO 0.51 cm, peak V2 max 574.9 cm/s. Prior valve area was also reported as 0.38 on 02/22 - Continue lasix 40mg BID - Cardiology consulted - Low-sodium diet - 96kg admit to 90.4kg (dry weight ~90kg) Hyponatremia Progressive, 126 on day of transfer - Suspect hypervolemic hyponatremia 2/2 valvular disease & CHF Thiazide held Serum and urine osmolality, sodium pending - Fluid Restrict 1800cc Elevated Troponin - Patient has known history of CAD. Cardiac catheterization performed 02/22/21 revealed chronic total RCA occlusion with robust collaterals as well as a heavily calcified, occlusive LCX with 80% stenosis. - ECG: ST and T wave abnormalities in the inferolateral leads. QT prolongation and multiple PVCs - Troponin appear peaked at 0.619, downtrended - No chest pain, low suspicion for ACS - Continue ASA 325. - Heparin discontinued on 03/15/21. - Nitroglycerin PRN Aortic Stenosis - Patient has severe aortic stenosis with aortic valve replacement in 2008. 23 mm Mosaic bioprosthetic - Most recent echo revealed severe stenosis - Was pending outpt cardiology consult in [place] on Thursday, March 18 to discuss TAVR History of failed PCI to RCA with total occlusion and collaterals, 80% stenotic LCx, Noted on cath 02/22/21 Hyperlipidemia - Continued home Atorvastatin 80 mg Hypertension - Dyazide held for hyponatremia as above Acute Kidney Injury, normalized - Elevated Cr of 1.56 with a BUN/Cr ratio of 31.5 on admission, downtrended and Cr ~1.25 at transfer - [facility] daily Code Status: Full Code F/E/N: Low-sodium diet. Daily CMP VTE PPx: SCDs. Lovenox 30mg q24h Pending Studies at Discharge: No Stand-Alone Forms: [facility] Skilled Items Patient informed of condition?: Yes DNR: No Discharge Level of Care: Other Communicable Disease: No Discharge Prognosis: Stable Lines: Peripheral IV Urinary Catheter: No Medications and DC Order Prescriptions: Continued atorvastatin 80 mg tablet 80 mg PO DAILY Qty: 90 RF: 3 potassium gluconate 595 mg (99 mg) tablet 595 mg PO DAILY Qty: 30 RF: 2 cranberry 400 mg capsule 400 mg PO DAILY RF: 0 multivitamin [Daily Multi-Vitamin] tablet 1 tab PO DAILY RF: 0 coenzyme Q10 100 mg capsule 100 mg PO DAILY RF: 0 aspirin 325 mg tablet 325 mg PO DAILY RF: 0 cholecalciferol (vitamin D3) 1,000 unit capsule 1,000 units PO DAILY RF: 0 metoprolol tartrate 50 mg Tablet 50 mg PO BID Qty: 60 RF: 0 furosemide [Lasix] 40 mg tablet 40 mg PO DAILY RF: 0 Discharge Orders: Discharge Order (Routine); Ordered 03/17/21 Ordered By: Ivan Vinson Admission Data Admit Date/Time: 03/13/21 20:46 Attending Provider: Christian Carrasco Admit Provider: Iris Jones Primary Care Provider: Chester Garcia III Other Providers: Iris Jones ; Christian Brock Supervising Physician Co-Signing Physician Notes Attending attestation Pt seen and examined in concert with Dr. Vinson. In agreement with the documented findings as noted in the resident documentation with any exceptions or additions as noted here. Ongoing complaint of shortness of breath with any activity and with persistent LE edema and fatigue. On examination, S1/S2 nl RRR 2/6 ALONSO. CTAB. Abd NT/ND BS+ve HFpEF w/ exacerbation in the setting of severe - cardiology consultation - will require transition to tertiary center for definitive care based on continued dysfunction and unsuitability for transfer from hospital to outside facility. Tolerated furosemide diuresis at 40mg IV BID Hyponatremia - hold thiazide. follow up urine labs for transition though likely associated with HF and and should improve. Continue fluid/sodium restrict. ABDIRIZAK - 1.56 --> 1.25 during diuresis Ambulatory dysfunction - PT/OT Else see resident documentation as noted. Total attending time spent with this case on the day of discharge: 35 minutes. Resident Activity Tracking Resident Involvement: Resident Care Provided Care Provided: Adult Hospital Medicine
[2021-03-17] MEDS ORDERED: DICLOFENAC SOD 1% GEL 100 GM TUBE EXT SCH (14:00)
[2021-03-17] MEDS ORDERED: Nursing to Pharmacy Communication SCH (17:15)
== END 2021-03-17 18:54 | disposition short-term general hospital (02) | DRG 291 ==
LOC: ED 15:31 → 2S 20:46 → SUATTDRO 20:46 → 2S 22:47

== ENCOUNTER 2024-03-08 15:32 | Inpatient (IN) ==
--- NOTE | 2024-03-08 15:38 | ED Triage Note ---
Date of Service March 08, 2024 Provider in Triage Author: Lisandra Partida History of Present Illness This patient was briefly evaluated while in triage. An abbreviated physical exam was performed. This patient is a 83-year-old Female who presents to the ED for evaluation of "I hurt all over and I guess breathing problems." Pt. states she feels that she is breathing okay, but [facility] walk-in clinic felt she was having difficulty breathing and gave a nebulizer treatment then referred to the ED for oxygen. Pt. was seen at the walk-in clinic due to fever, weakness, pain everywhere, and feels she may be somewhat short of breath. The patient did slip on the steps this morning. Pt. didn't take her "fluid pill" for 2 days. Physical Exam VITALS: Vitals are noted on the nurse's note and reviewed by myself. GENERAL: This is an 83 year old female, in no acute distress, nondiaphoretic, well-developed well-nourished. SKIN: No obvious rashes, edema, erythema HEAD: Normocephalic atraumatic. EYES: Conjunctivae without injection, sclerae without icterus. NECK: No JVD. LUNGS: No retractions or accessory muscle use. MUSCULOSKELETAL: Normal gait with a walker NEURO: Patient was alert and oriented to person place and time. No focal neurological deficits. Initial orders for labs and / or imaging were placed and patient was placed in the waiting area until a bed is available. Please see further documentation for the full ED course.
--- NOTE | 2024-03-08 16:11 | Emergency Department Note ---
Impression & Plan Hypoxia ADMIT ED Provider Note HPI: History obtained from patient. The patient is a 83-year-old female who presents the emergency department with a chief complaint of dyspnea, body aches, and nausea that has been ongoing for the past 2 weeks. Patient was seen earlier today at [facility] and was sent to the ER for evaluation over concern for wheezing with borderline oxygen saturation. On my evaluation here in the ED the patient is comfortable appearing at rest, she does not display any tachypnea or significant increased work of breathing. On arrival patient was documented with an oxygen saturation of 90% on room air, she is not tachypneic, she is afebrile on arrival. Patient denies any chest pain, denies any abdominal pain, denies any current nausea. Patient states she has had a persistent cough. ROS: - Per HPI Differential Diagnosis: Acute bronchospasm, COPD exacerbation, asthma exacerbation, pneumonia, pleural effusion, viral upper respiratory infection with cough, acute coronary syndrome, pulmonary embolism, amongst other potential pathologies. *Outpatient medications and allergy history reviewed. PE: General: Alert HEENT: Normocephalic, trachea midline Eyes: Extraocular eye movement is intact, no scleral erythema Pulmonary: Diminished breath sounds bilaterally without wheezing or crackles Cardio: Regular rate and rhythm GI: Abdomen is soft to palpation : No suprapubic tenderness MSK: No evidence of trauma or malformation of the extremities, no edema Skin: No evidence of rash Neuro: Alert, no focal deficits Psychiatric: Cooperative INDEPENDENT INTERPRETATIONS: quality assurance monitor chassis: (As interpreted by myself): - An order was placed for continuous cardiac monitoring - Patient was noted to be in sinus rhythm with a rate of 95 EKG: (As interpreted by myself): Rate: 88 Rhythm: Normal sinus rhythm Intervals: Within normal limits ST changes: No ST elevation Time: 0345 PM Chest x-ray: (As interpreted by myself): Pulmonary vascular congestion Interventions provided in ED: -Doxycycline, IV Lasix Medical Decision Making: IV was established and lab work obtained, patient was placed on secured entrance monitor. Patient was placed on nasal cannula oxygen for hypoxia at 88% on room air with good improvement on nasal cannula 2 L. Lab work shows a mild leukopenia at 4.65, hemoglobin is also low but stable at 11.5, platelet count is low at 95 which does appear to be an acute finding for the patient. Venous blood gas shows a normal pH without hypercarbia. CMP shows mild hyponatremia at 130, potassium is normal, no evidence of acute kidney injury, lactic acid is slightly elevated at 2.6, bilirubin is elevated at 4.1 which appears to be chronic and there is a mild transaminitis that is new with AST of 68, ALT of 53, alk phos of 141. Patient does not have any abdominal pain therefore low suspicion for acute biliary pathology. High-sensitivity troponin level is elevated at 86.5. Patient denies any chest pain, EKG per my interpretation does not show any acute ischemic changes. Low suspicion for ACS. I was notified by the lab that on peripheral smear the patient appears to have inclusions concerning for anaplasmosis. Testing was therefore added and the patient was also positive for Lyme. This is consistent with the patient's mild transaminitis as well as her thrombocytopenia that appears to be acute. I discussed this with the patient, she is not aware of any recent tick bite or rash. She was treated prophylactically with doxycycline. Patient's chest x-ray is concerning for pulmonary vascular congestion, I believe this is more likely the source of her hypoxia. Patient was given IV Lasix here in the ED. She states she had not been taking her Lasix over the past 2 days because "I got my medications mixed up". I discussed admission with the patient and her family member at the bedside, they are in agreement, case was discussed with the on-call [facility] hospitalist service and the patient was placed for admission in stable condition for further care. Consultants/Discussions held with other healthcare providers: -Hospitalist, Dr. Vinson Disposition discussion held by myself with: -Patient and daughter at bedside * CRITICAL CARE TIME: ( 35 ) minutes -Stabilization of patient with hypoxia at 88% on room air requiring nasal cannula oxygen/supplemental oxygen for correction, time spent at the bedside, interpretation of diagnostic studies including EKG and chest x-ray, discussion with other healthcare providers and arrangement of admission. Diagnosis: 1. Hypoxia, acute 2. Pulmonary vascular congestion, acute 3. Anaplasma positive, acute 4. Lyme testing positive, acute 5. Transaminitis, acute 6. Thrombocytopenia, acute 7. Leukopenia, acute Disposition: Admission Karsten Maier DO Emergency Medicine Past Med/Surg History Problem List (Updated 03/08/24 @ 21:46 by Karsten Maier DO) Hypoxia (Acute) Hyponatremia Lactate blood increased Elevated troponin Atrial fibrillation Acute on chronic heart failure with preserved ejection fraction Hypoxia Elevated LFTs Thrombocytopenia History of aortic valve replacement 2008, Dr Quintero, [facility] Murmur Aortic stenosis, severe (Acute) HTN (hypertension) Hypercholesterolemia CKD (chronic kidney disease) stage 2, GFR 60-89 ml/min Chronic diastolic congestive heart failure Coronary disease 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 Osteopenia Medical History Arthritis CKD (chronic kidney disease) stage 2, GFR 60-89 ml/min HLD (hyperlipidemia) HTN (hypertension) Hypercholesterolemia Hypokalemia Hypoxia Medicare annual wellness visit, subsequent NSTEMI (non-ST elevated myocardial infarction) Renal insufficiency Spinal stenosis Surgical History History of tubal ligation History of total knee arthroplasty Hx of repair of rotator cuff History of cataract surgery History of back surgery History of aortic valve replacement Family History Mother Coronary heart disease Father Malignant neoplasm of pancreas Denies family history of Ovarian cancer Prostate cancer Myocardial infarction Breast cancer Colorectal cancer Social History (Updated 12/11/23 @ 14:03 by Asmita Mix) Smoking Status: Former smoker Tobacco Type: Cigarettes Age Started Using Tobacco: 15; Age Quit Using Tobacco: 52; packs per day: 1; Cigarettes Per Day: 20; Second Hand Exposure: No; Do You Dip or Chew Tobacco: No; Hx Alcohol Use: No Hx Substance Use: No Preferred Language: [place] Communication Ability: Effective Visual Impairment: No Limitations Hearing Ability: Normal Criminology Teacher Required: No Beliefs That Will Affect Care: None marital status: Life Partner Current Living Situation: Spouse Current Living Situation Comment: with Partner Filippo Richter current occupational status: retired Other Information That Helps Us Care for You: No Feels Safe at Home: Yes Safety Concerns: Feels Safe At This Time Childhood Exposure to Second-Hand Smoke: No Diet: low salt and regular caffeine: Yes Dental Care, Regularly: No Physical Activity Frequency: Other Seatbelt Use: always Sunscreen Use: Yes Assistive Devices: Denture - Upper, Denture - Lower, Glasses and Walker Allergies Allergies Allergy/AdvReac Type Severity Reaction Status Date / Time No Known Allergies Allergy Unknown PT NOT Verified 03/08/24 17:02 ALLERGIC TO OXYCODONE-HAD BEFORE WITHOUT PROB Home Meds Home Medications Medication Instructions Recorded Confirmed multivitamin (Daily Multi-Vitamin 1 tab PO DAILY 05/24/19 03/08/24 tablet) acetaminophen 325 mg capsule 650 mg PO Q4H PRN Pain 04/09/21 03/08/24 cholecalciferol (vitamin D3) 25 0 mcg PO DAILY 03/08/24 03/08/24 mcg (1,000 unit) capsule (Vitamin D3) Previous Rx's Medication Instructions Recorded aspirin 81 mg tablet,delayed 81 mg PO DAILY #90 tabs 07/15/22 release metoprolol tartrate 25 mg tablet 25 mg PO BID #90 tabs 02/17/23 potassium chloride 20 mEq 60 meq (3 x 20 mEq) PO DAILY #270 07/23/23 tablet,extended release tabs apixaban 5 mg tablet (Eliquis) 5 mg PO BID #180 tabs 11/30/23 atorvastatin 80 mg tablet 80 mg PO HS #90 tabs 01/14/24 furosemide 40 mg tablet (Lasix) 80 mg (2 x 40 mg) PO DAILY #180 02/15/24 tabs Results & Data (ED) Vital Signs Vital Signs - 24 hr 03/08/24 15:36 03/08/24 16:35 03/08/24 16:35 Temperature 36.4 C L Temperature Source Oral Pulse Rate 90 77 Pulse Rate [Apical] 77 Pulse Rate from SpO2 Sensor Pulse Rhythm Regular Pulse Rhythm [Apical] Regular Pulse Strength [Apical] Normal Respiratory Rate 16 20 20 Respiratory Effort / Characteristics Non-Labored Non-Labored Spontaneous Respiratory Depth Normal Normal Respiratory Pattern Regular Blood Pressure 116/61 Blood Pressure [Right Arm] 136/61 Blood Pressure Mean 79 Blood Pressure Mean [Right Arm] 86 Blood Pressure Position [Right Arm] Sitting Pulse Oximetry 90 89 L 89 L Oxygen Delivery Method Room Air Room Air Room Air Oxygen Flow Rate Sepsis Recent Fever Within 48 Hours No Sepsis New/Unexplained Change in Mental Status N/A Sepsis Action Taken by Nursing No Action Required Oxygen Flow Rate - Titration Pulse Oximetry Post Tiitration 03/08/24 16:35 03/08/24 17:00 03/08/24 17:07 Temperature Temperature Source Pulse Rate 78 Pulse Rate [Apical] 78 Pulse Rate from SpO2 Sensor Pulse Rhythm Pulse Rhythm [Apical] Regular Pulse Strength [Apical] Normal Respiratory Rate 20 Respiratory Effort / Characteristics Non-Labored Spontaneous Respiratory Depth Normal Respiratory Pattern Regular Blood Pressure Blood Pressure [Right Arm] 117/54 L Blood Pressure Mean Blood Pressure Mean [Right Arm] 75 Blood Pressure Position [Right Arm] Sitting Pulse Oximetry 89 L 98 Oxygen Delivery Method Nasal Cannula Nasal Cannula Oxygen Flow Rate 0 2 Sepsis Recent Fever Within 48 Hours Sepsis New/Unexplained Change in Mental Status Sepsis Action Taken by Nursing Oxygen Flow Rate - Titration 2 Pulse Oximetry Post Tiitration 98 03/08/24 17:30 Temperature Temperature Source Pulse Rate 78 Pulse Rate [Apical] Pulse Rate from SpO2 Sensor 79 Pulse Rhythm Pulse Rhythm [Apical] Pulse Strength [Apical] Respiratory Rate 24 Respiratory Effort / Characteristics Respiratory Depth Respiratory Pattern Blood Pressure 112/54 L Blood Pressure [Right Arm] Blood Pressure Mean 73 Blood Pressure Mean [Right Arm] Blood Pressure Position [Right Arm] Pulse Oximetry 97 Oxygen Delivery Method Nasal Cannula Oxygen Flow Rate 2 Sepsis Recent Fever Within 48 Hours Sepsis New/Unexplained Change in Mental Status Sepsis Action Taken by Nursing Oxygen Flow Rate - Titration Pulse Oximetry Post Tiitration Laboratory Data 03/08/24 15:48 03/08/24 15:48 Lab Results 03/08/24 03/08/24 Range/Units 15:48 16:39 WBC 4.65 L (4.8-10.8) K/ul RBC 3.59 L (4.20-5.40) M/uL Hgb 11.5 L (12.0-16.0) g/dl Hct 34.2 L (37.0-47.0) % MCV 95.3 (80.0-100.0) fL MCH 32.0 (25.0-34.0) pg MCHC 33.6 (32.0-36.0) g/dL RDW Std Deviation 53.4 H (36.4-46.3) fL RDW Coeff of Lynnette 15.3 H (11.5-14.5) % Plt Count 95 L (130-400) K/uL MPV 10.7 (9.4-12.4) fL Immature Gran % (Auto) 0.4 % Neut % (Auto) 80.2 % Lymph % (Auto) 12.5 % Dewey % (Auto) 6.7 % Eos % (Auto) 0.0 % Baso % (Auto) 0.2 % Neut # (Auto) 3.73 (1.40-6.50) K/uL Lymph # (Auto) 0.58 L (1.20-3.40) K/uL Dewey # (Auto) 0.31 (0.11-0.59) K/uL Eos # (Auto) 0.00 (0.00-0.50) K/uL Baso # (Auto) 0.01 (0.00-0.20) K/uL Immature Gran # (Auto) 0.02 (0.01-0.20) K/uL Toxic Vacuolation 1+ Platelet Estimate Decreased L (Normal) Polychromasia 1+ Echinocytes 1+ PT 13.0 H (9.0-12.0) Seconds INR 1.2 H (0.9-1.1) APTT 48 H (21-31) Seconds PTT Ratio 1.8 Sodium 130 L (136-145) mmol/L Potassium 4.6 (3.5-5.1) mmol/L Chloride 94 L (98-107) mmol/L Carbon Dioxide 23 (21-32) mmol/L Anion Gap 13 H (3-11) BUN 16 (6-23) mg/dl Creatinine 0.90 (0.6-1.2) mg/dl Est Cr Clr Drug Dosing 55.0 ml/min Est GFR ( Amer) 69.5 ml/min Est GFR (Non-Af Amer) 60.0 ml/min BUN/Creatinine Ratio 17.8 (10-20) Glucose 131 H (70-99(Fasting)) mg/dl Calcium 8.7 (8.6-10.3) mg/dl Magnesium 2.0 (1.7-2.4) mg/dl Total Bilirubin 4.1 H (0.2-1.0) mg/dl AST 68 H (13-39) U/L ALT 53 H (7-52) U/L Alkaline Phosphatase 141 H (34-104) U/L Troponin I High Sens 86.5 H* (0-14) pg/ml Total Protein 7.1 (6.0-8.3) gm/dl Albumin 3.4 (3.4-5.0) gm/dl Globulin 3.7 (2.5-4.0) gm/dl Albumin/Globulin Ratio 0.9 (0.9-2) Adenovirus (PCR) Not Detected (NotDetected) Anaplasma Smear See Comment A Babesia Smear See Comment B. pertussis DNA (PCR) Not Detected (NotDetected) B.parapertussis DNA PCR Not Detected (NotDetected) Lyme Disease Screen Positive H (Negative) Lyme Disease IgG Ab Negative (Negative) Lyme Disease IgM Ab Negative (Negative) C. pneumoniae DNA (PCR) Not Detected (NotDetected) Coronavirus OC43 (PCR) Not Detected (NotDetected) Coronavirus HKU1 (PCR) Not Detected (NotDetected) Coronavirus 229E (PCR) Not Detected (NotDetected) SARS-CoV-2 (PCR) Not Detected (NotDetected) Coronavirus NL63 (PCR) Not Detected (NotDetected) Human Metapneumovir PCR Not Detected (NotDetected) Influenza Type A (PCR) Not Detected (NotDetected) Influenza Type B (PCR) Not Detected (NotDetected) M. pneumoniae (PCR) Not Detected (NotDetected) Parainfluenza 1 (PCR) Not Detected (NotDetected) Parainfluenza 2 (PCR) Not Detected (NotDetected) Parainfluenza 3 (PCR) Not Detected (NotDetected) Parainfluenza 4 (PCR) Not Detected (NotDetected) RSV (PCR) Not Detected (NotDetected) Entero/Rhino (PCR) Not Detected (NotDetected) Administered Medications Discontinued Medications Doxycycline Hyclate (Doxycycline Hyclate 100 Mg Cap) 100 mg PO NOW STA Stop: 03/08/24 17:28 Last Admin: 03/08/24 18:06 Dose: 100 mg Documented By: KEELEY Furosemide (Furosemide 40 Mg/4 Ml Vial) 40 mg IV ONE ONE Stop: 03/08/24 17:28 Last Admin: 03/08/24 18:06 Dose: 40 mg Documented By: KEELEY Imaging Data Radiologist's Impression: Chest X-Ray 03/08/24 15:39 XR chest 2V PA/lateral HISTORY: 83 years-old Female dyspnea, fever acute shortness of breath COMPARISON: 12/24/2022 TECHNIQUE: PA and lateral views of the chest FINDINGS: Cardiomegaly. Prior median sternotomy with aortic endograft. Atherosclerosis of the aorta. No pneumothorax, large pleural effusion, lobar airspace consolidation or overt pulmonary edema. Pulmonary vascular congestion. Chronic interstitial coarsening. Degenerative changes of the shoulders and spine. Partially imaged lumbar spinal fusion hardware. IMPRESSION: Cardiomegaly with pulmonary vascular congestion. ACT 112: Negative or not required by law. The above report was generated using voice recognition software. It may contain grammatical, syntax or spelling errors. Electronically signed by: Syd Avila M.D. 03/08/2024 5:03 PM Discharge Plan Visit Data Chief Complaint: Referred by Doctor Stated Complaint: XRAYS ED Provider: Karsten Maier Discharge Problem: Hypoxia Patient Disposition: Admitted As Inpatient Discharge Instructions Interventions: ED Discharge Assessment Last Done: 03/08/24 20:56
[2024-03-08 16:26] LABS: Albumin Globulin Ratio 0.9 (0.9-2); Albumin Level 3.4 gm/dl (3.4-5.0); BUN Creatinine Ratio 17.8 (10-20); Bilirubin,Total 4.1 mg/dl (0.2-1.0); Calcium 8.7 mg/dl (8.6-10.3); Est GFR (African American) 69.5 ml/min; Globulin 3.7 gm/dl (2.5-4.0); Potassium 4.6 mmol/L (3.5-5.1); Total Protein 7.1 gm/dl (6.0-8.3)
[2024-03-08 16:35] LABS: Hematocrit (blood only) 34.2 % (37.0-47.0); Hemoglobin 11.5 g/dl (12.0-16.0); Mean Corpuscular Hgb Conc 33.6 g/dL (32.0-36.0); Mean Corpuscular Volume 95.3 fL (80.0-100.0); Mean Platelet Volume 10.7 fL (9.4-12.4); Platelet Count 95 K/uL (130-400); RDW Coefficient of Variation 15.3 % (11.5-14.5); RDW Standard Deviation 53.4 fL (36.4-46.3); Red Blood Count 3.59 M/uL (4.20-5.40); Troponin I High Sensitivity 86.5 pg/ml (0-14); White Blood Count 4.65 K/ul (4.8-10.8)
[2024-03-08 16:46] LABS: INR 1.2 (0.9-1.1); Partial Thromboplastin Ratio 1.8; Partial Thromboplastin Time 48 Seconds (21-31)
[2024-03-08 17:04] LABS: Basophils # (auto) 0.01 K/uL (0.00-0.20); Basophils % (auto) 0.2 %; Echinocytes 1+; Immature Granulocytes # (auto) 0.02 K/uL (0.01-0.20); Immature Granulocytes % (auto) 0.4 %; Lymphocytes # (auto) 0.58 K/uL (1.20-3.40); Lymphocytes % (auto) 12.5 %; Monocytes # (auto) 0.31 K/uL (0.11-0.59); Monocytes % (auto) 6.7 %; Neutrophils # (auto) 3.73 K/uL (1.40-6.50); Neutrophils % (auto) 80.2 %; Platelet Estimate Decreased (Normal); Polychromasia 1+; Toxic Vacuolation 1+
--- NOTE | 2024-03-08 17:05 | XRay Report ---
XR chest 2V PA/lateral HISTORY: 83 years-old Female dyspnea, fever acute shortness of breath COMPARISON: 12/24/2022 TECHNIQUE: PA and lateral views of the chest FINDINGS: Cardiomegaly. Prior median sternotomy with aortic endograft. Atherosclerosis of the aorta. No pneumot horax, large pleural effusion, lobar airspace consolidation or overt pulmonary edema. Pulmonary vascu lar congestion. Chronic interstitial coarsening. Degenerative changes of the shoulders and spine. [place] imaged lumbar spinal fusion hardware. IMPRESSION: Cardiomegaly with pulmonary vascular congestion. ACT 112: Negative or not required by law. The above report was generated using voice recognition software. It may contain grammatical, syntax o r spelling errors. Electronically signed by: Syd Avila M.D. 03/08/2024 5:03 PM
[2024-03-08 17:44] LABS: Adenovirus PCR Not Detected (NotDetected); Bordetella parapertussis PCR Not Detected (NotDetected); Bordetella pertussis PCR Not Detected (NotDetected); Chlamydia pneumoniae PCR Not Detected (NotDetected); Coronavirus 229E PCR Not Detected (NotDetected); Coronavirus CoV-2 (COVID19)PCR Not Detected (NotDetected); Coronavirus HKU1 PCR Not Detected (NotDetected); Coronavirus NL63 PCR Not Detected (NotDetected); Coronavirus OC43PCR Not Detected (NotDetected); Human Metapneumovirus PCR Not Detected (NotDetected); Influenza A PCR Not Detected (NotDetected); Influenza B PCR Not Detected (NotDetected); Mycoplasma pneumoniae PCR Not Detected (NotDetected); Parainfluenza Virus 1 PCR Not Detected (NotDetected); Parainfluenza Virus 2 PCR Not Detected (NotDetected); Parainfluenza Virus 3 PCR Not Detected (NotDetected); Parainfluenza Virus 4 PCR Not Detected (NotDetected); Respiratory Syncytial VirusPCR Not Detected (NotDetected); Rhinovirus/Enterovirus PCR Not Detected (NotDetected)
--- NOTE | 2024-03-08 17:48 | History & Physical Report ---
Date of Service March 08, 2024 Assessment & Plan (1) Hypoxia: Plan: -Admit to med/tele -Currently stable on 2L NC and non-toxic appearing -Presented to the ED earlier today from urgent care for hypoxia -Noted to have Cardiomegaly with pulmonary vascular congestion, JVD, BL pitting edema in the ED -Likely due to acute on chronic heart failure with preserved EF exacerbation as she did not take her home lasix over the past 48 hours due to forgetting -Weight is up approximately 10 lbs since december -S/P 40 mg IV lasix in the ED, will continue with 40 mg IV BID17 for now -Incentive spirometry, flutter therapy, prn O2 to keep SpO2 at or above 92% -Daily weights -Home Eliquis for DVT PPX -HH diet with 2gm sodium and 1800 fluid restriction for now (2) Thrombocytopenia: Plan: -Platelets of 95 today, no signs of bleeding -Likely due to anaplasmosis as initial screen shows intracytoplasmic neutrophilic inclusions -Patient denies abdominal pain, no signs of icterus of jaundice -Will obtain RUQ US for for further evaluation -S/P one dose of doxycycline in the ED, will continue BID at this time -Follow infectious workup -Will continue Eliquis and aspirin at this time as she is currently in afib, has previous coronary artery stents, is without bleeding, and with stable Hgb (3) Elevated LFTs: Plan: -Likely due to tick borne illness -Denies abd pain, nausea, vomiting diarrhea -Follow RUQ US ordered on admission -Avoid nephrotoxic agents -Monitor am CMP (4) Acute on chronic heart failure with preserved ejection fraction: Plan: -See hypoxia (5) Lactate blood increased: Plan: -Lactate ordered on admission is 2.6 -AG of 13 with bicarb WNL, VBG WNL -Patient has been stable and non-toxic appearing -Likely due to poor perfusion due to reduced cardiac output from CHF exacerbat ion -Continue current treatment of CHF exacerbation -Monitor repeat lactate (6) Hyponatremia: Plan: -Sodium of 130 today -Multiple possible etiologies including volume overload due to CHF exacerbation, possible SIADH from likely tick borne illness, and recent poor PO intake -Given 40 mg IV lasix in the ED -Will obtain serum/urine osmolality, and urine sodium for further evaluation -Monitor am electrolytes (7) Elevated troponin: Plan: -Initial high sen trop of 86 -Patient denies chest pain -No acute ECG changes -Likely due to demand from acute CHF exacerbation -Two hour high sen trop is in process -Continue to monitor on tele -Will trend high sen trop q6h overnight -Will obtain TTE tomorrow (8) HTN (hypertension): Plan: -Stable -Continue metoprolol and IV diuresis (9) Coronary disease: Plan: -Denies chest pain -No acute ECG changes -Continue aspirin, metoprolol, and plavix (10) Atrial fibrillation: Plan: -In rate controlled afib on admission -Continue metoprolol and eliquis for now -Monitor for bleeding while on Eliquis Plan The patient was discussed with Dr. Vinson at the time of the admission History of Present Illness Chief Complaint: SOB, hypoxia Primary Care Provider: Teresa Disla MD Edita is an 83 year old female with a PMH significant for hypertension, hypercholesterolemia, paroxysmal atrial fibrillation (on Eliquis), valvular heart disease (bioprosthetic AVR, November 2008; TAVR February 2021), HFpEF, and CAD (LCx stent x2, February 2021) who presented to the [facility] ED on 03/08/24 at the recommendation of her Urgent Care provider due to concerns of hypoxia on RA. On arrival to the ED she was noted to be hypoxic at 89% on RA but otherwise stable. Labs were significant for a WBC of 4.65, platelet count of 95, AG of 13 with bicarb WNL, sodium of 130, total bili of 4.1, AST of 68, ALT of 53, alk phos of 141, initial high sen trop of 86, with full respiratory biofire in process and initial tick borne panel noting intracytoplasmic neutrophilic inclusions. Pror to admission the patient was given 40 mg IV lasix and 100 mg PO Doxycycline. At the time of the exam the patient was sitting in bed in no acute distress with her daughter bedside, history was obtained from both. She states that she has been feeling generally unwell over the past 2 weeks. Fatigue, body aches, increased SOB, and a productive cough with white sputum. She states that she did not take her 80 mg PO lasix over the past 2 days as she forgot during the day and did not want to take it at night. Denies recent fever, chills, chest pain, palpitations, hemoptysis, abd pain, nausea, vomiting, diarrhea, dysuria, hematuria, melena, and recent trauma. She has had multiple tick bites in the past year but was never tested for lyme or other tick borne illnesses. She is a full code and her daughter is her POA. Please refer to Dr. Vinson's attestation for any changes to the treatment plan Allergies Allergy/AdvReac Type Severity Reaction Status Date / Time No Known Allergies Allergy Unknown PT NOT Verified 03/08/24 17:02 ALLERGIC TO OXYCODONE-HAD BEFORE WITHOUT PROB Home Medications Medication Instructions Recorded Confirmed Type multivitamin (Daily Multi-Vitamin 1 tab PO DAILY 05/24/19 03/08/24 History tablet) acetaminophen 325 mg capsule 650 mg PO Q4H PRN Pain 04/09/21 03/08/24 History aspirin 81 mg tablet,delayed 81 mg PO DAILY #90 tabs 07/15/22 03/08/24 Rx release metoprolol tartrate 25 mg tablet 25 mg PO BID #90 tabs 02/17/23 03/08/24 Rx potassium chloride 20 mEq 60 meq (3 x 20 mEq) PO DAILY #270 07/23/23 03/08/24 Rx tablet,extended release tabs apixaban 5 mg tablet (Eliquis) 5 mg PO BID #180 tabs 11/30/23 03/08/24 Rx atorvastatin 80 mg tablet 80 mg PO HS #90 tabs 01/14/24 03/08/24 Rx furosemide 40 mg tablet (Lasix) 80 mg (2 x 40 mg) PO DAILY #180 02/15/24 03/08/24 Rx tabs cholecalciferol (vitamin D3) 25 0 mcg PO DAILY 03/08/24 03/08/24 History mcg (1,000 unit) capsule (Vitamin D3) Past Med/Surg History Problem List (Updated 03/08/24 @ 18:38 by Jim Prieto PA-C) Hyponatremia Lactate blood increased Elevated troponin Atrial fibrillation Acute on chronic heart failure with preserved ejection fraction Hypoxia Elevated LFTs Thrombocytopenia History of aortic valve replacement 2008, Dr Quintero, [facility] Murmur Aortic stenosis, severe (Acute) HTN (hypertension) Hypercholesterolemia CKD (chronic kidney disease) stage 2, GFR 60-89 ml/min Chronic diastolic congestive heart failure Coronary disease 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 Osteopenia Medical History Arthritis CKD (chronic kidney disease) stage 2, GFR 60-89 ml/min HLD (hyperlipidemia) HTN (hypertension) Hypercholesterolemia Hypokalemia Hypoxia Medicare annual wellness visit, subsequent NSTEMI (non-ST elevated myocardial infarction) Renal insufficiency Spinal stenosis Surgical History History of tubal ligation History of total knee arthroplasty Hx of repair of rotator cuff History of cataract surgery History of back surgery History of aortic valve replacement Family History Mother Coronary heart disease Father Malignant neoplasm of pancreas Denies family history of Ovarian cancer Prostate cancer Myocardial infarction Breast cancer Colorectal cancer Social History (Updated 12/11/23 @ 14:03 by Asmita Mix) Smoking Status: Former smoker Tobacco Type: Cigarettes Age Started Using Tobacco: 15; Age Quit Using Tobacco: 52; packs per day: 1; Cigarettes Per Day: 20; Second Hand Exposure: No; Do You Dip or Chew Tobacco: No; Hx Alcohol Use: No Hx Substance Use: No Preferred Language: Finnish Communication Ability: Effective Visual Impairment: No Limitations Hearing Ability: Normal Drafter Construction Required: No Beliefs That Will Affect Care: None marital status: Life Partner Current Living Situation: Significant Other Current Living Situation Comment: with Partner Filippo Richter current occupational status: retired Feels Safe at Home: Yes Childhood Exposure to Second-Hand Smoke: No Diet: low salt and regular caffeine: Yes Dental Care, Regularly: No Physical Activity Frequency: Other Seatbelt Use: always Sunscreen Use: Yes Assistive Devices: Glasses Physical Exam Physical Exam: Physical Exam: General: In no acute distress, stated age, well-nourished, ill appearing but non-toxic HEENT: Normocephalic, atraumatic, no scleral icterus, pupils around round, symmetrical, and reactive to light, moist mucus membranes, +JVD, trachea midline , no thyromegaly Chest/Pulm: No respiratory distress, symmetrical chest expansion, crackles and expiratory wheezing throughout Cardiac: irregular rate and rhythm, no murmurs noted Abdomen: Negative for ascites and bruising, normoactive bowel sounds, soft, non-tender to palpation throughout, negative Donato's sign Musculoskeletal: Symmetrical and without signs of acute trauma, upper and lower extremities with full ROM, no atrophy, spasticity, or flaccidity Extremities: Radial, dorsalis pedis, and posterior tibial pulses are intact and symmetrical, 1-2+ pitting edema noted in the BL LE's Skin: Warm, dry, no rashes , jaundice, lesions, or scars noted Neuro: Alert and oriented to person, place, month, year, and president, no focal defects, no tremors noted Psych: No acute distress, calm and cooperative during the exam Results & Data Results & Data Vital Signs (Past 12 Hours) Vital Signs Temp Pulse Pulse Resp BP BP Pulse Ox 03/08/24 17:07 78 03/08/24 17:00 78 20 117/54 L 98 03/08/24 16:35 89 L 03/08/24 16:35 77 20 89 L 03/08/24 16:35 77 20 136/61 89 L 03/08/24 15:36 36.4 C L 90 16 116/61 90 O2 Del Method O2 Flow Rate 03/08/24 17:07 03/08/24 17:00 Nasal Cannula 2 03/08/24 16:35 Nasal Cannula 0 03/08/24 16:35 Room Air 03/08/24 16:35 Room Air 03/08/24 15:36 Room Air Laboratory Results Abnormal lab results 03/08/24 Range/Units 15:48 WBC 4.65 L (4.8-10.8) K/ul RBC 3.59 L (4.20-5.40) M/uL Hgb 11.5 L (12.0-16.0) g/dl Hct 34.2 L (37.0-47.0) % RDW Std Deviation 53.4 H (36.4-46.3) fL RDW Coeff of Lynnette 15.3 H (11.5-14.5) % Plt Count 95 L (130-400) K/uL Lymph # (Auto) 0.58 L (1.20-3.40) K/uL Platelet Estimate Decreased L (Normal) PT 13.0 H (9.0-12.0) Seconds INR 1.2 H (0.9-1.1) APTT 48 H (21-31) Seconds Sodium 130 L (136-145) mmol/L Chloride 94 L (98-107) mmol/L Anion Gap 13 H (3-11) Glucose 131 H (70-99(Fasting)) mg/dl Total Bilirubin 4.1 H (0.2-1.0) mg/dl AST 68 H (13-39) U/L ALT 53 H (7-52) U/L Alkaline Phosphatase 141 H (34-104) U/L Troponin I High Sens 86.5 H* (0-14) pg/ml Anaplasma Smear See Comment A Diagnostic Findings Chest X-Ray 03/08/24 15:39 XR chest 2V PA/lateral HISTORY: 83 years-old Female dyspnea, fever acute shortness of breath COMPARISON: 12/24/2022 TECHNIQUE: PA and lateral views of the chest FINDINGS: Cardiomegaly. Prior median sternotomy with aortic endograft. Atherosclerosis of the aorta. No pneumothorax, large pleural effusion, lobar airspace consolidation or overt pulmonary edema. Pulmonary vascular congestion. Chronic interstitial coarsening. Degenerative changes of the shoulders and spine. Partially imaged lumbar spinal fusion hardware. IMPRESSION: Cardiomegaly with pulmonary vascular congestion. ACT 112: Negative or not required by law. The above report was generated using voice recognition software. It may contain grammatical, syntax or spelling errors. Electronically signed by: Syd Avila M.D. 03/08/2024 5:03 PM ECG Additional Comments: atrial fibrillation without acute ST segment or t-wave changes Code Status & VTE Plan Code Status Full code VTE Prophylaxis Plan VTE Prophylaxis will be ordered: Yes Supervising Physician Co-Signing Physician Notes Patient seen and examined, chart reviewed, case discussed with Jim Prieto PA-C and I agree with the assessment and plan as above except as otherwise noted Labs and images reviewed Patient is an 83-year-old female with a history of paroxysmal A-fib on Eliquis, bioprosthetic AVR, hypertension, hypercholesterolemia who presents to the ER after referral from urgent care for hypoxia. She has had shortness of breath, body aches, nausea and has been feeling generally poor for approximately 2 weeks. In the ER she is found to be thrombocytopenic with a transaminitis and elevated lactate. Anaplasma smear is positive for inclusions and Lyme screen is positive. Patient is suspected to have acute Lyme and anaplasmosis. She is admitted on doxycycline. Chest x-ray shows pulmonary vascular congestion but is not overtly volume overloaded and shows no pulmonary edema. She is on aspirin for history of PCI, and apixaban for afib. She is thrombocytopenic, anaplasmosis but shows no signs of bleeding. Aspirin is continued and is critic al for stent protection, and platelet count while low is not critically suppressed. No signs of bleeding, Eliquis is also continued for stroke prophylaxis on admission. Agree with this management as above. Monitor closely for clinical worsening/Jerisch Herxheimer reaction following initiation of treatment PG Care Time/CCT Total # of Minutes Spent Total Time Spent with Patient: Total time spent is greater than 50% in coordination of care (as documented) at patient's floor/unit and/or counseling patient: Coding [place] [address] INT INP/OBS CARE 3/75MIN Patient Type Established History Comprehensive Exam Comprehensive Medical Decision Making High Complexity Diagnoses Hypoxia R09.02 Thrombocytopenia D69.6 Elevated LFTs R79.89 Acute on chronic heart failure with preserved ejection fraction I50.33 Lactate blood increased R79.89 Hyponatremia E87.1 Elevated troponin R79.89 Essential hypertension I10 Hypertension type: essential hypertension Coronary disease I25.10 Atrial fibrillation I48.91 (8) HTN (hypertension) Hypertension type: essential hypertension Qualified Code(s): I10 - Essential (primary) hypertension
[2024-03-08] MEDS: FUROSEMIDE 40 MG/4 ML VIAL IV ONE (18:06)
[2024-03-08] MEDS: DOXYCYCLINE HYCLATE 100 MG CAP PO STA (18:06)
[2024-03-08 18:19] LABS: Base Excess VBG 0.7 mEq/L; HCO3 VBG 25 mmol/L; Oxygen Saturation VBG < 60.0 %; PCO2 VBG 40 mmHg (38-50); PO2 VBG 28 mmHg; pH VBG 7.41 (7.36-7.41)
[2024-03-08 18:27] LABS: Lyme Screen Rflx Confirmation Positive (Negative)
[2024-03-08 18:50] LABS: Appearance Urine Clear (Clear); Bacteria Urine Automated None Seen (None Seen); Bilirubin Urine Negative (Negative); Blood Urine 2+ (Negative); Color Urine Dark Yellow; Glucose Urine UA Negative (Negative); Ketones Urine 1+ (Negative); Leukocyte Esterase Urine Trace (Negative); Nitrite Urine Negative (Negative); Protein Urine 2+ (Negative); Specific Gravity Urine 1.011 (1.000-1.030); Urobilinogen Urine Positive (Negative); WBC Urine Automated 0-5 /hpf (0-5)
[2024-03-08] MEDS: METOPROLOL TARTRATE 25 MG TAB PO SCH (21:39)
[2024-03-08] MEDS: APIXABAN 5 MG TABLET PO SCH (21:45)
[2024-03-09] MEDS: DOXYCYCLINE HYCLATE 100 MG CAP PO SCH (05:41)
--- NOTE | 2024-03-09 07:06 | Ultrasound Report ---
ABDOMINAL ULTRASOUND, RIGHT UPPER QUADRANT HISTORY: Acutely elevated LFTs Low platelets, elevated LFT's. COMPARISON: CTA chest 01/29/2021. FINDINGS: Pancreas: The pancreas is mostly obscured by bowel gas. Liver: Unremarkable. Gallbladder: There is suboptimal evaluation of the gallbladder secondary to calcifications within the garrett hepatis which may represent calcifications of the gallbladder wall versus stone filled gallbla dder. No definite gallbladder wall thickening or pericholecystic fluid identified. The sonographic Mu rphy's sign was unable to be assessed secondary to pain medication recently administered to the patie nt. CBD: 12 mm Right kidney: No hydronephrosis. IMPRESSION: 1. 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 No definite sonographic evidence of acute c holecystitis. 2. Dilated common bile duct could be correlated with serum bilirubin. ACT 112: Negative or not required by law. Electronically signed by: Syd Avila M.D. 03/09/2024 7:04 AM
[2024-03-09] MEDS ORDERED: 0.2 MICRON FILTER SET 1 EACH IV ONE (08:22)
[2024-03-09] MEDS ORDERED: AMIODARONE / D5W 150 MG/100 ML BAG IV STA (08:22)
[2024-03-09 08:27] LABS: Albumin Globulin Ratio 0.9 (0.9-2); BUN Creatinine Ratio 25.4 (10-20); Bilirubin,Total 2.8 mg/dl (0.2-1.0); Calcium 8.4 mg/dl (8.6-10.3); Creatinine Clr Calc Pharmacy 67.3 ml/min; Est GFR (African American) 92.6 ml/min; Est GFR (Non-African American) 79.9 ml/min; Globulin 3.4 gm/dl (2.5-4.0); INR 1.2 (0.9-1.1); Magnesium 2.2 mg/dl (1.7-2.4); Prothrombin Time 12.9 Seconds (9.0-12.0); Total Protein 6.4 gm/dl (6.0-8.3)
[2024-03-09 08:39] LABS: Basophils # (auto) 0.01 K/uL (0.00-0.20); Basophils % (auto) 0.3 %; Hematocrit (blood only) 31.5 % (37.0-47.0); Hemoglobin 10.3 g/dl (12.0-16.0); Immature Granulocytes # (auto) 0.01 K/uL (0.01-0.20); Immature Granulocytes % (auto) 0.3 %; Lymphocytes # (auto) 0.94 K/uL (1.20-3.40); Lymphocytes % (auto) 28.5 %; Mean Corpuscular Hgb Conc 32.7 g/dL (32.0-36.0); Mean Corpuscular Volume 94.9 fL (80.0-100.0); Mean Platelet Volume 11.7 fL (9.4-12.4); Monocytes # (auto) 0.42 K/uL (0.11-0.59); Monocytes % (auto) 12.7 %; Neutrophils # (auto) 1.92 K/uL (1.40-6.50); Neutrophils % (auto) 58.2 %; Platelet Count 83 K/uL (130-400); Polychromasia 1+; RDW Coefficient of Variation 15.3 % (11.5-14.5); RDW Standard Deviation 53.5 fL (36.4-46.3); Red Blood Count 3.32 M/uL (4.20-5.40); Toxic Vacuolation 1+
[2024-03-09] MEDS: ASPIRIN 81 MG ECTAB PO SCH (08:53)
--- NOTE | 2024-03-09 08:53 | Cardiology Consultation ---
Date of Consultation March 09, 2024 Assessment & Plan (1) Paroxysmal atrial fibrillation with RVR: (2) Paroxysmal atrial flutter: (3) Hypotension: Mrs. De Luna is an 83 year old female with a history of Hypertension, Hypercholesterolemia, CAD s/p LCx NHI x 2 03/21/21, Aortic Valve Disease s/p Bioprosthetic AVR 2008 s/p TAVR 03/21/21, Arthritis, Spinal Stenosis, Chronic Diastolic CHF, and Paroxysmal Atrial Fibrillation who presented acutely to [facility] ER on 03/08/24 at the recommendation of her Urgent Care provider due to concerns of hypoxia on RA. Patient states that she went to the Urgent Care on 03/08/24 for evaluation because she had body aches/arthralgias and malaise over the past couple of weeks then apparently developed some wheezing and exertional dyspnea. She was noted by her daughter to have more labored breathing over the past few days, and patient agreed that she was more short of breath with minor activities such as walking. She is normally maintained on Lasix 80 mg daily but she missed 2 doses leading up to her presentation. On arrival to the ER she was noted to be hypoxic at 89% on RA but otherwise stable and in no acute distress. Laboratories showed a WBC of 4.65, platelet count of 95, anion gap of 13 with bicarb level being normal, sodium of 130, total bili of 4.1, AST of 68, ALT of 53, alkaline phos of 141. Serum potassium and magnesium levels are within normal limits, initial high sensitivity Troponin I of 86.5 pg/mL with a follow-up value of 71.1 pg/mL. BNP is elevated at 448 pg/mL and her CXR is showed cardiomegaly and pulmonary vascular congestion. Her Lyme screen is positive with negative Lyme IgA or Lyme IgG. Her initial EKG showed NSR at 88 bpm, cannot rule out age indeterminate anterior CA. Patient was given IV Lasix in the ER. Patient was subsequently admitted and placed on IV Lasix b.i.d. and her shortness of breath improved. Unfortunately shortly after midnight the patient had a brief run of atrial tachycardia followed by the development 0048 of what looks to be atrial flutter and now is in atrial fibrillation with RVR. She is unable to receive IV Amiodarone in room 253-2 and is awaiting transfer to the PCU so Amiodarone can be started. At the present time, the patient was lying flat in her bed when I walked into the room and despite relatively hypotensive blood pressure readings -- she is asymptomatic. Patient denies any shortness a breath at the present time, and she only has an intermittent sensation of palpitations/tachy-palpitations with her atrial fibrillation. She still gets mildly short of breath with walking. Her acute on chronic diastolic CHF appears to be improving she has a negative fluid balance of greater than 1600 mL, and her body weight is down approximately 6.2 lb since being admitted yesterday. Patient is most likely hypotensive due to her heart rate. As the patient is not in any acute distress, her breathing has improved, and she has not had any symptoms associated with her relative hypotension -- we recommend the followin. Agree with transfer to PCU for IV Amiodarone loading and hopefully she will convert with this antiarrhythmic. 2. Continue Eliquis 5 mg b.i.d.. 3. Continue Lopressor 25 mg b.i.d.. (4) Acute on chronic heart failure with preserved ejection fraction: (5) History of aortic valve replacement: (6) S/P TAVR (transcatheter aortic valve replacement): History of Severe Aortic Stenosis s/p Bioprosthetic AVR 2008 s/p TAVR 03/21/21. She presented with acute on chronic diastolic CHF (HFpEF) due to her history of valvular heart disease and noncompliance with Lasix. As mentioned above she has a negative fluid balance of greater than 1600 mL in her body weight is down 6.2 lb since admission. 1. Continue to monitor daily body weights. 2. Monitor I&Os. 3. Her IV Lasix was held this morning due to relative hypotension. She should s oon be able to convert over to oral Lasix 80 mg daily which is her usual daily maintenance dose. 4. Strict low-sodium diet. 5. Continue Lopressor 25 mg b.i.d.. 6. Monitor daily laboratories. (7) Coronary disease: (8) Stented coronary artery: CAD s/p Resolute Irwin 3.5 x 18 mm drug-eluting stent and a Resolute [place] 3.0 x 15 mm in her proximal to mid LCx. She has a chronically occluded RCA. -- Her slightly elevated high sensitivity troponin I levels are likely related to demand ischemia related to decompensated diastolic CHF and hypoxemia on admission. -- As she is not having any anginal symptoms despite the presence of AFib with RVR, would not recommend repeating cardiac enzymes unless she were to become symptomatic. Recommend followin. Continue Aspirin 81 mg daily. 2. Continue Lopressor 25 mg b.i.d.. 3. Continue Atorvastatin 80 mg daily. Thank you for asking us to see this patient consultation. History of Present Illness Reason for Consultation: -- A-Fib with RVR. -- Hypotension. Requesting Physician: Luis Mendez MD Attending Physician: Justin Brock MD History of Present Illness Mrs. De Luna is an 83 year old female with a history of Hypertension, Hypercholesterolemia, CAD s/p LCx NHI x 2 03/21/21, Aortic Valve Disease s/p Bioprosthetic AVR 2008, Arthritis, Spinal Stenosis, Chronic Diastolic CHF, and Paroxysmal Atrial Fibrillation who presented acutely to [facility] ER on 03/08/24 at the recommendation of her Urgent Care provider due to concerns of hypoxia on RA. Patient states that she went to the Urgent Care on 03/08/24 for evaluation because she had body aches/arthralgias and malaise over the past couple of weeks then apparently developed some wheezing and exertional dyspnea. She was noted by her daughter to have more labored breathing over the past few days, and patient agreed that she was more short of breath with minor activities such as walking. She is normally maintained on Lasix 80 mg daily but she missed 2 doses leading up to her presentation. On arrival to the ER she was noted to be hypoxic at 89% on RA but otherwise stable and in no acute distress. Laboratories showed a WBC of 4.65, platelet count of 95, anion gap of 13 with bicarb level being normal, sodium of 130, total bili of 4.1, AST of 68, ALT of 53, alkaline phos of 141. Serum potassium and magnesium levels are within normal limits, initial high sensitivity Troponin I of 86.5 pg/mL with a follow-up value of 71.1 pg/mL. BNP is elevated at 448 pg/mL and her CXR is showed cardiomegaly and pulmonary vascular congestion. Her Lyme screen is positive with negative Lyme IgA or Lyme IgG. Her initial EKG showed NSR at 88 bpm, cannot rule out age indeterminate anterior CA. Patient was given IV Lasix in the ER. Patient was subsequently admitted and placed on IV Lasix b.i.d. and her shortness of breath improved. Unfortunately shortly after midnight the patient had a brief run of atrial tachycardia followed by the development 0048 of what looks to be atrial flutter and now is in atrial fibrillation with RVR. She is unable to receive IV Amiodarone in room 253-2 and is awaiting transfer to the PCU so Amiodarone can be started. At the present time, the patient was lying flat in her bed when I walked into the room and despite relatively hypotensive blood pressure readings, she immediately sat of and interacted with me. Patient denies any shortness a breath at the present time, and she only has an intermittent sensation of palpitations/tachy-palpitations with her atrial fibrillation. She specifically denies any chest pain, heaviness, tightness, pressure, discomfort, or angina pectoris. She denies any neck, jaw, back, or arm pain. She denies any shortness a breath, orthopnea, or PND. She still gets mildly short of breath with walking. She denies any syncope near-syncope, weak spells, dizzy spells, or lightheadedness. ECHOCARDIOGRAM 05/14/23: 1. Normal LV size thickness, and systolic function. 2. No regional wall motion abnormalities. 3. LVEF 65% to 70%. 4. TAVR as well seated with the expected gradient. 5. [id number] mitral regurgitation. HISTORICAL BACKGROUND: Patient was hospitalized twice at [facility] in the spring with acute exacerbations of Diastolic CHF secondary to her severely stenotic bioprosthetic aortic valve replacement and dietary salt indiscretion. She was eventually transferred to [facility] for TAVR evaluation. Patient underwent Cardiac Catheterization which demonstrated a chronically occluded RCA with collaterals, and an 80% proximal LCx stenosis, LAD was patent without significant disease. She underwent deployment of a Resolute [place] 3.5 x 18 mm drug-eluting stent and a Resolute [place] 3.0 x 15 mm in her proximal to mid LCx. Her previous Mosaic bioprosthetic AVR was ballooned, and subsequently a 26 mm Medtronic Evolut Pro Plus Valve was deployed inside of her previous Mosaic. Patient tolerated this procedure well. Patient was subsequently transferred to [facility] and she is currently wearing a 30 day MCOT as ordered by her physicians at [place]. ECHOCARDIOGRAM 01/30/21: -- Normal LV systolic function, normal wall motion. -- LVH. -- Bioprosthetic AVR is severely narrowed, velocity > 5 meters/sec, peak gradient 100 mmHg. -- Mild to moderate mitral regurgitation. Allergies Allergy/AdvReac Type Severity Reaction Status Date / Time No Known Allergies Allergy Unknown PT NOT Verified 03/08/24 17:02 ALLERGIC TO OXYCODONE-HAD BEFORE WITHOUT PROB Home Medications Medication Instructions Recorded Confirmed Type multivitamin (Daily Multi-Vitamin 1 tab PO DAILY 05/24/19 03/08/24 History tablet) acetaminophen 325 mg capsule 650 mg PO Q4H PRN Pain 04/09/21 03/08/24 History aspirin 81 mg tablet,delayed 81 mg PO DAILY #90 tabs 07/15/22 03/08/24 Rx release metoprolol tartrate 25 mg tablet 25 mg PO BID #90 tabs 02/17/23 03/08/24 Rx potassium chloride 20 mEq 60 meq (3 x 20 mEq) PO DAILY #270 07/23/23 03/08/24 Rx tablet,extended release tabs apixaban 5 mg tablet (Eliquis) 5 mg PO BID #180 tabs 11/30/23 03/08/24 Rx atorvastatin 80 mg tablet 80 mg PO HS #90 tabs 01/14/24 03/08/24 Rx furosemide 40 mg tablet (Lasix) 80 mg (2 x 40 mg) PO DAILY #180 02/15/24 03/08/24 Rx tabs cholecalciferol (vitamin D3) 25 0 mcg PO DAILY 03/08/24 03/08/24 History mcg (1,000 unit) capsule (Vitamin D3) Patient History Medical History Hypokalemia Renal insufficiency NSTEMI (non-ST elevated myocardial infarction) Arthritis HLD (hyperlipidemia) HTN (hypertension) Hypercholesterolemia Medicare annual wellness visit, subsequent Spinal stenosis Surgical History History of tubal ligation History of total knee arthroplasty B/L, 2004, Dr Tavares Hx of repair of rotator cuff right, 1992, Dr Tavares History of cataract surgery History of back surgery Family History Mother Coronary heart disease Father Malignant neoplasm of pancreas Denies family history of Ovarian cancer Prostate cancer Myocardial infarction Breast cancer Colorectal cancer Social History Smoking Status: Former smoker Tobacco Type: Cigarettes Age Started Using Tobacco: 15; Age Quit Using Tobacco: 52; packs per day: 1; Cigarettes Per Day: 20; Second Hand Exposure: No; Do You Dip or Chew Tobacco: No; Hx Alcohol Use: No Hx Substance Use: No Preferred Language: Persian Communication Ability: Effective Visual Impairment: No Limitations Hearing Ability: Normal Ball Maker Required: No Beliefs That Will Affect Care: None marital status: Life Partner Current Living Situation: Spouse Current Living Situation Comment: with Partner Filippo Richter current occupational status: retired Other Information That Helps Us Care for You: No Feels Safe at Home: Yes Safety Concerns: Feels Safe At This Time Childhood Exposure to Second-Hand Smoke: No Diet: low salt and regular caffeine: Yes Dental Care, Regularly: No Physical Activity Frequency: Other Seatbelt Use: always Sunscreen Use: Yes Assistive Devices: Denture - Upper, Denture - Lower, Glasses and Walker Review of Systems Review of Systems: -- She denies any fevers, chills, or nig ht sweats. -- She denies any neurologic symptoms larry ggestive of stroke or mini stroke. Physical Exam Physical Exam: Blood pressure is 95/64, pulse 130 and irregularly irregular. GENERAL: Patient in no acute distress. HEENT: Head is atraumatic, normocephalic. EOM's intact. Facies symmetric. No perioral cyanosis. NECK: No JVD. JVP is elevated. Carotid upstrokes are + 2 bilaterally with a transmitted murmur vs bruits. CHEST/LUNGS: Absent breath sounds in bilateral bases, scattered crackles in lower lung taylor. CVS: S1 and S2 are irregularly irregular and tachycardia with a grade 2/6 basal systolic murmur heard best at the right 2nd ICS that radiates to the LSB and suprasternal notch. No diastolic murmurs. No gallops or rubs. PMI is nonpal pable. No lifts, heaves, or thrills. No abdominal aortic or renal bruits. Median sternotomy scar is present. ABDOMINAL EXAM: Bowel sounds are present. No masses, organomegaly, or tenderness. EXTREMITIES: No clubbing or cyanosis. No edema. Intact radial pulses bilaterally. NEUROLOGIC EXAM: Patient is awake, alert, and oriented. Pleasant and cooperative. Answers questions appropriately. Speech is clear. EAP CLINICIAN: -- Initially showed normal sinus rhythm, shortly after midnight had a run of atrial tachycardia followed by the onset of atrial flutter at 0048 and is now in atrial fibrillation with RVR. Results & Data Vital Signs (Past 12 Hours) Vital Signs Temp Pulse Pulse Pulse Resp BP BP 03/09/24 08:02 36.6 C 129 H 18 90/65 L 95/64 L 03/09/24 03:23 36.6 C 97 H 16 99/66 L 03/08/24 23:41 94 H 03/08/24 22:32 37.7 C H 83 16 114/71 03/08/24 21:49 03/08/24 21:18 36.9 C 98 H 16 99/63 L 03/08/24 21:17 Pulse Ox Pulse Ox O2 Del Method O2 Del Method O2 Flow Rate O2 Flow Rate 03/09/24 08:02 98 Nasal Cannula 2 03/09/24 03:23 97 Nasal Cannula 2 03/08/24 23:41 03/08/24 22:32 97 Nasal Cannula 2 03/08/24 21:49 Nasal Cannula 2 03/08/24 21:18 03/08/24 21:17 97 Nasal Cannula 2 Laboratory Results Laboratory Results - last 24 hr 03/08/24 03/08/24 03/08/24 15:48 16:39 17:51 WBC 4.65 L RBC 3.59 L Hgb 11.5 L Hct 34.2 L MCV 95.3 MCH 32.0 MCHC 33.6 RDW Std Deviation 53.4 H RDW Coeff of Lynnette 15.3 H Plt Count 95 L MPV 10.7 Immature Gran % (Auto) 0.4 Neut % (Auto) 80.2 Lymph % (Auto) 12.5 [place] % (Auto) 6.7 Eos % (Auto) 0.0 Baso % (Auto) 0.2 Neut # (Auto) 3.73 Lymph # (Auto) 0.58 L [place] # (Auto) 0.31 Eos # (Auto) 0.00 Baso # (Auto) 0.01 Immature Gran # (Auto) 0.02 Toxic Vacuolation 1+ Platelet Estimate Decreased L Polychromasia 1+ Echinocytes 1+ Peripher Smr Path Cons Pending PT 13.0 H INR 1.2 H APTT 48 H PTT Ratio 1.8 VBG pH 7.41 VBG pCO2 40 VBG pO2 28 VBG HCO3 25 VBG O2 Saturation < 60.0 VBG Base Excess 0.7 Sodium 130 L Potassium 4.6 Chloride 94 L Carbon Dioxide 23 Anion Gap 13 H BUN 16 Creatinine 0.90 Est Cr Clr Drug Dosing 55.0 Est GFR ( Amer) 69.5 Est GFR (Non-Af Amer) 60.0 BUN/Creatinine Ratio 17.8 Glucose 131 H Osmolality Lactate Calcium 8.7 Magnesium 2.0 Total Bilirubin 4.1 H AST 68 H ALT 53 H Alkaline Phosphatase 141 H Troponin I High Sens 86.5 H* B-Natriuretic Peptide 448 H Total Protein 7.1 Albumin 3.4 Globulin 3.7 Albumin/Globulin Ratio 0.9 Urine Color Urine Appearance Urine pH Ur Specific [place] Urine Protein Urine Glucose (UA) Urine Ketones Urine Blood Urine Nitrite Urine Bilirubin Urine Urobilinogen Ur Leukocyte Esterase Urine WBC (Auto) Urine RBC (Auto) U Hyaline Cast (Auto) U Epithel Cells (Auto) Urine Bacteria (Auto) Urine Osmolality Ur Random Sodium Adenovirus (PCR) Not Detected Anaplasma Smear See Comment A Anaplasma Comment Pending Babesia Smear See Comment Babesia microti DNA PCR Pending B. pertussis DNA (PCR) Not Detected B.parapertussis DNA PCR Not Detected Lyme Disease Screen Positive H Lyme Disease IgG Ab Negative Lyme Disease IgM Ab Negative C. pneumoniae DNA (PCR) Not Detected Coronavirus OC43 (PCR) Not Detected Coronavirus HKU1 (PCR) Not Detected Coronavirus 229E (PCR) Not Detected SARS-CoV-2 (PCR) Not Detected Coronavirus NL63 (PCR) Not Detected Human Metapneumovir PCR Not Detected Influenza Type A (PCR) Not Detected Influenza Type B (PCR) Not Detected M. pneumoniae (PCR) Not Detected Parainfluenza 1 (PCR) Not Detected Parainfluenza 2 (PCR) Not Detected Parainfluenza 3 (PCR) Not Detected Parainfluenza 4 (PCR) Not Detected RSV (PCR) Not Detected Entero/Rhino (PCR) Not Detected 03/08/24 03/08/24 03/08/24 17:54 17:58 19:20 WBC RBC Hgb Hct MCV MCH MCHC RDW Std Deviation RDW Coeff of Lynnette Plt Count MPV Immature Gran % (Auto) Neut % (Auto) Lymph % (Auto) [place] % (Auto) Eos % (Auto) Baso % (Auto) Neut # (Auto) Lymph # (Auto) [place] # (Auto) Eos # (Auto) Baso # (Auto) Immature Gran # (Auto) Toxic Vacuolation Platelet Estimate Polychromasia Echinocytes Peripher Smr Path Cons PT INR APTT PTT Ratio VBG pH VBG pCO2 VBG pO2 VBG HCO3 VBG O2 Saturation VBG Base Excess Sodium Potassium Chloride Carbon Dioxide Anion Gap BUN Creatinine Est Cr Clr Drug Dosing Est GFR ( Amer) Est GFR (Non-Af Amer) BUN/Creatinine Ratio Glucose Osmolality 272 L Lactate 2.6 H* Calcium Magnesium Total Bilirubin AST ALT Alkaline Phosphatase Troponin I High Sens 71.1 H* D B-Natriuretic Peptide Total Protein Albumin Globulin Albumin/Globulin Ratio Urine Color Dark Yellow Urine Appearance Clear Urine pH 6.0 Ur Specific [place] 1.011 Urine Protein 2+ H Urine Glucose (UA) Negative Urine Ketones 1+ H Urine Blood 2+ H Urine Nitrite Negative Urine Bilirubin Negative Urine Urobilinogen Positive H Ur Leukocyte Esterase Trace H Urine WBC (Auto) 0-5 Urine RBC (Auto) 3-5 H U Hyaline Cast (Auto) 3-5 H U Epithel Cells (Auto) 3-5 H Urine Bacteria (Auto) None Seen Urine Osmolality 294 L Ur Random Sodium 12 Adenovirus (PCR) Anaplasma Smear Anaplasma Comment Babesia Smear Babesia microti DNA PCR B. pertussis DNA (PCR) B.parapertussis DNA PCR Lyme Disease Screen Lyme Disease IgG Ab Lyme Disease IgM Ab C. pneumoniae DNA (PCR) Coronavirus OC43 (PCR) Coronavirus HKU1 (PCR) Coronavirus 229E (PCR) SARS-CoV-2 (PCR) Coronavirus NL63 (PCR) Human Metapneumovir PCR Influenza Type A (PCR) Influenza Type B (PCR) M. pneumoniae (PCR) Parainfluenza 1 (PCR) Parainfluenza 2 (PCR) Parainfluenza 3 (PCR) Parainfluenza 4 (PCR) RSV (PCR) Entero/Rhino (PCR) 03/08/24 03/09/24 19:55 07:35 WBC 3.30 L RBC 3.32 L Hgb 10.3 L Hct 31.5 L MCV 94.9 MCH 31.0 MCHC 32.7 RDW Std Deviation 53.5 H RDW Coeff of Lynnette 15.3 H Plt Count 83 L MPV 11.7 Immature Gran % (Auto) 0.3 Neut % (Auto) 58.2 Lymph % (Auto) 28.5 [place] % (Auto) 12.7 Eos % (Auto) 0.0 Baso % (Auto) 0.3 Neut # (Auto) 1.92 Lymph # (Auto) 0.94 L [place] # (Auto) 0.42 Eos # (Auto) 0.00 Baso # (Auto) 0.01 Immature Gran # (Auto) 0.01 Toxic Vacuolation 1+ Platelet Estimate Polychromasia 1+ Echinocytes Peripher Smr Path Cons PT 12.9 H INR 1.2 H APTT PTT Ratio VBG pH VBG pCO2 VBG pO2 VBG HCO3 VBG O2 Saturation VBG Base Excess Sodium 133 L Potassium 4.0 Chloride 98 Carbon Dioxide 27 Anion Gap 8 BUN 18 Creatinine 0.71 Est Cr Clr Drug Dosing 67.3 Est GFR ( Amer) 92.6 Est GFR (Non-Af Amer) 79.9 BUN/Creatinine Ratio 25.4 H Glucose 103 H Osmolality Lactate 2.0 Calcium 8.4 L Magnesium 2.2 Total Bilirubin 2.8 H AST 61 H ALT 49 Alkaline Phosphatase 119 H Troponin I High Sens B-Natriuretic Peptide Total Protein 6.4 Albumin 3.0 L Globulin 3.4 Albumin/Globulin Ratio 0.9 Urine Color Urine Appearance Urine pH Ur Specific [place] Urine Protein Urine Glucose (UA) Urine Ketones Urine Blood Urine Nitrite Urine Bilirubin Urine Urobilinogen Ur Leukocyte Esterase Urine WBC (Auto) Urine RBC (Auto) U Hyaline Cast (Auto) U Epithel Cells (Auto) Urine Bacteria (Auto) Urine Osmolality Ur Random Sodium Adenovirus (PCR) Anaplasma Smear Anaplasma Comment Babesia Smear Babesia microti DNA PCR B. pertussis DNA (PCR) B.parapertussis DNA PCR Lyme Disease Screen Lyme Disease IgG Ab Lyme Disease IgM Ab C. pneumoniae DNA (PCR) Coronavirus OC43 (PCR) Coronavirus HKU1 (PCR) Coronavirus 229E (PCR) SARS-CoV-2 (PCR) Coronavirus NL63 (PCR) Human Metapneumovir PCR Influenza Type A (PCR) Influenza Type B (PCR) M. pneumoniae (PCR) Parainfluenza 1 (PCR) Parainfluenza 2 (PCR) Parainfluenza 3 (PCR) Parainfluenza 4 (PCR) RSV (PCR) Entero/Rhino (PCR) Diagnostic Findings CXR 03/08/24: Cardiomegaly. Prior median sternotomy with aortic endograft. Atherosclerosis of the aorta. No pneumothorax, large pleural effusion, lobar airspace consolidation or overt pulmonary edema. Pulmonary vascular congestion. Chronic interstitial coarsening. Degenerative changes of the shoulders and spine. Partially imaged lumbar spinal fusion hardware. IMPRESSION: Cardiomegaly with pulmonary vascular congestion. RUQ ULTRASOUND 03/09/24: 1. 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 No definite sonographic evidence of acute cholecystitis. 2. Dilated common bile duct could be correlated with serum bilirubin. Medications Administered Medication List Apixaban (Apixaban 5 Mg Tablet) 5 mg PO BID WADE Stop: 04/07/24 21:16 Last Admin: 03/09/24 08:54 Dose: 5 mg Documented By: Admin: 03/08/24 21:45 Dose: 5 mg Documented By: BURKE Aspirin (Aspirin 81 Mg Ectab) 81 mg PO DAILY WADE Stop: 04/08/24 08:59 Last Admin: 03/09/24 08:53 Dose: 81 mg Documented By: JACKY Doxycycline Hyclate (Doxycycline Hyclate 100 Mg Cap) 100 mg PO BID WADE Stop: 03/23/24 05:59 Last Admin: 03/09/24 05:41 Dose: 100 mg Documented By: BURKE Furosemide (Furosemide 40 Mg/4 Ml Vial) 40 mg IV BID17 WADE Stop: 04/08/24 08:59 Last Admin: 03/09/24 09:51 Dose: Not Given Documented By: JACKY Metoprolol Tartrate (Metoprolol Tartrate 25 Mg Tab) 25 mg PO BID WADE Stop: 04/07/24 21:16 Last Admin: 03/09/24 09:51 Dose: Not Given Documented By: Admin: 03/09/24 01:00 Dose: 25 mg Documented By: Admin: 03/08/24 21:39 Dose: Not Given Documented By: BURKE Discontinued Medications Doxycycline Hyclate (Doxycycline Hyclate 100 Mg Cap) 100 mg PO NOW STA Stop: 03/08/24 17:28 Last Admin: 03/08/24 18:06 Dose: 100 mg Documented By: KEELEY Furosemide (Furosemide 40 Mg/4 Ml Vial) 40 mg IV ONE ONE Stop: 03/08/24 17:28 Last Admin: 03/08/24 18:06 Dose: 40 mg Documented By: KEELEY PG Care Time/CCT Total # of Minutes Spent Total Time Spent with Patient: Total time spent is greater than 50% in coordination of care (as documented) at patient's floor/unit and/or counseling patient:41 C[place] [address] INT INP/OBS CARE 2/55MIN Patient Type Established Medical Decision Making Moderate Complexity Diagnoses Paroxysmal atrial fibrillation with RVR I48.0 Paroxysmal atrial flutter I48.92 Other specified hypotension I95.89 Hypotension type: other hypotension type Acute on chronic heart failure with preserved ejection fraction I50.33 History of aortic valve replacement Z95.2 S/P TAVR (transcatheter aortic valve replacement) Z95.2 Coronary artery disease involving [place] coronary artery of [place] heart without angina pectoris I25.10 Associated angina: without angina Coronary Disease-Associated Artery/Lesion type: [place] artery [place] vs. transplanted heart: [place] heart Stented coronary artery Z95.5 Time Spent (min) 65 (3) Hypotension Hypotension type: other hypotension type Qualified Code(s): I95.89 - Other hypotension (7) Coronary disease Associated angina: without angina Coronary Disease-Associated Artery/Lesion type: [place] artery [place] vs. transplanted heart: [place] heart Qualified Code(s): I25.10 - Atherosclerotic heart disease of [place] coronary artery without angina pectoris
[2024-03-09] MEDS: FUROSEMIDE 40 MG/4 ML VIAL IV SCH (09:51)
--- NOTE | 2024-03-09 11:59 | Electrocardiogram Report ---
Test Reason : Blood Pressure : / mmHG Vent. Rate : 088 BPM Atrial Rate : 088 BPM P-R Int : 182 ms QRS Dur : 078 ms QT Int : 378 ms P-R-T Axes : 043 017 073 degrees QTc Int : 457 ms Normal sinus rhythm with sinus arrhythmia When compared with ECG of 24-DEC-2022 15:04, Nonspecific T wave abnormality now evident in Lateral leads Confirmed by Miah Brock ([id number]) on 03/09/2024 11:58:33 AM Referred By: REFERRED SELF Confirmed By:Jose Carlos Brock
--- NOTE | 2024-03-09 12:14 | Hospitalist Progress Note ---
Date of Service March 09, 2024 Assessment & Plan (1) Acute on chronic heart failure with preserved ejection fraction: Plan: Patient admitted to the hospital on account of worsening shortness of breath and hypoxia. On chest x-ray noted to have pulmonary vascular congestion, elevated BNP Gained about 10 pounds of weight since December. 2D echo showed preserved ejection fraction 60 to 65% Started on IV Lasix 40 mg twice daily Monitor input and output, daily weight Fluid restriction, low-sodium diet. (2) Atrial fibrillation: Plan: A-fib with RVR, with low blood pressure Given a bolus of IV amiodarone Cardiology on consult. Continue Eliquis (3) Hypoxia: Plan: Secondary to pulmonary congestion from congestive heart failure (4) Thrombocytopenia: Plan: -Platelets of 95 today, no signs of bleeding -Likely due to anaplasmosis as initial screen shows intracytoplasmic neutrophilic inclusions -Patient denies abdominal pain, no signs of icterus of jaundice -Will obtain RUQ US for for further evaluation -S/P one dose of doxycycline in the ED, will continue BID at this time -Follow infectious workup -Will continue Eliquis and aspirin at this time as she is currently in afib, has previous coronary artery stents, is without bleeding, and with stable Hgb (5) Elevated LFTs: Plan: -Likely due to tick borne illness -Denies abd pain, nausea, vomiting diarrhea -Follow RUQ US ordered on admission -Avoid nephrotoxic agents -Monitor am CMP (6) Lactate blood increased: Plan: -Lactate ordered on admission is 2.6 -AG of 13 with bicarb WNL, VBG WNL -Patient has been stable and non-toxic appearing -Likely due to poor perfusion due to reduced cardiac output from CHF exacerbation -Continue current treatment of CHF exacerbation -Monitor repeat lactate (7) Hyponatremia: Plan: -Hypervolemic hyponatremia should improve following diuresis and fluid restriction (8) Elevated troponin: Plan: -Initial high sen trop of 86 -Patient denies chest pain -No acute ECG changes -Likely due to demand from acute CHF exacerbation (9) HTN (hypertension): Plan: -Stable -Continue metoprolol and IV diuresis (10) Coronary disease: Plan: -Denies chest pain -No acute ECG changes -Continue aspirin, metoprolol, and plavix Plan Transfer to PCU telemetry on account of low blood pressure and need for monitoring Admission and Anticipated Discharge Date Admission Date: March 08, 2024 Subjective Patient seen and examined today, states that shortness of breath is much improved. Review of Systems Review of Systems: All systems reviewed are negative, apart from the ones contained in the history. Physical Exam Physical Exam: The patient is awake, alert and oriented 3, well developed and well nourished, normocephalic and atraumatic, lying in bed and in no acute distress. HEENT--PERRL, EOMI, mucous membranes and oropharynx mildly dry Neck--supple. No JVD. No bruits. Thyroid normal, trachea midline, no adenopathy. Heart--normal S1 and S2. No murmurs, rubs or gallops. Lungs--clear bilaterally, no respiratory distress, no accessory muscle use. Abdomen--normal bowel sounds and soft. Extremities--no cyanosis or clubbing. No edema. Dermatologic--normal skin turgor, normal color, no abnormal lymph nodes, no rash. Neurologic--cranial nerves II through XII grossly intact. Rheumatologic--normal range of motion. Psychiatric--normal affect. Results & Data Results & Data Vital Signs (Past 12 Hours) Vital Signs Temp Pulse Resp BP BP Pulse Ox O2 Del Method 03/09/24 12:04 97.9 F 132 H 18 97/44 L 98 Nasal Cannula 03/09/24 10:44 97.9 F 141 H 18 109/73 93 Room Air 03/09/24 08:02 97.9 F 129 H 18 90/65 L 95/64 L 98 Nasal Cannula 03/09/24 03:23 97.9 F 97 H 16 99/66 L 97 Nasal Cannula O2 Flow Rate 03/09/24 12:04 2 03/09/24 10:44 03/09/24 08:02 2 03/09/24 03:23 2 PG Care Time/CCT Total # of Minutes Spent Total Time Spent with Patient: Total time spent is greater than 50% in coordination of care (as documented) at patient's floor/unit and/or counseling patient: Coding Level of Care Code 10667 SUB INP/OBS CARE 2/35MIN Diagnoses Acute on chronic heart failure with preserved ejection fraction I50.33 Atrial fibrillation I48.91 Hypoxia R09.02 Thrombocytopenia D69.6 Elevated LFTs R79.89 Lactate blood increased R79.89 Hyponatremia E87.1 Elevated troponin R79.89 Essential hypertension I10 Hypertension type: essential hypertension Coronary artery disease involving sax[place] coronary artery of saxman heart without angina pectoris I25.10 Coronary Disease-Associated Artery/Lesion type: [place] artery [place] vs. transplanted heart: saxman heart Associated angina: without angina Time Spent (min) 35 (9) HTN (hypertension) Hypertension type: essential hypertension Qualified Code(s): I10 - Essential (primary) hypertension (10) Coronary disease Coronary Disease-Associated Artery/Lesion type: [place] artery [place] vs. transplanted heart: saxman heart Associated angina: without angina Qualified Code(s): I25.10 - Atherosclerotic heart disease of saxman coronary artery without angina pectoris
[2024-03-09 14:09] LABS: Anaplasmosis Smear(Rpt to DOH) Pos for Anaplasma
[2024-03-10 07:33] LABS: Hematocrit (blood only) 31.6 % (37.0-47.0); Hemoglobin 10.5 g/dl (12.0-16.0); Mean Corpuscular Hgb Conc 33.2 g/dL (32.0-36.0); Mean Corpuscular Volume 93.2 fL (80.0-100.0); Mean Platelet Volume 11.6 fL (9.4-12.4); Platelet Count 103 K/uL (130-400); RDW Coefficient of Variation 15.1 % (11.5-14.5); RDW Standard Deviation 51.9 fL (36.4-46.3); Red Blood Count 3.39 M/uL (4.20-5.40); White Blood Count 3.47 K/ul (4.8-10.8)
[2024-03-10 07:58] LABS: INR 1.1 (0.9-1.1); Prothrombin Time 11.4 Seconds (9.0-12.0)
[2024-03-10 08:09] LABS: Albumin Globulin Ratio 0.9 (0.9-2); BUN Creatinine Ratio 36.6 (10-20); Bilirubin,Total 2.1 mg/dl (0.2-1.0); Calcium 8.4 mg/dl (8.6-10.3); Creatinine Clr Calc Pharmacy 66.8 ml/min; Est GFR (African American) 92.6 ml/min; Est GFR (Non-African American) 79.9 ml/min; Globulin 3.5 gm/dl (2.5-4.0); Magnesium 2.2 mg/dl (1.7-2.4); Total Protein 6.5 gm/dl (6.0-8.3)
[2024-03-10 08:35] LABS: Basophils # (auto) 0.02 K/uL (0.00-0.20); Basophils % (auto) 0.6 %; Echinocytes 1+; Eosinophils # (auto) 0.01 K/uL (0.00-0.50); Eosinophils % (auto) 0.3 %; Immature Granulocytes # (auto) 0.01 K/uL (0.01-0.20); Immature Granulocytes % (auto) 0.3 %; Lymphocytes # (auto) 1.45 K/uL (1.20-3.40); Lymphocytes % (auto) 41.8 %; Monocytes # (auto) 0.38 K/uL (0.11-0.59); Polychromasia 1+
--- NOTE | 2024-03-10 11:25 | Discharge Summary ---
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 On arrival to the ED she was noted to be hypoxic at 89% on RA but otherwise stable. Labs were significant for a WBC of 4.65, platelet count of 95, AG of 13 with bicarb WNL, sodium of 130, total bili of 4.1, AST of 68, ALT of 53, alk phos of 141, initial high sen trop of 86, with full respiratory biofire in process and initial tick borne panel noting intracytoplasmic neutrophilic inclusions. Pror to admission the patient was given 40 mg IV lasix and 100 mg PO Doxycycline. At the time of the exam the patient was sitting in bed in no acute distress with her daughter bedside, history was obtained from both. She states that she has been feeling generally unwell over the past 2 weeks. Fatigue, body aches, increased SOB, and a productive cough with white sputum. She states that she did not take her 80 mg PO lasix over the past 2 days as she forgot during the day and did not want to take it at night. Denies recent fever, chills, chest pain, palpitations, hemoptysis, abd pain, nausea, vomiting, diarrhea, dysuria, hematuria, melena, and recent trauma. She has had multiple tick bites in the past year but was never tested for lyme or other tick borne illnesses. She is a full code and her daughter is her POA. Principal Diagnosis acute on chronic chf, afib Discharge Exam The patient is awake, alert and oriented 3, well developed and well nourished, normocephalic and atraumatic, lying in bed and in no acute distress. HEENT--PERRL, EOMI, mucous membranes and oropharynx mildly dry Neck--supple. No JVD. No bruits. Thyroid normal, trachea midline, no adenopathy. Heart--normal S1 and S2. No murmurs, rubs or gallops. Lungs--clear bilaterally, no respiratory distress, no accessory muscle use. Abdomen--normal bowel sounds and soft. Extremities--no cyanosis or clubbing. No edema. Dermatologic--normal skin turgor, normal color, no abnormal lymph nodes, no rash. Neurologic--cranial nerves II through XII grossly intact. Rheumatologic--normal range of motion. Psychiatric--normal affect. Discharge Data Allergies Allergy/AdvReac Type Severity Reaction Status Date / Time No Known Allergies Allergy Unknown PT NOT Verified 03/08/24 17:02 ALLERGIC TO OXYCODONE-HAD BEFORE WITHOUT PROB Consultations 03/08/24 17:26 ED Decision to Admit Stat 03/09/24 08:14 Consult Cardiology Routine Ordered Studies 03/09/24 liver Urgent Hospital Course (1) Acute on chronic heart failure with preserved ejection fraction: Patient admitted to the hospital on account of worsening shortness of breath and hypoxia. On chest x-ray noted to have pulmonary vascular congestion, elevated BNP Gained about 10 pounds of weight since December. 2D echo showed preserved ejection fraction 60 to 65% Started on IV Lasix 40 mg twice daily Monitor input and output, daily weight Fluid restriction, low-sodium diet. (2) Atrial fibrillation: A-fib with RVR, with low blood pressure Given a bolus of IV amiodarone, converted to sinus ryhtm Cardiology on consult. Continue Eliquis, start PO Amiodarone 200mg daily. 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 shows intracytoplasmic neutrophilic inclusions -Patient denies abdominal pain, no signs of icterus of jaundice -Will obtain RUQ US for for further evaluation -S/P one dose of doxycycline in the ED, will continue BID at this time total of 10 days -Follow infectious workup -Will continue Eliquis and aspirin at this time as she is currently in afib, has previous coronary artery stents, is without bleeding, and with stable Hgb (5) Elevated LFTs: -Likely due to tick borne illness -Denies abd pain, nausea, vomiting diarrhea -Follow RUQ US ordered on admission -Avoid nephrotoxic agents -Monitor am CMP (6) Lactate blood increased: -Lactate ordered on admission is 2.6 -AG of 13 with bicarb WNL, VBG WNL -Patient has been stable and non-toxic appearing -Likely due to poor perfusion due to reduced cardiac output from CHF exacerbation -Continue current treatment of CHF exacerbation -Monitor repeat lactate (7) Hyponatremia: -Hypervolemic hyponatremia should improve following diuresis and fluid restriction (8) Elevated troponin: -Initial high sen trop of 86 -Patient denies chest pain -No acute ECG changes -Likely due to demand from acute CHF exacerbation (9) HTN (hypertension): -Stable -Continue metoprolol and IV diuresis (10) Coronary disease: -Denies chest pain -No acute ECG changes -Continue aspirin, metoprolol, and plavix Plan d/c home Total Time Total Time Spent Total Time Spent (In Minutes): 35 Discharge Plan Discharge Items Patient Disposition: Home - Self-Care Reason For Visit: HYPOXIA, CHF EXACERBATION, THROMBOCYTOPENIA, ELEVA Discharge Diagnosis: acute on chronic chf Activity: Resume your previous activity Non-emergency contact: Primary Care Provider and Digital Media Representative Call non-emergency contact if: you have any medication questions and your symptoms worsen Follow-up/Referrals: Teresa Disla MD [Primary Care Provider] - 03/15/24 1:00 pm Diet: Heart Healthy and Low Sodium (2gm) Fluids: 1500ml (6 cups) Ambulatory Orders: Chemistry/Liver Profile (Routine) Timeframe: 1 Week Location: Determined by Patient Ordered By: Luis Lowe Attending Provider Instructions: please make appointment to follow up with your Digital Media Representative Pending Studies at Discharge: No Stand-Alone Forms: My [facility] [employer], Smoking Cessation Medications and DC Order Prescriptions: New doxycycline hyclate 100 mg Capsule 100 mg PO BID 10 Days Qty: 20 0RF amiodarone 200 mg tablet 200 mg PO DAILY Qty: 30 0RF Continued acetaminophen 325 mg capsule 650 mg PO Q4H PRN (Reason: Pain) aspirin 81 mg tablet,delayed release (DR/EC) 81 mg PO DAILY Qty: 90 3RF metoprolol tartrate 25 mg tablet 25 mg PO BID Qty: 90 3RF potassium chloride 20 mEq tablet extended release 60 meq PO DAILY Qty: 270 3RF Eliquis 5 mg tablet 5 mg PO BID Qty: 180 3RF atorvastatin 80 mg tablet 80 mg PO HS Qty: 90 3RF furosemide [Lasix] 40 mg tablet 80 mg PO DAILY Qty: 180 3RF multivitamin [Daily Multi-Vitamin] tablet 1 tab PO DAILY cholecalciferol (vitamin D3) [Vitamin D3] 25 mcg (1,000 unit) Capsule 0 mcg PO DAILY Rx Instructions: PT UNSURE OF STRENGTH Discharge Orders: Discharge Order (Routine); Ordered 03/10/24 Ordered By: Luis Mendez Admission Data Admit Date/Time: 03/08/24 17:50 Attending Provider: Luis Mendez Admit Provider: Ivan Vinson Primary Care Provider: Teresa Disla Other Providers: Ivan Vinson; Miah Brock Coding Level of Care Code 01969 INP/OBS DISCH >30 MIN Diagnoses Acute on chronic heart failure with preserved ejection fraction I50.33 Atrial fibrillation I48.91 Hypoxia R09.02 Thrombocytopenia D69.6 Elevated LFTs R79.89 Lactate blood increased R79.89 Hyponatremia E87.1 Elevated troponin R79.89 Essential hypertension I10 Hypertension type: essential hypertension Coronary artery disease involving [place] coronary artery of [place] heart without angina pectoris I25.10 Coronary Disease-Associated Artery/Lesion type: [place] artery [place] vs. transplanted heart: [place] heart Associated angina: without angina Time Spent (min) 35
[2024-03-10] MEDS: POTASSIUM CHLORIDE CRTAB 20 MEQ TABCR PO STA (13:00)
[2024-03-12 14:38] LABS: Babesia microti DNA Not Detected (Not Detected)
== END 2024-03-10 13:54 | disposition home or self-care (01) | DRG 291 ==
LOC: ED 15:32 → SUATTDRO 17:50 → 2W 17:50 → 2S 03-09 13:06